=== PATIENT | female | born 1930 | race African-American/Black ===

== ENCOUNTER 2017-05-14 11:07 | Inpatient (IN) | payer MEDICARE ==
[2017-05-14] MEDS ORDERED: NS 0.9% 1000 ML* 1,000 ML IV ONE ×2 (11:34→16:02)
--- NOTE | 2017-05-14 12:10 | RAD ---
HISTORY: Weakness COMPARISONS: None VIEWS:1: Single frontal portable view of the chest at 11:48 AM FINDINGS: LINES AND TUBES: None. CARDIOMEDIASTINAL SILHOUETTE: The cardiomediastinal silhouette is normal for portable technique. PLEURA: The costophrenic angles are sharp. No pleural abnormalities are noted. LUNG PARENCHYMA: The lungs are clear. ABDOMEN: The upper abdomen is clear. There is no subphrenic gas. BONES AND SOFT TISSUES: No bone or soft tissue abnormalities are noted. IMPRESSION: NO ACTIVE CARDIOPULMONARY DISEASE.
--- NOTE | 2017-05-14 12:12 | RAD ---
INDICATION: Weakness COMPARISON: None TECHNIQUE: Noncontrast axial source images were acquired from the skull base to the vertex. FINDINGS: Ventricles/sulci: The ventricles and cisterns are normal in size and configuration for age. Brain parenchyma: There is no focal parenchymal finding, evidence of intracranial mass, or intracranial mass effect. Intracranial hemorrhage:None. Extra-axial spaces: There are no abnormal extra axial fluid collections or evidence of extra-axial mass. Calvarium: There is no calvarial fracture or other calvarial abnormality. Scalp: There is no evidence of scalp or extracalvarial soft tissue abnormality. Paranasal sinuses/mastoid: The paranasal sinuses and mastoid air cells are clear. Other: None. IMPRESSION: NEGATIVE EXAMINATION
[2017-05-14 12:43] LABS: Hematocrit 30 % (35-47); Hemoglobin 9.8 g/dl (12.0-16.0); Mean Corpuscular HGB Conc 32 g/dl (31-36); Mean Corpuscular Hemoglobin 30 pg (27-31); Mean Corpuscular Volume 92 fL (80-97); Mean Platelet Volume 12 um3 (7.4-10.4); Red Blood Count 3.27 10^6/ul (4.0-5.4); Red Cell Distribution Width 14 % (10.5-15); White Blood Count 12.2 10^3/ul (3.5-10.8)
[2017-05-14 12:45] LABS: Comments Flag Yes
[2017-05-14 12:46] LABS: Add Diff/Slide Review? Slide Review Added
[2017-05-14 12:55] LABS: Urine Bacteria 2+ (Absent); Urine Bilirubin Negative (Negative); Urine Glucose Negative (Negative); Urine Nitrite Positive (Negative)
[2017-05-14] MEDS ORDERED: Ciprofloxacin 400MG IVPREMIX(* 400 MG/200 ML BAG IVPB ONE (13:02)
[2017-05-14 13:19] LABS: Add Path Review? YES; Platelet Morphology Large
[2017-05-14 13:27] LABS: Troponin I 0.04 ng/mL (<0.04)
[2017-05-14 13:33] LABS: TSH (Thyroid Stimulating Horm) 0.04 mcIU/mL (0.34-5.60)
[2017-05-14 15:41] LABS: Albumin 2.8 g/dL (3.2-5.2); BUN/Creatinine Ratio 13.5 (8-20); C Reactive Protein 3.95 mg/L (< 5.00); EGFR African American 48.5 (>60); EGFR Non-African American 37.7 (>60); Globulin 5.5 g/dL (2-4); Magnesium 2.1 mg/dL (1.9-2.7); Potassium 2.9 mmol/L (3.5-5.0); Total Bilirubin 0.5 mg/dL (0.2-1.0); Total Protein 8.3 g/dL (6.4-8.9)
[2017-05-14 15:43] LABS: Calcium 13.9 mg/dL (8.6-10.3)
[2017-05-14] MEDS ORDERED: Potassium Chloride LIQUID* 20 MEQ PACKET PO ONE ×2 (16:01→17:22)
[2017-05-14] MEDS ORDERED: KCL 20 MEQ/100 ML IVPREMIX* 20 MEQ/100 ML BAG IV ONE ×2 (17:00→22:00)
[2017-05-14] MEDS ORDERED: KCL 10 MEQ/50 ML IVPREMIX* 10 MEQ/50 ML BAG IV SCH (17:00)
[2017-05-14] MEDS ORDERED: Potassium Chlor TAB* 20 MEQ TAB.ER PO ONE (17:00)
[2017-05-14] MEDS ORDERED: Calcitonin (Salmon) INJ* 200 UNITS/ML 2 ML VIAL IV SLOW PU SCH (17:00)
[2017-05-14] MEDS ORDERED: Calcitonin (Salmon) INJ* 200 UNITS/ML 2 ML VIAL IM SCH (18:05)
[2017-05-14 18:23] LABS: Free T3 3.9 pg/mL (2.5-3.9)
[2017-05-14 18:24] LABS: Free T4 2.15 ng/dL (0.61-1.12)
[2017-05-14] MEDS: NS 0.9% 1000 ML* 1,000 ML IV SCH (19:39)
[2017-05-14] MEDS: Calcitonin (Salmon) INJ* 200 UNITS/ML 2 ML VIAL IM SCH (19:50)
[2017-05-14] MEDS: Latanoprost 0.005%* 2.5 ml BTL BOTH EYES SCH (21:34)
[2017-05-14] MEDS: Heparin VIAL(*) 5000 UNITS/ML VIAL (FIVE THOUSAND) SUBCUT SCH (21:34)
[2017-05-14] MEDS: Acetaminophen TAB* 325 MG PO PRN (22:24)
--- NOTE | 2017-05-14 22:34 | HP ---
CC: Rosalio Stanley NP; Dr. Mustafa * ADMISSION HISTORY AND PHYSICAL: DATE OF ADMISSION: 05/14/17 PRIMARY CARE PROVIDER: Rosalio Stanley NP GREEN PRIZE PACKER: Dr. Mustafa. HEALTHCARE PROXY: Son, Guilherme, though no healthcare proxies on record. CODE STATUS: Full. Discussed with son. History obtained from interview with the patient's son, review of past medical records and EMS records. CHIEF COMPLAINT: Fatigue. HISTORY OF PRESENT ILLNESS: This is an 86-year-old female with little known medical history, relatively healthy until what the son describes as an adverse reaction to brimonidine starting in January. She started in response to the conjunctivitis that she developed from the eye drops. She was then started on Joie-D and developed hallucinations in February, which have been slow to resolve with some continued confusion since that time. However, the patient's son notes that she is at baseline A and O x3, ambulates with a cane and generally very active. However, over the last 2 days, she has been remaining in bed with a very little p.o. intake, but wants "a lot of water." He also notes that she has indicated some back pain that improved with massage. Two days prior, while talking on the phone with him, she did have a fall without loss of consciousness. Today when EMS arrived, she did indicate dysuria and the patient 's son has noted an increase in urinary frequency, unable to assess urgency as the patient is very sleepy, unable to relay meaningful information. The son has checked for and denies any recent fevers. No chills or rigors. No chest pain, shortness of breath, nausea, vomiting, or diarrhea although has had constipation. PAST MEDICAL HISTORY: Central retinal vein occlusion, glaucoma, cataracts bilaterally, hernia repair, history of known left bundle-branch block. HOME MEDICATIONS: Include: 1. Vitamin mixture with selenium 1 cap daily. 2. Pazeo 0.7% one drop both eyes in the morning. 3. Pain relieving cream topically daily as needed. 4. Magnesium 300 mg twice daily. 5. Loratadine 10 mg daily as needed. 6. Latanoprost 0.005% one drop both eyes in the evening. 7. Folic acid with vitamin B6 and folate 1 tab daily. 8. Cranberry 500 mg daily. 9. Refresh Teardrops 0.5% both eyes daily. 10. Calcium with vitamin D 500 mg daily. 11. Aspirin 81 mg daily. 12. Ascorbic acid 1000 mg daily. ALLERGIES: PENICILLIN, which causes a rash. SOCIAL HISTORY: Lives with son, spends time between [place] and [place]. Remote history of tobacco, quit in 1963. Drinks less than 3 drinks of alcohol per week. FAMILY HISTORY: Father had prostate cancer. Grandfather with an unknown cancer. Mother at the young age from tuberculosis. REVIEW OF SYSTEMS: As per HPI, per review of the patient's son, otherwise unobtainable from the patient. PHYSICAL EXAMINATION GENERAL: Elderly woman who appears stated age, lying flat in bed, eyes closed, no cardiopulmonary distress. VITALS: When seen by this author, 139/87, heart rate 90, respiratory rate is 16 , T- max in the emergency room is 98.6. She is 98% on 1 L. HEENT: Her oropharynx is clear with very dry mucous membranes. LUNGS: Clear to auscultation. HEART: Has a regular rate and rhythm with 2/6 systolic ejection murmur. ABDOMEN: Soft with mild suprapubic tenderness. EXTREMITIES: Warm, well perfused. 2+ pulses. Less than 2-second cap refill. Extremities are without clubbing, cyanosis, or edema; warm. NEURO: She is alert and oriented x0. She mumbles when I asked her name. She cannot say the year, where she is, but is able to identify her son by his voice standing at the bedside. She moves all extremities. She has cataracts in bilateral eyes. Right eye is 3 mm, left is 2. Sluggish reaction. Rest of cranial nerves not assessed secondary to the patient's inability to comply with physical exam. LABORATORY DATA/DIAGNOSTIC STUDIES: Pertinent laboratory data includes calcium 13.9 with albumin of 2.8, TSH of 0.4. Troponin I 0.04. Sodium 149, potassium 2.9. BUN 18, creatinine 1.33. White blood cell count of 12.2, hemoglobin 9.8 with MCV of 92, platelets 95, 68% neutrophils. Urine is positive for nitrites, leuk esterase, white blood cells, bacteria, squamous epithelial cells. Data reviewed. EKG: Left bundle-branch block. ASSESSMENT AND PLAN: This is an 86-year-old female, previously healthy, felt increasing fatigue, then lethargy in the setting of dysuria presenting to the hospital, found with hypercalcemia, hypokalemia, and acute kidney injury. It is possible this is all in the setting of urinary tract infection causing acute kidney injury with hypercalcemia compounded by the patient's calcium supplements. However, further investigation is needed while acute problems are treated. 1. Lethargy, suspect in the setting of underlying infection. The patient is receiving ciprofloxacin now dosed q.24 based on creatinine clearance of less than 30. Hypercalcemia may also be playing a role. Last checked was in August 2015, so the rate of change is unclear. Treated with IV crystalloids, calcitonin, and bisphosphonate. Recheck this evening and again in the morning. 2. Hypercalcemia. Again suspect in the setting of acute kidney injury and calcium supplementation; however, in the setting of acute kidney injury and noted back pain, we will also check SPEP and UPEP to evaluate for myeloma. 3. Elevated troponins suspect in the setting of demand in the setting of infection. We will trend troponins for 2 additional checks. 4. Acute kidney injury in the setting of potential infection as well as decreased p.o. intake. Treated with crystalloids. Recheck in the morning. 5. Hypokalemia. Replete now p.o. and IV. 6. Hypernatremia, suspect in the setting of dehydration with decreased p.o. intake and infection. 7. Low TSH, add on free T3 and free T4 now. 8. DVT prophylaxis, heparin subcu. 9. Code status is full. [id number]/[facility] #: [id number] MTDD
[2017-05-15 00:08] LABS: Albumin 2.7 g/dL (3.2-5.2); BUN/Creatinine Ratio 13.3 (8-20); EGFR African American 54.7 (>60); EGFR Non-African American 42.5 (>60); Globulin 5.6 g/dL (2-4); Total Bilirubin 0.5 mg/dL (0.2-1.0); Total Protein 8.3 g/dL (6.4-8.9)
[2017-05-15 00:16] LABS: Troponin I 0.05 ng/mL (<0.04)
[2017-05-15 04:39] LABS: Hematocrit 33 % (35-47); Hemoglobin 10.3 g/dl (12.0-16.0); Mean Corpuscular HGB Conc 32 g/dl (31-36); Mean Corpuscular Hemoglobin 29 pg (27-31); Mean Corpuscular Volume 92 fL (80-97); Mean Platelet Volume 12 um3 (7.4-10.4); Red Blood Count 3.51 10^6/ul (4.0-5.4); Red Cell Distribution Width 14 % (10.5-15); White Blood Count 12.2 10^3/ul (3.5-10.8)
[2017-05-15 04:40] LABS: Comments Flag Yes
[2017-05-15 04:41] LABS: Add Diff/Slide Review? Manual Diff Added
[2017-05-15 04:47] LABS: Albumin 2.7 g/dL (3.2-5.2); BUN/Creatinine Ratio 13.9 (8-20); Calcium 12.5 mg/dL (8.6-10.3); Direct Bilirubin 0.5 mg/dL (0.03-0.18); EGFR African American 53.6 (>60); EGFR Non-African American 41.7 (>60); Globulin 5.2 g/dL (2-4); Magnesium 1.7 mg/dL (1.9-2.7); Potassium 2.9 mmol/L (3.5-5.0); Total Bilirubin 0.5 mg/dL (0.2-1.0); Total Protein 7.9 g/dL (6.4-8.9)
[2017-05-15] MEDS: NS 0.9% 1000 ML* 1,000 ML IV SCH (05:34)
[2017-05-15] MEDS: Heparin VIAL(*) 5000 UNITS/ML VIAL (FIVE THOUSAND) SUBCUT SCH ×3 (05:38→22:20)
[2017-05-15 05:56] LABS: Ferritin 149.6 ng/mL (11-307)
[2017-05-15 06:30] LABS: Hypochromasia 1+; Immature Granulocytes 5 % (0-9); Macrocytosis 1+; Microcytosis 1+; Neutrophil % 71 % (38-83); Reactive Lymph % 1 % (0-6)
[2017-05-15] MEDS ORDERED: Potassium Chlor TAB* 20 MEQ TAB.ER PO SCH (08:00)
--- NOTE | 2017-05-15 08:16 | ED ---
Christel Viera Alfonso, scribed for Cliff Daigle MD on 05/14/17 at 1135 . Complex/Multi-Sys Presentation - HPI Summary HPI Summary: This patient is an 86 year old F presenting to [facility] accompanied by son with a chief complaint of generalized weakness since two days ago. The patient rates the pain 0/10 in severity. Symptoms aggravated and alleviated by nothing. Son reports loss of appetite (drinking a lot of juice but not eating much), inability to ambulate, hallucinations (after Joie D), constipation (last BM 4 -5 days ago), hip pain (secondary to fall two weeks ago), and weight loss. Son denies fever, chills, cough, CP, SOB, and dysuria. Son reports recent cataract surgery secondary to allergic conjunctivitis. - History Of Current Complaint Chief Complaint: EDWeakness Time Seen by Provider: 05/14/17 11:26 Hx Obtained From: Patient Onset/Duration: Sudden Onset, Lasting Days - 2, Still Present Timing: Constant Severity Currently: Moderate Severity Initially: Moderate Aggravating Factor(s): Nothing Alleviating Factor(s): Nothing. Associated Signs And Symptoms: Positive: Other - Son reports loss of appetite ( drinking a lot of juice but not eating much), inability to ambulate, hallucinations (after Joie D), constipation (last BM 4-5 days ago), hip pain (secondary to fall two weeks ago), and weight loss. Son denies fever, chills, cough, CP, SOB, and dysuria. - Allergies/Home Medications Allergies/Adverse Reactions: Allergies Allergy/AdvReac Type Severity Reaction Status Date / Time Penicillins [PCN] Allergy ITCHY AND Verified 10/18/15 10:04 RASH Home Medications: Home Medications Aspirin EC Low Dose* [Ecotrin EC Low Dose 81 MG*] 81 mg PO QAM 05/14/17 [ History Confirmed 05/14/17] Calcium/Vitamin D TAB 250/125* [Oscal D TAB 250/125*] 500 mg PO DAILY 05/14/17 [ History Confirmed 05/14/17] Carboxymethylcellulose Sodium [Refresh Tears] 0.5 % BOTH EYES DAILY 05/14/17 [ History Confirmed 05/14/17] Cranberry (Vaccinium Macrocarp [Cranberry Concentrate] 500 mg PO DAILY 05/14/17 [History Confirmed 05/14/17] Folic Acid-Vitamin B6-Vitamin [Folic Acid/B-6/B-12] 1 tab PO DAILY 05/14/17 [ History Confirmed 05/14/17] Magnesium [Magnesium Elemental] 300 mg PO BID 05/14/17 [History Confirmed ] Menthol-Methyl Salicylate (Lisa [Pain Relieving Cream] 1 cre TOPICAL DAILY PRN [History Confirmed 05/14/17] Pazeo 0.7% 1 drop BOTH EYES QAM 05/14/17 [History Confirmed 05/14/17] Vitamin Mixture [Vitamin E/Selenium 400-50 Unit-Mcg] 1 cap PO DAILY 05/14/17 [ History Confirmed 05/14/17] PMH/Surg Hx/FS Hx/Imm Hx Musculoskeletal History: Reports: Hx Arthritis - HANDS Sensory History: Reports: Hx Cataracts - BILATERAL, Hx Glaucoma - BILATERAL Denies: Hx Contacts or Glasses, Hx Hearing Aid Opthamlomology History: Reports: Hx Cataracts - BILATERAL, Hx Glaucoma - BILATERAL Denies: Hx Contacts or Glasses - Surgical History Surgery Procedure, Year, and Place: HERNIA REPAIR-1980. cataract surgery Hx Anesthesia Reactions: No Infectious Disease History: No Infectious Disease History: Denies: Traveled Outside the [place] in Last 30 Days - Family History Known Family History: Positive: Unknown - Per history and physical 10/14/15 - Social History Alcohol Use: Daily Alcohol Amount: 1 DRINK PER DAY Substance Use Type: Reports: None Smoking Status (MU): Former Smoker Amount Used/How Often: < 1 PPD X5 YEARS Have You Smoked in the Last Year: No Review of Systems Negative: Fever, Chills Negative: Chest Pain Negative: Shortness Of Breath, Cough Gastrointestinal: Other - Positive reports loss of appetite (drinking a lot of juice but not eating much), constipation (last BM 4-5 days ago), and weight loss Negative: dysuria Positive: Other - Positive inability to ambulate, hip pain (secondary to fall two weeks ago) Neurological: Other - Positive hallucinations (after Joie D) Positive: Weakness All Other Systems Reviewed And Are Negative: Yes Physical Exam - Summary Physical Exam Summary: VITAL SIGNS: Reviewed. GENERAL: Patient is a debilitated and ill appearing female who is lying comfortable in the stretcher. Patient is not in any acute respiratory distress. HEAD AND FACE: No signs of trauma. No ecchymosis, hematomas or skull depressions. No sinus tenderness. EYES: PERRLA, EOMI x 2, No injected conjunctiva, no nystagmus. EARS: Hearing grossly intact. Ear canals and tympanic membranes are within normal limits. MOUTH: Oropharynx within normal limits. NECK: Supple, trachea is midline, no adenopathy, no JVD, no carotid bruit, no c- spine tenderness, neck with full ROM. CHEST: Symmetric, no tenderness at palpation LUNGS: Clear to auscultation bilaterally. No wheezing or crackles. CVS: Regular rate and rhythm, S1 and S2 present, no murmurs or gallops appreciated. ABDOMEN: Soft, non-tender. No signs of distention. No rebound no guarding, and no masses palpated. Bowel sounds are normal. EXTREMITIES: FROM in all major joints, no edema, no cyanosis or clubbing. NEURO: Alert. No acute neurological deficits. Speech is soft and follows commands. SKIN: Dry and warm Triage Information Reviewed: Yes Vital Signs On Initial Exam: Initial Vitals Temp Pulse Resp BP Pulse Ox 98.6 F 97 15 133/94 95 05/14/17 11:14 05/14/17 11:14 05/14/17 11:14 05/14/17 11:14 05/14/17 11:14 Vital Signs Reviewed: Yes Diagnostics - Vital Signs Vital Signs Temp Pulse Resp BP Pulse Ox 05/14/17 11:14 98.6 F 97 15 133/94 95 - Laboratory Lab Results: Lab Results 05/14/17 05/14/17 05/14/17 Range/Units 12:25 12:25 12:25 WBC 12.2 H (3.5-10.8) 10^3/ul RBC 3.27 L (4.0-5.4) 10^6/ul Hgb 9.8 L (12.0-16.0) g/dl Hct 30 L (35-47) % MCV 92 (80-97) fL MCH 30 (27-31) pg MCHC 32 (31-36) g/dl RDW 14 (10.5-15) % Plt Count 95 L (150-450) 10^3/ul MPV 12 H (7.4-10.4) um3 Neut % (Auto) 68.2 (38-83) % Lymph % (Auto) 21.0 L (25-47) % [place]leigh % (Auto) 8.6 (1-9) % Eos % (Auto) 1.3 (0-6) % Baso % (Auto) 0.9 (0-2) % Absolute Neuts (auto) 8.3 H (1.5-7.7) 10^3/ul Absolute Lymphs (auto) 2.6 (1.0-4.8) 10^3/ul Absolute Monos (auto) 1.1 H (0-0.8) 10^3/ul Absolute Eos (auto) 0.2 (0-0.6) 10^3/ul Absolute Basos (auto) 0.1 (0-0.2) 10^3/ul Absolute Nucleated RBC 0.02 10^3/ul Nucleated RBC % 0.2 Platelet Morphology Large Normal RBC Morphology Not Reportable Hem Pathologist Commnt Sodium Cancelled Potassium Cancelled Chloride Cancelled Carbon Dioxide Cancelled Anion Gap Cancelled BUN Cancelled Creatinine Cancelled Est GFR ( Amer) Cancelled Est GFR (Non-Af Amer) Cancelled BUN/Creatinine Ratio Cancelled Glucose Cancelled Lactic Acid (0.5-2.0) mmol/L Calcium Cancelled Magnesium Cancelled Total Bilirubin Cancelled AST Cancelled ALT Cancelled Alkaline Phosphatase Cancelled Total Creatine Kinase Cancelled Troponin I 0.04 H* (<0.04) ng/mL C-Reactive Protein Cancelled B-Natriuretic Peptide 430 H ( - 100) pg/mL Total Protein Cancelled Albumin Cancelled Globulin Cancelled Albumin/Globulin Ratio Cancelled TSH 0.04 L (0.34-5.60) mcIU/mL Free T4 (0.61-1.12) ng/dL Free T3 (2.5-3.9) pg/mL Urine Color Urine Appearance Urine pH (5-9) Ur Specific Martin (1.010-1.030) Urine Protein (Negative) Urine Ketones (Negative) Urine Blood (Negative) Urine Nitrate (Negative) Urine Bilirubin (Negative) Urine Urobilinogen (Negative) Ur Leukocyte Esterase (Negative) Urine WBC (Auto) (Absent) Urine RBC (Auto) (Absent) Ur Squamous Epith Cells (Absent) Urine Bacteria (Absent) Hyaline Casts (Absent) Urine Glucose (Negative) Urine Ascorbic Acid (Negative) 05/14/17 05/14/17 05/14/17 Range/Units 12:36 13:50 14:45 WBC (3.5-10.8) 10^3/ul RBC (4.0-5.4) 10^6/ul Hgb (12.0-16.0) g/dl Hct (35-47) % MCV (80-97) fL MCH (27-31) pg MCHC (31-36) g/dl RDW (10.5-15) % Plt Count (150-450) 10^3/ul MPV (7.4-10.4) um3 Neut % (Auto) (38-83) % Lymph % (Auto) (25-47) % [place]leigh % (Auto) (1-9) % Eos % (Auto) (0-6) % Baso % (Auto) (0-2) % Absolute Neuts (auto) (1.5-7.7) 10^3/ul Absolute Lymphs (auto) (1.0-4.8) 10^3/ul Absolute Monos (auto) (0-0.8) 10^3/ul Absolute Eos (auto) (0-0.6) 10^3/ul Absolute Basos (auto) (0-0.2) 10^3/ul Absolute Nucleated RBC 10^3/ul Nucleated RBC % Platelet Morphology Normal RBC Morphology Hem Pathologist Commnt Sodium 149 H Potassium 2.9 L Chloride 110 Carbon Dioxide 31 Anion Gap 8 BUN 18 Creatinine 1.33 H Est GFR ( Amer) 48.5 Est GFR (Non-Af Amer) 37.7 BUN/Creatinine Ratio 13.5 Glucose 95 Lactic Acid 0.5 (0.5-2.0) mmol/L Calcium 13.9 H* Magnesium 2.1 Total Bilirubin 0.50 AST 16 ALT 9 Alkaline Phosphatase 54 Total Creatine Kinase 25 Troponin I (<0.04) ng/mL C-Reactive Protein 3.95 B-Natriuretic Peptide ( - 100) pg/mL Total Protein 8.3 Albumin 2.8 L Globulin 5.5 H Albumin/Globulin Ratio 0.5 L TSH (0.34-5.60) mcIU/mL Free T4 2.15 H (0.61-1.12) ng/dL Free T3 3.90 (2.5-3.9) pg/mL Urine Color Yellow Urine Appearance Cloudy Urine pH 6.0 (5-9) Ur Specific Martin 1.009 L (1.010-1.030) Urine Protein Negative (Negative) Urine Ketones Negative (Negative) Urine Blood Negative (Negative) Urine Nitrate Positive H (Negative) Urine Bilirubin Negative (Negative) Urine Urobilinogen Negative (Negative) Ur Leukocyte Esterase 3+ H (Negative) Urine WBC (Auto) 3+(>20/hpf) H (Absent) Urine RBC (Auto) Absent (Absent) Ur Squamous Epith Cells Present H (Absent) Urine Bacteria 2+ H (Absent) Hyaline Casts Present H (Absent) Urine Glucose Negative (Negative) Urine Ascorbic Acid * H (Negative) Result Diagrams: 05/15/17 04:25 05/15/17 04:25 Lab Statement: Any lab studies that have been ordered have been reviewed, and results considered in the medical decision making process. - Radiology CXR Radiology Interpretation Completed By: Radiologist - NO ACTIVE CARDIOPULMONARY DISEASE - CT Brain CT Interpretation Completed By: Radiologist - NEGATIVE EXAMINATION. - EKG 1221 Cardiac Rate: NL - BPM 98 EKG Rhythm: Sinus Rhythm EKG Interpretation: LBBB. ST elevations in V1 V2 and ST depression V4-V6 secondary to the LBBB Complex Multi-Symp Course/Dx Course Of Treatment: This patient is an 86 year old F presenting to [facility] accompanied by son with a chief complaint of generalized weakness since two days ago. The patient rates the pain 0/10 in severity. Symptoms aggravated and alleviated by nothing. Son reports loss of appetite (drinking a lot of juice but not eating much), inability to ambulate, hallucinations (after Joie D), constipation (last BM 4-5 days ago), hip pain (secondary to fall two weeks ago) , and weight loss. Son denies fever, chills, cough, CP, SOB, and dysuria. Son reports recent cataract surgery secondary to allergic conjunctivitis. Assessment/Plan: Test results show WBC of 12.2, slight anemia, sodium of 149, potassium of 2.9, Calcium of 13.9, which is consistent with dehydration. Troponin is 0.04 but the patient had no CP. BNP 430. Urinalysis positive for UTI. EKG reveals NSR, LBBB, and ST elevations in V1 and V2 and ST depression V4 -V6 secondary to the LBBB. CT brain reveals NEGATIVE EXAMINATION. CXR reveals NO ACTIVE CARDIOPULMONARY DISEASE. In the ED course the patient was hydrated with IV fluids, she was given potassium for the hypokalemia, Cipro for the UTI, and the patient is feeling slightly better. At this point, I discussed the case with Dr. Mendez (hospitalist) who agrees to admit the patient. Patient is hemodynamically stable and alert and oriented to person, place, and time. - Diagnoses Provider Diagnoses: UTI (urinary tract infection), Anemia, Hypokalemia, Hypercalcemia, Dehydration - Physician Notifications Discussed Care Of Patient With: Zuleima Perez Time Discussed With Above Provider: 12:58 Instructed by Provider To: Other - Consulted Dr. Perez (adjustment examiner) who will review the EKG. After reviewing the EKG, Dr. Perez states the EKG does not reveal STEMI and that the reading is due to the LBBB. Consulted Dr. Mendez ( hospitalist) at 1558 who agrees to admit the patient. Discharge - Discharge Plan Condition: Stable Disposition: ADMITTED TO [facility] The documentation as recorded by the Christel blanchard Alfonso accurately reflects the service I personally performed and the decisions made by me, Cliff Daigle MD.
[2017-05-15] MEDS: NS 0.45% KCl 20 Meq 1000 ML* 1,000 ML IV SCH ×2 (08:18→19:42)
[2017-05-15] MEDS: Artificial Tears* 15 ML BTL BOTH EYES SCH (08:24)
[2017-05-15] MEDS: Potassium Chloride LIQUID* 20 MEQ PACKET PO SCH ×2 (09:48→14:44)
[2017-05-15] MEDS: Calcitonin (Salmon) INJ* 200 UNITS/ML 2 ML VIAL IM SCH ×2 (09:49→20:23)
[2017-05-15] MEDS: Ascorbic Acid TAB* 500 MG PO SCH (09:52)
[2017-05-15] MEDS: Aspirin EC Low Dose* 81 MG TAB.EC PO SCH (09:52)
--- NOTE | 2017-05-15 12:04 | PN ---
Subjective Date of Service: 05/15/17 Interval History: Patient seen this morning. Remains confused although son at bedside feels she is doing better than yesterday. She reports some mild LE pains, denies chest pain, SOB, abdominal pain. Cannot tell me where she is or why she is here. Family History: Unchanged from Admission Social History: Unchanged from Admission Past Medical History: Unchanged from Admission Objective Active Medications: Acetaminophen (Tylenol Tab*) 650 mg PO Q4H PRN Ascorbic Acid (Vitamin C Tab*) 1,000 mg PO DAILY KALIE Aspirin (Aspirin Ec Low Dose*) 81 mg PO QAM KALIE Calcitonin [place] (Miacalcin Inj*) 240 units IM 0800,2000 KALIE Heparin Sodium (Porcine) (Heparin Vial(*)) 5,000 units SUBCUT Q8HR KALIE Ciprofloxacin/Dextrose (Cipro 400 Mg Ivpremix(*)) 400 mg in 200 mls @ 200 mls/ hr IVPB Q24H KALIE Potassium Chloride/Sodium Chloride (Ns 0.45% Kcl 20 Meq 1000 Ml*) 1,000 mls @ 100 mls/hr IV PER RATE KALIE Latanoprost (Xalatan 0.005%*) 1 drop BOTH EYES BEDTIME KALIE [place] 0.7% 1 drop BOTH EYES QAM KALIE Ondansetron HCl (Zofran Inj*) 4 mg IV Q4H PRN Polyvinyl Alcohol (Polyvinyl Alcohol 1.4% Opth*) 1 drop BOTH EYES DAILY KALIE Vital Signs 05/14/17 05/14/17 05/14/17 17:00 18:25 19:45 Temperature 98.2 F 98.9 F Pulse Rate 97 97 90 Respiratory 14 12 16 Rate Blood Pressure 136/61 147/58 (mmHg) O2 Sat by Pulse 99 98 95 Oximetry 05/14/17 05/15/17 05/15/17 23:52 04:04 07:26 Temperature 98.2 F 98.3 F 97.3 F Pulse Rate 86 90 92 Respiratory 20 16 24 Rate Blood Pressure 99/72 148/70 140/69 (mmHg) O2 Sat by Pulse 98 99 97 Oximetry Oxygen Devices in Use Now: None Appearance: Elderly, AAF, laying in chair in NAD Eyes: No Scleral Icterus Ears/Nose/Mouth/Throat: - - Dry MM Neck: NL Appearance and Movements; NL JVP Respiratory: Symmetrical Chest Expansion and Respiratory Effort, Clear to Auscultation Cardiovascular: NL Sounds; No Murmurs; No JVD, RRR Abdominal: NL Sounds; No Tenderness; No Distention Lymphatic: No Cervical Adenopathy Extremities: No Edema Skin: No Rash or Ulcers Neurological: - - Lerthargic, oriented to self only, no focal deficits Result Diagrams: 05/15/17 04:25 05/15/17 04:25 Additional Lab and Data: Lab Results 05/14/17 05/14/17 05/14/17 Range/Units 12:25 12:25 12:25 WBC 12.2 H (3.5-10.8) 10^3/ul RBC 3.27 L (4.0-5.4) 10^6/ul Hgb 9.8 L (12.0-16.0) g/dl Hct 30 L (35-47) % MCV 92 (80-97) fL MCH 30 (27-31) pg MCHC 32 (31-36) g/dl RDW 14 (10.5-15) % Plt Count 95 L (150-450) 10^3/ul MPV 12 H (7.4-10.4) um3 Neut % (Auto) 68.2 (38-83) % Lymph % (Auto) 21.0 L (25-47) % [place] % (Auto) 8.6 (1-9) % Eos % (Auto) 1.3 (0-6) % Baso % (Auto) 0.9 (0-2) % Absolute Neuts (auto) 8.3 H (1.5-7.7) 10^3/ul Absolute Lymphs (auto) 2.6 (1.0-4.8) 10^3/ul Absolute Monos (auto) 1.1 H (0-0.8) 10^3/ul Absolute Eos (auto) 0.2 (0-0.6) 10^3/ul Absolute Basos (auto) 0.1 (0-0.2) 10^3/ul Absolute Nucleated RBC 0.02 10^3/ul Nucleated RBC % 0.2 Platelet Morphology Large Normal RBC Morphology Not Reportable Hem Pathologist Commnt Sodium Cancelled Potassium Cancelled Chloride Cancelled Carbon Dioxide Cancelled Anion Gap Cancelled BUN Cancelled Creatinine Cancelled Est GFR ( Amer) Cancelled Est GFR (Non-Af Amer) Cancelled BUN/Creatinine Ratio Cancelled Glucose Cancelled Lactic Acid (0.5-2.0) mmol/L Calcium Cancelled Magnesium Cancelled Total Bilirubin Cancelled AST Cancelled ALT Cancelled Alkaline Phosphatase Cancelled Total Creatine Kinase Cancelled Troponin I 0.04 H* (<0.04) ng/mL C-Reactive Protein Cancelled B-Natriuretic Peptide 430 H ( - 100) pg/mL Total Protein Cancelled Albumin Cancelled Globulin Cancelled Albumin/Globulin Ratio Cancelled TSH 0.04 L (0.34-5.60) mcIU/mL Free T4 (0.61-1.12) ng/dL Free T3 (2.5-3.9) pg/mL Urine Color Urine Appearance Urine pH (5-9) Ur Specific [place] (1.010-1.030) Urine Protein (Negative) Urine Ketones (Negative) Urine Blood (Negative) Urine Nitrate (Negative) Urine Bilirubin (Negative) Urine Urobilinogen (Negative) Ur Leukocyte Esterase (Negative) Urine WBC (Auto) (Absent) Urine RBC (Auto) (Absent) Ur Squamous Epith Cells (Absent) Urine Bacteria (Absent) Hyaline Casts (Absent) Urine Glucose (Negative) Urine Ascorbic Acid (Negative) 05/14/17 05/14/17 05/14/17 Range/Units 12:36 13:50 14:45 WBC (3.5-10.8) 10^3/ul RBC (4.0-5.4) 10^6/ul Hgb (12.0-16.0) g/dl Hct (35-47) % MCV (80-97) fL MCH (27-31) pg MCHC (31-36) g/dl RDW (10.5-15) % Plt Count (150-450) 10^3/ul MPV (7.4-10.4) um3 Neut % (Auto) (38-83) % Lymph % (Auto) (25-47) % [place] % (Auto) (1-9) % Eos % (Auto) (0-6) % Baso % (Auto) (0-2) % Absolute Neuts (auto) (1.5-7.7) 10^3/ul Absolute Lymphs (auto) (1.0-4.8) 10^3/ul Absolute Monos (auto) (0-0.8) 10^3/ul Absolute Eos (auto) (0-0.6) 10^3/ul Absolute Basos (auto) (0-0.2) 10^3/ul Absolute Nucleated RBC 10^3/ul Nucleated RBC % Platelet Morphology Normal RBC Morphology Hem Pathologist Commnt Sodium 149 H Potassium 2.9 L Chloride 110 Carbon Dioxide 31 Anion Gap 8 BUN 18 Creatinine 1.33 H Est GFR ( Amer) 48.5 Est GFR (Non-Af Amer) 37.7 BUN/Creatinine Ratio 13.5 Glucose 95 Lactic Acid 0.5 (0.5-2.0) mmol/L Calcium 13.9 H* Magnesium 2.1 Total Bilirubin 0.50 AST 16 ALT 9 Alkaline Phosphatase 54 Total Creatine Kinase 25 Troponin I (<0.04) ng/mL C-Reactive Protein 3.95 B-Natriuretic Peptide ( - 100) pg/mL Total Protein 8.3 Albumin 2.8 L Globulin 5.5 H Albumin/Globulin Ratio 0.5 L TSH (0.34-5.60) mcIU/mL Free T4 2.15 H (0.61-1.12) ng/dL Free T3 3.90 (2.5-3.9) pg/mL Urine Color Yellow Urine Appearance Cloudy Urine pH 6.0 (5-9) Ur Specific [place] 1.009 L (1.010-1.030) Urine Protein Negative (Negative) Urine Ketones Negative (Negative) Urine Blood Negative (Negative) Urine Nitrate Positive H (Negative) Urine Bilirubin Negative (Negative) Urine Urobilinogen Negative (Negative) Ur Leukocyte Esterase 3+ H (Negative) Urine WBC (Auto) 3+(>20/hpf) H (Absent) Urine RBC (Auto) Absent (Absent) Ur Squamous Epith Cells Present H (Absent) Urine Bacteria 2+ H (Absent) Hyaline Casts Present H (Absent) Urine Glucose Negative (Negative) Urine Ascorbic Acid * H (Negative) Assess/Plan/Problems-Billing Assessment: Hypercalcemia, UTI, JEISON, hypernatremia and mild troponin elevation in an 86 yo F with hx of LBBB, glaucoma, cataracts, central retinal vein occlusion - Patient Problems (1) UTI (urinary tract infection) Current Visit: Yes Comment: Continue IV Cipro, awaiting culture results. Could be contributing to AMS/confusion. (2) Hypercalcemia Current Visit: Yes Comment: Improving. Received Zometa in ED. Continue calcitonin and IVF. Recheck in AM. Work-up underway for etiology, was on supplements at home which are being held. Have ordered PTH level today. SPEP/ UPEP pending. (3) Hypernatremia Current Visit: Yes Comment: Due to poor PO intake, changed to 1/2NS with K, encourage free water intake. (4) Troponin level elevated Current Visit: Yes Comment: Peaked at 0.06, no concerning events on tele, no chest pain. Likely demand-mediated. (5) Abnormal TSH Current Visit: Yes Comment: FT4 elevated and FT3 at upper limit of normal. If patient has hyperthyroidism this could contribute to elevated calcium levels. Will contact Dr. Wisdom for additional guidance and ?initiation of therapy. (6) Hypokalemia Current Visit: Yes Comment: Replete (7) DVT prophylaxis Current Visit: Yes Comment: HSQ
[2017-05-15] MEDS: OLOPATADINE 0.7% BOTH EYES SCH (12:13)
[2017-05-15 13:37] LABS: Calcium (PTH Intact) 11.7 mg/dL (8.6-10.3)
[2017-05-15] MEDS ORDERED: Potassium Chloride LIQUID* 20 MEQ PACKET ONE (14:37)
[2017-05-15] MEDS ORDERED: Ciprofloxacin 400MG IVPREMIX(* 400 MG/200 ML BAG IVPB SCH (15:00)
[2017-05-15] MEDS: Latanoprost 0.005%* 2.5 ml BTL BOTH EYES SCH (20:29)
[2017-05-16 04:41] LABS: BUN/Creatinine Ratio 11.3 (8-20); Calcium 10.4 mg/dL (8.6-10.3); EGFR African American 69.9 (>60); EGFR Non-African American 54.3 (>60); Potassium 3.1 mmol/L (3.5-5.0)
[2017-05-16] MEDS: Heparin VIAL(*) 5000 UNITS/ML VIAL (FIVE THOUSAND) SUBCUT SCH ×3 (05:12→21:46)
[2017-05-16] MEDS: NS 0.45% KCl 20 Meq 1000 ML* 1,000 ML IV SCH (06:35)
[2017-05-16] MEDS: Artificial Tears* 15 ML BTL BOTH EYES SCH (09:31)
[2017-05-16] MEDS: OLOPATADINE 0.7% BOTH EYES SCH (09:33)
[2017-05-16] MEDS: Acetaminophen TAB* 325 MG PO PRN (09:35)
[2017-05-16] MEDS: Ascorbic Acid TAB* 500 MG PO SCH (09:36)
[2017-05-16] MEDS: Aspirin EC Low Dose* 81 MG TAB.EC PO SCH (09:40)
[2017-05-16] MEDS ORDERED: D5W KCl 40 MEQ 1000 ML* 1,000 ML IV SCH (10:00)
--- NOTE | 2017-05-16 10:17 | PN ---
Subjective Date of Service: 05/16/17 Interval History: Patient seen this morning, remains quite lethargic during my exam although son states she was more alert last night and earlier this morning. States she ate some toast, yogurt and tea this morning. He feels she is improving. Family History: Unchanged from Admission Social History: Unchanged from Admission Past Medical History: Unchanged from Admission Objective Active Medications: Acetaminophen (Tylenol Tab*) 650 mg PO Q4H PRN Ascorbic Acid (Vitamin C Tab*) 1,000 mg PO DAILY KALIE Aspirin (Aspirin Low Dose Tab*) 81 mg PO DAILY KALIE Heparin Sodium (Porcine) (Heparin Vial(*)) 5,000 units SUBCUT Q8HR KALIE Ciprofloxacin/Dextrose (Cipro 400 Mg Ivpremix(*)) 400 mg in 200 mls @ 200 mls/ hr IVPB Q24H KALIE Potassium Chloride/Dextrose (D5w Kcl 40 Meq 1000 Ml*) 1,000 mls @ 100 mls/hr IV PER RATE KALIE Latanoprost (Xalatan 0.005%*) 1 drop BOTH EYES BEDTIME KALIE Pto [place] 0.7% (Ophthalamic Drips) 1 drop BOTH EYES QAM KALIE Ondansetron HCl (Zofran Inj*) 4 mg IV Q4H PRN Polyvinyl Alcohol (Polyvinyl Alcohol 1.4% Opth*) 1 drop BOTH EYES DAILY KALIE Vital Signs 05/15/17 05/15/17 05/15/17 11:53 15:29 20:00 Temperature 97.6 F 98.0 F Pulse Rate 87 81 Respiratory 16 16 16 Rate Blood Pressure 145/61 148/78 (mmHg) O2 Sat by Pulse 99 99 Oximetry 05/15/17 05/16/17 05/16/17 20:07 00:01 03:42 Temperature 97.7 F 98.8 F 99.0 F Pulse Rate 88 113 94 Respiratory 16 20 20 Rate Blood Pressure 139/66 118/50 142/62 (mmHg) O2 Sat by Pulse 95 100 Oximetry Oxygen Devices in Use Now: None Appearance: Elderly, AAF, laying in chair, lethargic Eyes: No Scleral Icterus Ears/Nose/Mouth/Throat: Mucous Membranes Moist Neck: NL Appearance and Movements; NL JVP Respiratory: Symmetrical Chest Expansion and Respiratory Effort, Clear to Auscultation Cardiovascular: NL Sounds; No Murmurs; No JVD, RRR Abdominal: NL Sounds; No Tenderness; No Distention Lymphatic: No Cervical Adenopathy Extremities: No Edema Skin: No Rash or Ulcers Neurological: - - Lethargic, slow to respond to questioning, no focal deficits Result Diagrams: 05/15/17 04:25 05/16/17 04:20 Assess/Plan/Problems-Billing Assessment: Hypercalcemia, UTI, JEISON, hypernatremia and mild troponin elevation in an 86 yo F with hx of LBBB, glaucoma, cataracts, central retinal vein occlusion - Patient Problems (1) UTI (urinary tract infection) Current Visit: Yes Comment: UCx growing schumacher-sensitive E coli. Change to Ancef , will keep an eye out for allergic reaction. (2) Hypercalcemia Current Visit: Yes Comment: Improving. PTH low normal, 25-Vitamin D low. SPEP/ UPEP, PTHrP, 1-25 Vit D pending. Received Zometa in ED. Stop calcitonin, continue IVF. Was on supplements at home which are being held. (3) Hypernatremia Current Visit: Yes Comment: Does not seem to be taking much PO. Will place on D5W+K, encourage free water intake. (4) Troponin level elevated Current Visit: Yes Comment: Peaked at 0.06, no concerning events on tele, no chest pain. Likely demand-mediated. (5) Abnormal TSH Current Visit: Yes Comment: FT4 elevated and FT3 at upper limit of normal. Dr. Wisdom recommended additional thyroid testing to evaluate for Graves, Hashimotos. Can get thyroid US as outpatient. No recommended treatment at this time, recheck TSH, FT4, FT3 in AM. (6) Hypokalemia Current Visit: Yes Comment: Replete (7) DVT prophylaxis Current Visit: Yes Comment: HSQ Status and Disposition: Inpatient for continued work-up and lethargy
[2017-05-16] MEDS: ceFAZolin 1 GM VIAL(*) 1 GM in NS 0.9% 50 ML* 50 ML IVPB SCH ×2 (11:50→19:31)
[2017-05-16] MEDS: Potassium Chloride IV* 40 MEQ in D5W 1000 ML BAG* 1,000 ML IVPB SCH ×2 (13:13→23:52)
[2017-05-16] MEDS: Acetaminophen ADULT LIQ* 650 MG/20.3 ML UDC PO PRN (13:20)
[2017-05-16] MEDS: Latanoprost 0.005%* 2.5 ml BTL BOTH EYES SCH (21:46)
[2017-05-17] MEDS: Acetaminophen ADULT LIQ* 650 MG/20.3 ML UDC PO PRN ×2 (01:40→09:57)
[2017-05-17] MEDS: ceFAZolin 1 GM VIAL(*) 1 GM in NS 0.9% 50 ML* 50 ML IVPB SCH ×3 (03:11→20:55)
[2017-05-17 04:56] LABS: BUN/Creatinine Ratio 9.5 (8-20); Calcium 9.6 mg/dL (8.6-10.3); EGFR African American 63.8 (>60); EGFR Non-African American 49.6 (>60); Potassium 3.5 mmol/L (3.5-5.0)
[2017-05-17] MEDS: Heparin VIAL(*) 5000 UNITS/ML VIAL (FIVE THOUSAND) SUBCUT SCH ×3 (05:09→20:59)
[2017-05-17 05:56] LABS: TSH (Thyroid Stimulating Horm) 0.56 mcIU/mL (0.34-5.60)
[2017-05-17 06:01] LABS: Free T3 2.8 pg/mL (2.5-3.9)
[2017-05-17 06:02] LABS: Free T4 1.73 ng/dL (0.61-1.12)
--- NOTE | 2017-05-17 08:21 | PN ---
Subjective Date of Service: 05/17/17 Interval History: Patient seen this morning. More alert this morning, conversant. Denies pain, states she is hungry for corn flakes. Still confused. Family History: Unchanged from Admission Social History: Unchanged from Admission Past Medical History: Unchanged from Admission Objective Active Medications: Acetaminophen (Tylenol Adult Liq*) 650 mg PO Q4H PRN Ascorbic Acid (Vitamin C Tab*) 1,000 mg PO DAILY KALIE Aspirin (Aspirin Low Dose Tab*) 81 mg PO DAILY KALIE Heparin Sodium (Porcine) (Heparin Vial(*)) 5,000 units SUBCUT Q8HR KALIE Cefazolin Sodium 1 gm/ Sodium (Chloride) 50 mls @ 200 mls/hr IVPB Q8H KALIE Potassium Chloride 40 meq/ (Dextrose) 1,020 mls @ 102 mls/hr IVPB Q10H KALIE Latanoprost (Xalatan 0.005%*) 1 drop BOTH EYES BEDTIME KALIE Pto [place] 0.7% (Ophthalamic Drips) 1 drop BOTH EYES QAM KALIE Ondansetron HCl (Zofran Inj*) 4 mg IV Q4H PRN Polyvinyl Alcohol (Polyvinyl Alcohol 1.4% Opth*) 1 drop BOTH EYES DAILY KALIE Vital Signs 05/16/17 05/16/17 05/16/17 11:24 15:30 19:50 Temperature 98.6 F 98.4 F Pulse Rate 80 78 75 Respiratory 20 18 17 Rate Blood Pressure 139/72 152/75 144/70 (mmHg) O2 Sat by Pulse 87 96 97 Oximetry 05/16/17 05/16/17 05/17/17 20:00 23:41 03:28 Temperature 98.8 F Pulse Rate 90 80 Respiratory 17 22 24 Rate Blood Pressure 154/77 129/54 (mmHg) O2 Sat by Pulse 96 94 Oximetry Oxygen Devices in Use Now: None Appearance: Elderly, AAF, laying in bed in NAD Eyes: No Scleral Icterus Ears/Nose/Mouth/Throat: - - Dry MM Neck: NL Appearance and Movements; NL JVP Respiratory: Symmetrical Chest Expansion and Respiratory Effort, Clear to Auscultation Cardiovascular: NL Sounds; No Murmurs; No JVD Abdominal: NL Sounds; No Tenderness; No Distention Lymphatic: No Cervical Adenopathy Extremities: No Edema Skin: No Rash or Ulcers Neurological: - - Alert, oriented to self only, thought 1970, could not tell me hospital, but more alert Result Diagrams: 05/15/17 04:25 05/17/17 04:36 Assess/Plan/Problems-Billing Assessment: Hypercalcemia, UTI, JEISON, hypernatremia and mild troponin elevation in an 86 yo F with hx of LBBB, glaucoma, cataracts, central retinal vein occlusion - Patient Problems (1) UTI (urinary tract infection) Current Visit: Yes Comment: UCx growing schumacher-sensitive E coli. Continue Ancef, Day 4 of ABx (2) Hypercalcemia Current Visit: Yes Comment: Improved. PTH low normal, 25-Vitamin D low. SPEP/ UPEP, PTHrP, 1-25 Vit D pending. Received Zometa in ED. Stopped calcitonin, will stop IVF. Was on Ca supplements at home which are being held. (3) Hypernatremia Current Visit: Yes Comment: Resolved, will stop IVF and monitor intake. (4) Troponin level elevated Current Visit: Yes Comment: Peaked at 0.06, no concerning events on tele, no chest pain. Likely demand-mediated. (5) Abnormal TSH Current Visit: Yes Comment: Repeat of TFTs 05/17 show low normal TSH, decreased FT4 and FT3. Dr. Wisdom recommended additional thyroid testing to evaluate for Graves, Hashimotos, unremarkable so far. Can get thyroid US as outpatient. (6) Hypokalemia Current Visit: Yes Comment: Resolved (7) DVT prophylaxis Current Visit: Yes Comment: HSQ Status and Disposition: Inpatient, will get PT eval
[2017-05-17] MEDS: Ascorbic Acid TAB* 500 MG PO SCH (09:39)
[2017-05-17] MEDS: Aspirin Low Dose CHEW TAB* 81 MG PO SCH (09:40)
[2017-05-17] MEDS: OLOPATADINE 0.7% BOTH EYES SCH (09:54)
[2017-05-17] MEDS: Artificial Tears* 15 ML BTL BOTH EYES SCH (09:54)
[2017-05-17] MEDS: Ondansetron INJ* 2 MG/ML VIAL IV PRN ×2 (09:54→14:20)
[2017-05-17 11:01] LABS: Thyroglobulin Antibody <1.8 IU/mL (<4.0)
[2017-05-17] MEDS: Potassium Chloride IV* 40 MEQ in D5W 1000 ML BAG* 1,000 ML IVPB SCH ×2 (11:17→20:55)
[2017-05-17 11:32] LABS: Albumin 3.1 g/dL (3.4-4.7); Gamma Globulin 3.8 g/dL (0.6-1.6); Total Protein(PEP) 8.9 g/dL (6.3 - 7.9)
[2017-05-17 13:27] LABS: Magnesium 1.3 mg/dL (1.9-2.7)
[2017-05-17] MEDS ORDERED: Magnesium Sulfate 2 GM IV* 2 GM/50 ML BAG IVPB ONE (16:18)
[2017-05-17 20:22] LABS: Thyrotropin Receptor Antibody <1.00 IU/L
[2017-05-17] MEDS: Latanoprost 0.005%* 2.5 ml BTL BOTH EYES SCH (20:58)
[2017-05-18] MEDS: ceFAZolin 1 GM VIAL(*) 1 GM in NS 0.9% 50 ML* 50 ML IVPB SCH ×3 (02:11→18:14)
[2017-05-18] MEDS: Heparin VIAL(*) 5000 UNITS/ML VIAL (FIVE THOUSAND) SUBCUT SCH ×3 (04:39→21:16)
[2017-05-18] MEDS ORDERED: Magnesium Sulfate 2 GM IV* 2 GM/50 ML BAG IVPB ONE (07:37)
[2017-05-18] MEDS: Ascorbic Acid TAB* 500 MG PO SCH (08:42)
[2017-05-18] MEDS: Magnesium Oxide TAB* 400 MG PO SCH (08:42)
[2017-05-18] MEDS: Artificial Tears* 15 ML BTL BOTH EYES SCH (08:42)
[2017-05-18] MEDS: OLOPATADINE 0.7% BOTH EYES SCH (08:42)
[2017-05-18] MEDS: Aspirin Low Dose CHEW TAB* 81 MG PO SCH (08:42)
[2017-05-18] MEDS: Potassium Chloride IV* 40 MEQ in D5W 1000 ML BAG* 1,000 ML IVPB SCH ×2 (11:02→22:48)
--- NOTE | 2017-05-18 14:06 | PN ---
Subjective Date of Service: 05/18/17 Interval History: Patient seen this morning. A bit more lethargic than yesterday, denies complaints. Son present, also feels she was a bit better yesterday. Family History: Unchanged from Admission Social History: Unchanged from Admission Past Medical History: Unchanged from Admission Objective Active Medications: Acetaminophen (Tylenol Adult Liq*) 650 mg PO Q4H PRN Ascorbic Acid (Vitamin C Tab*) 1,000 mg PO DAILY KALIE Aspirin (Aspirin Low Dose Tab*) 81 mg PO DAILY KALIE Heparin Sodium (Porcine) (Heparin Vial(*)) 5,000 units SUBCUT Q8HR KALIE Cefazolin Sodium 1 gm/ Sodium (Chloride) 50 mls @ 200 mls/hr IVPB Q8H KALIE Potassium Chloride 40 meq/ (Dextrose) 1,020 mls @ 102 mls/hr IVPB Q10H KALIE Latanoprost (Xalatan 0.005%*) 1 drop BOTH EYES BEDTIME KALIE Magnesium Oxide (Magox 400 Tab*) 400 mg PO DAILY KALIE Pto [place] 0.7% (Ophthalamic Drips) 1 drop BOTH EYES QAM KALIE Ondansetron HCl (Zofran Inj*) 4 mg IV Q4H PRN Polyvinyl Alcohol (Polyvinyl Alcohol 1.4% Opth*) 1 drop BOTH EYES DAILY KALIE Vital Signs 05/17/17 05/17/17 05/17/17 15:39 20:00 23:23 Temperature 97.9 F 99.6 F Pulse Rate 79 111 Respiratory 16 16 20 Rate Blood Pressure 134/70 140/64 (mmHg) O2 Sat by Pulse 95 96 Oximetry 05/18/17 05/18/17 05/18/17 03:23 06:29 08:10 Temperature 98.8 F 98.1 F Pulse Rate 116 89 Respiratory 20 20 20 Rate Blood Pressure 157/73 131/54 (mmHg) O2 Sat by Pulse 91 94 Oximetry Oxygen Devices in Use Now: None Appearance: Elderly, AAF, laying in chair in NAD Eyes: No Scleral Icterus Ears/Nose/Mouth/Throat: - - Dry MM Neck: NL Appearance and Movements; NL JVP Respiratory: Symmetrical Chest Expansion and Respiratory Effort, Clear to Auscultation Cardiovascular: NL Sounds; No Murmurs; No JVD, RRR Abdominal: NL Sounds; No Tenderness; No Distention Lymphatic: No Cervical Adenopathy Extremities: No Edema Skin: No Rash or Ulcers Neurological: - - Lethargic but responsive, no focal deficits Result Diagrams: 05/15/17 04:25 05/17/17 04:36 Additional Lab and Data: Lab Results 05/14/17 05/14/17 05/14/17 Range/Units 12:25 12:25 12:25 WBC 12.2 H (3.5-10.8) 10^3/ul RBC 3.27 L (4.0-5.4) 10^6/ul Hgb 9.8 L (12.0-16.0) g/dl Hct 30 L (35-47) % MCV 92 (80-97) fL MCH 30 (27-31) pg MCHC 32 (31-36) g/dl RDW 14 (10.5-15) % Plt Count 95 L (150-450) 10^3/ul MPV 12 H (7.4-10.4) um3 Neut % (Auto) 68.2 (38-83) % Lymph % (Auto) 21.0 L (25-47) % [place] % (Auto) 8.6 (1-9) % Eos % (Auto) 1.3 (0-6) % Baso % (Auto) 0.9 (0-2) % Absolute Neuts (auto) 8.3 H (1.5-7.7) 10^3/ul Absolute Lymphs (auto) 2.6 (1.0-4.8) 10^3/ul Absolute Monos (auto) 1.1 H (0-0.8) 10^3/ul Absolute Eos (auto) 0.2 (0-0.6) 10^3/ul Absolute Basos (auto) 0.1 (0-0.2) 10^3/ul Absolute Nucleated RBC 0.02 10^3/ul Nucleated RBC % 0.2 Platelet Morphology Large Normal RBC Morphology Not Reportable Hem Pathologist Commnt Sodium Cancelled Potassium Cancelled Chloride Cancelled Carbon Dioxide Cancelled Anion Gap Cancelled BUN Cancelled Creatinine Cancelled Est GFR ( Amer) Cancelled Est GFR (Non-Af Amer) Cancelled BUN/Creatinine Ratio Cancelled Glucose Cancelled Lactic Acid (0.5-2.0) mmol/L Calcium Cancelled Magnesium Cancelled Total Bilirubin Cancelled AST Cancelled ALT Cancelled Alkaline Phosphatase Cancelled Total Creatine Kinase Cancelled Troponin I 0.04 H* (<0.04) ng/mL C-Reactive Protein Cancelled B-Natriuretic Peptide 430 H ( - 100) pg/mL Total Protein Cancelled Albumin Cancelled Globulin Cancelled Albumin/Globulin Ratio Cancelled TSH 0.04 L (0.34-5.60) mcIU/mL Free T4 (0.61-1.12) ng/dL Free T3 (2.5-3.9) pg/mL Urine Color Urine Appearance Urine pH (5-9) Ur Specific [place] (1.010-1.030) Urine Protein (Negative) Urine Ketones (Negative) Urine Blood (Negative) Urine Nitrate (Negative) Urine Bilirubin (Negative) Urine Urobilinogen (Negative) Ur Leukocyte Esterase (Negative) Urine WBC (Auto) (Absent) Urine RBC (Auto) (Absent) Ur Squamous Epith Cells (Absent) Urine Bacteria (Absent) Hyaline Casts (Absent) Urine Glucose (Negative) Urine Ascorbic Acid (Negative) 05/14/17 05/14/17 05/14/17 Range/Units 12:36 13:50 14:45 WBC (3.5-10.8) 10^3/ul RBC (4.0-5.4) 10^6/ul Hgb (12.0-16.0) g/dl Hct (35-47) % MCV (80-97) fL MCH (27-31) pg MCHC (31-36) g/dl RDW (10.5-15) % Plt Count (150-450) 10^3/ul MPV (7.4-10.4) um3 Neut % (Auto) (38-83) % Lymph % (Auto) (25-47) % [place] % (Auto) (1-9) % Eos % (Auto) (0-6) % Baso % (Auto) (0-2) % Absolute Neuts (auto) (1.5-7.7) 10^3/ul Absolute Lymphs (auto) (1.0-4.8) 10^3/ul Absolute Monos (auto) (0-0.8) 10^3/ul Absolute Eos (auto) (0-0.6) 10^3/ul Absolute Basos (auto) (0-0.2) 10^3/ul Absolute Nucleated RBC 10^3/ul Nucleated RBC % Platelet Morphology Normal RBC Morphology Hem Pathologist Commnt Sodium 149 H Potassium 2.9 L Chloride 110 Carbon Dioxide 31 Anion Gap 8 BUN 18 Creatinine 1.33 H Est GFR ( Amer) 48.5 Est GFR (Non-Af Amer) 37.7 BUN/Creatinine Ratio 13.5 Glucose 95 Lactic Acid 0.5 (0.5-2.0) mmol/L Calcium 13.9 H* Magnesium 2.1 Total Bilirubin 0.50 AST 16 ALT 9 Alkaline Phosphatase 54 Total Creatine Kinase 25 Troponin I (<0.04) ng/mL C-Reactive Protein 3.95 B-Natriuretic Peptide ( - 100) pg/mL Total Protein 8.3 Albumin 2.8 L Globulin 5.5 H Albumin/Globulin Ratio 0.5 L TSH (0.34-5.60) mcIU/mL Free T4 2.15 H (0.61-1.12) ng/dL Free T3 3.90 (2.5-3.9) pg/mL Urine Color Yellow Urine Appearance Cloudy Urine pH 6.0 (5-9) Ur Specific [place] 1.009 L (1.010-1.030) Urine Protein Negative (Negative) Urine Ketones Negative (Negative) Urine Blood Negative (Negative) Urine Nitrate Positive H (Negative) Urine Bilirubin Negative (Negative) Urine Urobilinogen Negative (Negative) Ur Leukocyte Esterase 3+ H (Negative) Urine WBC (Auto) 3+(>20/hpf) H (Absent) Urine RBC (Auto) Absent (Absent) Ur Squamous Epith Cells Present H (Absent) Urine Bacteria 2+ H (Absent) Hyaline Casts Present H (Absent) Urine Glucose Negative (Negative) Urine Ascorbic Acid * H (Negative) Assess/Plan/Problems-Billing Assessment: Hypercalcemia, UTI, JEISON, hypernatremia and mild troponin elevation in an 86 yo F with hx of LBBB, glaucoma, cataracts, central retinal vein occlusion - Patient Problems (1) UTI (urinary tract infection) Current Visit: Yes Comment: UCx growing schumacher-sensitive E coli. Continue Ancef, Day 5 of ABx (2) Hypercalcemia Current Visit: Yes Comment: Improved. SPEP with M-spike, concerning for multiple myeloma. Will order serum light chains and skeletal survery. Spoke to Dr. Lucia who will evaluate the patient, plan for bone marrow bx (3) Hypernatremia Current Visit: Yes Comment: Resolved (4) Troponin level elevated Current Visit: Yes Comment: Peaked at 0.06, no concerning events on tele, no chest pain. Likely demand-mediated. (5) Abnormal TSH Current Visit: Yes Comment: Repeat of TFTs 05/17 show low normal TSH, decreased FT4 and FT3. Dr. Wisdom recommended additional thyroid testing to evaluate for Graves, Hashimotos, unremarkable so far. Can get thyroid US as outpatient. (6) Hypokalemia Current Visit: Yes Comment: Resolved (7) DVT prophylaxis Current Visit: Yes Comment: HSQ Status and Disposition: Inpatient, pending further MM work-up
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
[2017-05-18] MEDS: Latanoprost 0.005%* 2.5 ml BTL BOTH EYES SCH (21:16)
[2017-05-19] MEDS: ceFAZolin 1 GM VIAL(*) 1 GM in NS 0.9% 50 ML* 50 ML IVPB SCH (03:23)
[2017-05-19] MEDS: Heparin VIAL(*) 5000 UNITS/ML VIAL (FIVE THOUSAND) SUBCUT SCH ×3 (05:36→21:28)
[2017-05-19] MEDS: Potassium Chloride IV* 40 MEQ in D5W 1000 ML BAG* 1,000 ML IVPB SCH (07:57)
[2017-05-19 08:26] LABS: Hematocrit 26 % (35-47); Hemoglobin 8.3 g/dl (12.0-16.0); Mean Corpuscular HGB Conc 32 g/dl (31-36); Mean Corpuscular Hemoglobin 29 pg (27-31); Mean Corpuscular Volume 91 fL (80-97); Mean Platelet Volume 14 um3 (7.4-10.4); Red Blood Count 2.82 10^6/ul (4.0-5.4); Red Cell Distribution Width 15 % (10.5-15); White Blood Count 14.8 10^3/ul (3.5-10.8)
[2017-05-19 08:30] LABS: BUN/Creatinine Ratio 10.1 (8-20); EGFR African American 77.2 (>60); Potassium 4.4 mmol/L (3.5-5.0)
[2017-05-19 08:48] LABS: Add Diff/Slide Review? Slide Review Added; Comments Flag Yes
[2017-05-19] MEDS: Magnesium Oxide TAB* 400 MG PO SCH (09:23)
[2017-05-19] MEDS: Artificial Tears* 15 ML BTL BOTH EYES SCH (09:23)
[2017-05-19] MEDS: OLOPATADINE 0.7% BOTH EYES SCH (09:23)
[2017-05-19] MEDS: Aspirin Low Dose CHEW TAB* 81 MG PO SCH (09:23)
[2017-05-19] MEDS: Ascorbic Acid TAB* 500 MG PO SCH (09:23)
[2017-05-19 10:04] LABS: Magnesium 1.8 mg/dL (1.9-2.7)
--- NOTE | 2017-05-19 11:02 | PN ---
Subjective Date of Service: 05/19/17 Interval History: Patient seen this morning. Son reports she had a restless night. As per nursing , so far this morning she has been much more alert and conversant which son agrees with, currently she is sleeping and lethargic. Denies any pain. Family History: Unchanged from Admission Social History: Unchanged from Admission Past Medical History: Unchanged from Admission Objective Active Medications: Acetaminophen (Tylenol Adult Liq*) 650 mg PO Q4H PRN Ascorbic Acid (Vitamin C Tab*) 1,000 mg PO DAILY [facility] Aspirin (Aspirin Low Dose Tab*) 81 mg PO DAILY [facility] Heparin Sodium (Porcine) (Heparin Vial(*)) 5,000 units SUBCUT Q8HR [facility] Latanoprost (Xalatan 0.005%*) 1 drop BOTH EYES BEDTIME [facility] Magnesium Oxide (Magox 400 Tab*) 400 mg PO DAILY [facility] Pto Pazeo 0.7% (Ophthalamic Drips) 1 drop BOTH EYES QAM [facility] Ondansetron HCl (Zofran Inj*) 4 mg IV Q4H PRN Polyvinyl Alcohol (Polyvinyl Alcohol 1.4% Opth*) 1 drop BOTH EYES DAILY [facility] Vital Signs 05/18/17 05/19/17 05/19/17 19:23 00:17 03:42 Temperature 98.9 F 99.1 F 99.1 F Pulse Rate 82 90 89 Respiratory 16 16 32 Rate Blood Pressure 126/54 126/61 118/59 (mmHg) O2 Sat by Pulse 97 97 96 Oximetry 05/19/17 05/19/17 06:17 07:39 Temperature 98.2 F Pulse Rate 89 Respiratory 16 22 Rate Blood Pressure 117/58 (mmHg) O2 Sat by Pulse 97 Oximetry Oxygen Devices in Use Now: None Appearance: Elderly, F, laying in bed in NAD, asleep Eyes: No Scleral Icterus Ears/Nose/Mouth/Throat: - - Dry MM Neck: NL Appearance and Movements; NL JVP Respiratory: Symmetrical Chest Expansion and Respiratory Effort, Clear to Auscultation - in anterior and lateral wood Cardiovascular: NL Sounds; No Murmurs; No JVD, RRR Abdominal: NL Sounds; No Tenderness; No Distention Lymphatic: No Cervical Adenopathy Extremities: No Edema Skin: No Rash or Ulcers Neurological: - - Lethargic, opens eyes to voice, shakes head in response to questions, moving LEs slightly but not completely following commands Result Diagrams: 05/19/17 04:51 05/19/17 04:51 Assess/Plan/Problems-Billing Assessment: Hypercalcemia, UTI, JEISON, hypernatremia and mild troponin elevation in an 86 yo F with hx of LBBB, glaucoma, cataracts, central retinal vein occlusion - Patient Problems (1) UTI (urinary tract infection) Current Visit: Yes Comment: UCx growing schumacher-sensitive E coli. Completed ABx therapy. (2) Hypercalcemia Current Visit: Yes Comment: Improved. SPEP with M-spike, concerning for multiple myeloma. Appreciate Dr. Lucia's assistance. Additional tests ordered, skeletal survey done today. Ammonia added on as well. Plan for BMBx on 05/20. (3) Hypernatremia Current Visit: Yes Comment: Resolved (4) Troponin level elevated Current Visit: Yes Comment: Peaked at 0.06, no concerning events on tele, no chest pain. Likely demand-mediated. (5) Abnormal TSH Current Visit: Yes Comment: Repeat of TFTs 05/17 show low normal TSH, decreased FT4 and FT3. Dr. Wisdom recommended additional thyroid testing to evaluate for Graves, Hashimotos, unremarkable so far. Can get thyroid US as outpatient. (6) Hypokalemia Current Visit: Yes Comment: Resolved (7) DVT prophylaxis Current Visit: Yes Comment: HSQ Status and Disposition: Inpatient, pending further MM work-up
--- NOTE | 2017-05-19 11:26 | RAD ---
Indication: Multiple myeloma. Single view of the chest demonstrates mild interstitial edema. I cannot exclude consolidation of the right lung base. 2 views of the cervical spine demonstrates degenerative disc disease at C5-C6 and C6-C7. Spinal canal appears to be intact. No obvious lytic lesions are noted. 2 views of the skull demonstrates small punctate areas of lytic lesions. Underlying myeloma is not excluded. CT demonstrates multiple lucent lesions in the diploic space. 2 views of the ribs demonstrates osteopenia of the wrist. No obvious lytic lesions are noted although sensitivity limited due to osteopenia. Single view of the right humerus demonstrates no obvious lytic lesions. Single view of the left humerus demonstrates no obvious lytic lesions. 2 views of the thoracic spine are extremely limited due to diffuse osteopenia and pleural effusion. AP view of the lumbar spine demonstrates no evidence of lytic lesions. There is mild compression of L3 age of which is undetermined. Single view of the right femur demonstrates suggestion of small lytic lesions throughout the shaft of the right femur. A single view of the left femur demonstrates suggestion of small lytic lesions throughout the left femur. Single view of the right tibia and fibula demonstrates osteopenia without fracture. A single view of the left tibia and fibula also demonstrates no lytic lesions. A single view of the right forearm demonstrates no obvious lytic lesions. A single view of the left forearm demonstrates no obvious lytic lesions. IMPRESSION: There are multiple tiny lytic lesions present most prominent in the calvaria and the femoral shafts bilaterally. The spine and ribs are difficult to evaluate due to osteopenia although there is compression of the L3 vertebra. Lung wood demonstrate probable right pleural effusion.
[2017-05-19] MEDS: Acetaminophen ADULT LIQ* 650 MG/20.3 ML UDC PO PRN (12:54)
[2017-05-19] MEDS: Latanoprost 0.005%* 2.5 ml BTL BOTH EYES SCH (20:43)
[2017-05-20] MEDS: Heparin VIAL(*) 5000 UNITS/ML VIAL (FIVE THOUSAND) SUBCUT SCH ×3 (05:31→21:34)
[2017-05-20 09:43] LABS: Vitamin D 1,25-Dihydroxy <8.0 pg/mL (18-78)
--- NOTE | 2017-05-20 09:52 | PN ---
Subjective Date of Service: 05/20/17 Interval History: Patient seen this morning. Much more alert, responsive. Said she had some shoulder pain this morning that has resolved. Explained plans for BMBx today. Family History: Unchanged from Admission Social History: Unchanged from Admission Past Medical History: Unchanged from Admission Objective Active Medications: Acetaminophen (Tylenol Adult Liq*) 650 mg PO Q4H PRN PRN Reason: FEVER/PAIN Last Admin: 05/19/17 12:54 Dose: 650 mg Ascorbic Acid (Vitamin C Tab*) 1,000 mg PO DAILY [facility] Last Admin: 05/19/17 09:23 Dose: 1,000 mg Aspirin (Aspirin Low Dose Tab*) 81 mg PO DAILY [facility] Last Admin: 05/19/17 09:23 Dose: 81 mg Heparin Sodium (Porcine) (Heparin Vial(*)) 5,000 units SUBCUT Q8HR [facility] Last Admin: 05/20/17 05:31 Dose: 5,000 units Latanoprost (Xalatan 0.005%*) 1 drop BOTH EYES BEDTIME [facility] Last Admin: 05/19/17 20:43 Dose: 1 drop Magnesium Oxide (Magox 400 Tab*) 400 mg PO DAILY [facility] Last Admin: 05/19/17 09:23 Dose: 400 mg Pto Pazeo 0.7% (Ophthalamic Drips) 1 drop BOTH EYES QAM [facility] Last Admin: 05/19/17 09:23 Dose: 1 drop Ondansetron HCl (Zofran Inj*) 4 mg IV Q4H PRN PRN Reason: NAUSEA/VOMITING Last Admin: 05/17/17 14:20 Dose: 4 mg Polyvinyl Alcohol (Polyvinyl Alcohol 1.4% Opth*) 1 drop BOTH EYES DAILY [facility] Last Admin: 05/19/17 09:23 Dose: 1 drop Vital Signs 05/19/17 05/19/17 05/19/17 11:55 16:18 19:33 Temperature 97.5 F 98.4 F 98.2 F Pulse Rate 85 93 97 Respiratory 24 20 17 Rate Blood Pressure 115/49 120/48 130/56 (mmHg) O2 Sat by Pulse 99 98 100 Oximetry 05/19/17 05/19/17 05/19/17 20:00 20:16 23:36 Temperature 97.2 F 98.2 F Pulse Rate 97 99 Respiratory 17 24 20 Rate Blood Pressure 121/61 139/61 (mmHg) O2 Sat by Pulse 97 100 Oximetry 05/20/17 05/20/17 03:41 07:18 Temperature 98.1 F 98.8 F Pulse Rate 111 112 Respiratory 16 18 Rate Blood Pressure 145/65 146/64 (mmHg) O2 Sat by Pulse 99 97 Oximetry Oxygen Devices in Use Now: None Appearance: Elderly, AAF, sitting in chair in NAD Eyes: No Scleral Icterus Ears/Nose/Mouth/Throat: Mucous Membranes Moist Neck: NL Appearance and Movements; NL JVP Respiratory: Symmetrical Chest Expansion and Respiratory Effort, Clear to Auscultation Cardiovascular: NL Sounds; No Murmurs; No JVD, RRR Abdominal: NL Sounds; No Tenderness; No Distention Lymphatic: No Cervical Adenopathy Extremities: No Edema Skin: No Rash or Ulcers Neurological: - - Alert, oriented, no focal deficits Result Diagrams: 05/19/17 04:51 05/19/17 04:51 Assess/Plan/Problems-Billing Assessment: Hypercalcemia, UTI, JEISON, hypernatremia and mild troponin elevation in an 86 yo F with hx of LBBB, glaucoma, cataracts, central retinal vein occlusion - Patient Problems (1) UTI (urinary tract infection) Current Visit: Yes Comment: UCx growing schumacher-sensitive E coli. Completed ABx therapy. (2) Hypercalcemia Current Visit: Yes Comment: Improved. SPEP with M-spike, concerning for multiple myeloma. Appreciate Dr. Lucia's assistance. Additional tests ordered and pending, skeletal survey shows multiple lytic lesions most prominent in calvaria and femoral shafts. Ammonia minimally elevated, doubt contributing to intermittent lethargy. Plan for BMBx today. (3) Hypernatremia Current Visit: Yes Comment: Resolved (4) Troponin level elevated Current Visit: Yes Comment: Peaked at 0.06, no concerning events on tele, no chest pain. Likely demand-mediated. (5) Abnormal TSH Current Visit: Yes Comment: Repeat of TFTs 05/17 show low normal TSH, decreased FT4 and FT3. Dr. Wisdom recommended additional thyroid testing to evaluate for Graves, Hashimotos, unremarkable so far. Can get thyroid US as outpatient. (6) Hypokalemia Current Visit: Yes Comment: Resolved (7) DVT prophylaxis Current Visit: Yes Comment: HSQ Status and Disposition: Inpatient, pending further MM work-up
[2017-05-20] MEDS ORDERED: Lidocaine 2% PF * 5 ML VIAL INJ ONE (11:00)
[2017-05-20] MEDS: Magnesium Oxide TAB* 400 MG PO SCH (11:22)
[2017-05-20] MEDS: Ascorbic Acid TAB* 500 MG PO SCH (11:22)
[2017-05-20] MEDS: Aspirin Low Dose CHEW TAB* 81 MG PO SCH (11:22)
[2017-05-20] MEDS: Artificial Tears* 15 ML BTL BOTH EYES SCH (11:23)
[2017-05-20] MEDS: OLOPATADINE 0.7% BOTH EYES SCH (11:23)
[2017-05-20] MEDS: Latanoprost 0.005%* 2.5 ml BTL BOTH EYES SCH (20:49)
[2017-05-21] MEDS: Heparin VIAL(*) 5000 UNITS/ML VIAL (FIVE THOUSAND) SUBCUT SCH ×3 (05:31→21:38)
[2017-05-21 07:08] LABS: Add Diff/Slide Review? Manual Diff Added; Comments Flag Yes; Hematocrit 26 % (35-47); Hemoglobin 8.8 g/dl (12.0-16.0); Mean Corpuscular HGB Conc 33 g/dl (31-36); Mean Corpuscular Hemoglobin 30 pg (27-31); Mean Corpuscular Volume 90 fL (80-97); Mean Platelet Volume 12 um3 (7.4-10.4); Red Blood Count 2.95 10^6/ul (4.0-5.4); Red Cell Distribution Width 15 % (10.5-15); White Blood Count 14.5 10^3/ul (3.5-10.8)
[2017-05-21 07:31] LABS: Eosinophils % 2 % (0-6); Immature Granulocytes 5 % (0-9); Metamyelocytes % 2 % (0-2); Myelocytes % 1 % (0-1); Neutrophil % 56 % (38-83); Reactive Lymph % 10 % (0-6)
[2017-05-21 07:34] LABS: Add Path Review? YES; Hypochromasia 1+
[2017-05-21 07:55] LABS: BUN/Creatinine Ratio 12.2 (8-20); Calcium 7.6 mg/dL (8.6-10.3); EGFR African American 95.5 (>60); EGFR Non-African American 74.2 (>60); Magnesium 1.8 mg/dL (1.9-2.7); Potassium 3.8 mmol/L (3.5-5.0)
[2017-05-21] MEDS: Artificial Tears* 15 ML BTL BOTH EYES SCH (08:40)
[2017-05-21] MEDS: OLOPATADINE 0.7% BOTH EYES SCH (08:40)
[2017-05-21] MEDS: Aspirin Low Dose CHEW TAB* 81 MG PO SCH (08:41)
[2017-05-21] MEDS: Magnesium Oxide TAB* 400 MG PO SCH (08:41)
[2017-05-21] MEDS: Ascorbic Acid TAB* 500 MG PO SCH (08:41)
[2017-05-21] MEDS ORDERED: Magnesium Sulfate 2 GM IV* 2 GM/50 ML BAG IVPB ONE (09:17)
[2017-05-21 12:04] LABS: Kappa Free Light Chain 0.797 mg/dL; Kappa/Lambda Free Light Chain 0.1791
[2017-05-21 12:28] LABS: Beta 2 Microglobulin 8.66 mcg/mL
[2017-05-21 12:59] LABS: Immunoglobulin A 2730 mg/dL (61 - 356); Immunoglobulin G 517 mg/dL (767 - 1590); Immunoglobulin M <5 mg/dL (37 - 286)
--- NOTE | 2017-05-21 14:01 | PN ---
Subjective Date of Service: 05/21/17 Interval History: HOSPITALIST PROGRESS NOTE Patient seen and examined at bedside. As per son, she's more awake today. She opened her eyes and answered some yes/ no questions. Denies pain, feels tired, has poor appetite, but willing to try breakfast. Family History: Unchanged from Admission Social History: Unchanged from Admission Past Medical History: Unchanged from Admission Objective Active Medications: Acetaminophen (Tylenol Adult Liq*) 650 mg PO Q4H PRN PRN Reason: FEVER/PAIN Last Admin: 05/19/17 12:54 Dose: 650 mg Ascorbic Acid (Vitamin C Tab*) 1,000 mg PO DAILY [facility] Last Admin: 05/21/17 08:41 Dose: 1,000 mg Aspirin (Aspirin Low Dose Tab*) 81 mg PO DAILY [facility] Last Admin: 05/21/17 08:41 Dose: 81 mg Heparin Sodium (Porcine) (Heparin Vial(*)) 5,000 units SUBCUT Q8HR [facility] Last Admin: 05/21/17 05:31 Dose: 5,000 units Latanoprost (Xalatan 0.005%*) 1 drop BOTH EYES BEDTIME [facility] Last Admin: 05/20/17 20:49 Dose: 1 drop Magnesium Oxide (Magox 400 Tab*) 400 mg PO DAILY [facility] Last Admin: 05/21/17 08:41 Dose: 400 mg Pto Pazeo 0.7% (Ophthalamic Drips) 1 drop BOTH EYES QAM [facility] Last Admin: 05/21/17 08:40 Dose: 1 drop Ondansetron HCl (Zofran Inj*) 4 mg IV Q4H PRN PRN Reason: NAUSEA/VOMITING Last Admin: 05/17/17 14:20 Dose: 4 mg Polyvinyl Alcohol (Polyvinyl Alcohol 1.4% Opth*) 1 drop BOTH EYES DAILY [facility] Last Admin: 05/21/17 08:40 Dose: 1 drop Vital Signs 05/20/17 05/21/17 05/21/17 23:59 04:02 07:38 Temperature 98.1 F 98.7 F 98.2 F Pulse Rate 107 103 96 Respiratory 16 16 22 Rate Blood Pressure 146/62 142/85 133/66 (mmHg) O2 Sat by Pulse 99 100 97 Oximetry 05/21/17 05/21/17 11:14 11:20 Temperature 98.7 F Pulse Rate 89 85 Respiratory 20 Rate Blood Pressure 87/44 102/55 (mmHg) O2 Sat by Pulse 100 Oximetry Oxygen Devices in Use Now: None Appearance: Elderly lady lying in bed in NAD. Eyes: No Scleral Icterus Ears/Nose/Mouth/Throat: Mucous Membranes Moist Neck: Trachea Midline Respiratory: Symmetrical Chest Expansion and Respiratory Effort, Clear to Auscultation Cardiovascular: RRR - Normal S1 and S2 Abdominal: NL Sounds; No Tenderness; No Distention Neurological: - - lethargic, but arousable to voice, moves all 4 ext., Ox3 Lines/Tubes/Other Access: Clean, Dry and Intact Peripheral IV Result Diagrams: 05/21/17 05:46 05/21/17 05:46 Assess/Plan/Problems-Billing Assessment: Hypercalcemia, UTI, JEISON, hypernatremia and mild troponin elevation in an 86 yo F with hx of LBBB, glaucoma, cataracts, central retinal vein occlusion - Patient Problems (1) UTI (urinary tract infection) Comment: - Urine culture grew schumacher-sensitive E coli - completed antibiotic therapy. (2) Hypercalcemia Comment: - Resolved, likely secondary to multiple myeloma. - SPEP with M-spike, skeletal survey shows multiple lytic lesions most prominent in calvarium and femoral shafts, concerning for multiple myeloma. - Awaiting BM result - d/w Dr. Lucia - if MM confirmed, plan for high dose steroids. (3) Abnormal TSH Comment: - Repeat of TFTs 05/17 show low normal TSH, decreased FT4 and FT3. Dr. Wisdom recommended additional thyroid testing to evaluate for Graves, Hashimotos, unremarkable so far. Can get thyroid US as outpatient. (4) Hypernatremia Comment: - Resolved. (5) Hypokalemia Comment: - Resolved. (6) Troponin level elevated Comment: - Peaked at 0.06, LBBB on EKG, no concerning events on tele, no chest pain. Likely demand ischemia. - Check echocardiogram. (7) DVT prophylaxis Comment: - SQ heparin. (8) Full code status Comment: - Son wants to talk to Dr. Lucia first before talking about DNR. Status and Disposition: Inpatient, pending further MM work-up results.
[2017-05-21 14:24] LABS: PTH Related Peptide 0.5 pmol/L (<2.0)
[2017-05-21] MEDS ORDERED: Perflutren Lipid Microsphere* 3 ML VIAL ONE (15:23)
--- NOTE | 2017-05-21 16:43 | ECHO ---
Patient: RACHEL PICKARD [facility] Rec#: [id number] : 1930 Date: 05/21/2017 Age: 86y Height: 165.1 cm / 65.0 in Weight: 57.15 kg / 126.0 lbs Sex: F BSA: 1.63 Room#: 417 Admit Date#: 05/14/2017 Type: Inpatient Referring: Juliann Alexander MD Reading: Piyush Franco MD [employer] Supervisor: Pinky Molina,RDCS,RDMS CC: NOEMI MEJIA INLAYER Transthoracic Echocardiogram Indication: Murmur, elevated TROP BP: 102/55 HR: 97 Rhythm: NSR Findings History: UTI. LBBB, former smoker Technical Comments: The study quality is fair. Left Ventricle: The left ventricular chamber size is normal. Mild concentric left ventricular hypertrophy is observed. Basal septal hypertrophy and systolic anterior motion of the mitral valve are observed creating an outflow tract gradient. The systolic anterior motion appears to be choardal in nature. The left ventricle appears hyperdynamic. The estimated ejection fraction is greater than 65%. There is a left ventricular septal wall motion abnormality observed, possibly due to the presence of a left bundle branch block. Abnormal left ventricular diastolic filling is observed, consistent with impaired relaxation. Left Atrium: The left atrium is moderately dilated. Right Ventricle: The right ventricular cavity size is normal. The right ventricular global systolic function is hyperdynamic. Right Atrium: The right atrial cavity size is normal. Aortic Valve: The aortic valve is trileaflet. There is no evidence of aortic valve thickening. Systolic excursion of the aortic valve is normal. There is aortic annular calcification. There is no evidence of aortic regurgitation. There is no evidence of aortic stenosis. Mitral Valve: The mitral valve leaflets appear normal. There is mitral annular calcification. There is mild to moderate mitral regurgitation. There is no evidence of mitral stenosis. Tricuspid Valve: The tricuspid valve leaflets are normal. There is trace tricuspid regurgitation. There is evidence of borderline pulmonary hypertension. Pulmonic Valve: The pulmonic valve appears normal. There is a trace pulmonic regurgitation. Pericardium: A trivial pericardial effusion is visualized. Aorta: The aortic root appears normal. There is no dilatation of the aortic arch. Pulmonary Artery: The main pulmonary artery appears normal. Venous: The inferior vena cava appears normal in size. There is an approximate 50% respiratory change in the inferior vena cava dimension. Contrast: Definity was used to optimize study. A total of 4 ml was used Conclusions Mild concentric left ventricular hypertrophy is observed. Basal septal hypertrophy and systolic anterior motion of the mitral valve chordal apparatus are observed creating an outflow tract gradient. There is a left ventricular septal wall motion abnormality observed, possibly due to the presence of a left bundle branch block. Abnormal left ventricular diastolic filling is observed, consistent with impaired relaxation. The left ventricle appears hyperdynamic. The estimated ejection fraction is greater than 65%. There is mild to moderate mitral regurgitation. There is mitral annular calcification. There is trace tricuspid regurgitation. There is evidence of borderline pulmonary hypertension. There is a trace pulmonic regurgitation. No reports of prior studies are offered for comparison. Measurements Name Value Normal Range RVIDd (AP) 2D 1.7 cm (0.9 - 2.6) RVDdMajor (2D) 2.4 cm (2.2 - 4.4) RAd ISD 4CH 4.1 cm (3.4 - 4.9) RA (A4C)W 3.9 cm (2.9 - 4.6) IVSd (2D) 1.1 cm (0.6 - 1) LVPWd (2D) 1.1 cm (0.6 - 1) LVIDd (2D) 4.3 cm (3.6 - 5.4) LVIDs (2D) 2.8 cm - LV FS (2D) 34 % (25 - 45) Aortic Annulus 2 cm (1.4 - 2.6) Ao root diameter (2D) 2.8 cm (2.1 - 3.5) Ascending Ao 3 cm (2.1 - 3.4) Aortic arch 2.6 cm (1.8 - 3.4) LA dimension (AP) 2D 5 cm (2.3 - 3.8) LAd ISD 4CH 5.6 cm (2.9 - 5.3) LA ISD 4CH W 4.7 cm (2.5 - 4.5) Name Value Normal Range LA ESV SP 4CH (A/L) 71.9 ml - LA ESV SP 2CH (A/L) 71.55 ml - LA ESV BP (A/L) 74.1 ml - LA ESV BP (A/L) index 45.5 ml/m2 - LA ESV SP 4CH (MOD) 66.73 ml - LA ESV SP 2CH (MOD) 66.07 ml - Name Value Normal Range MV E-wave Vmax 1.2 m/sec - MV deceleration time 94 msec - MV A-wave Vmax 1.9 m/sec - MV E:A ratio 0.6 ratio - LV lateral e' Vmax 0.05 m/sec - LV E:e' lateral ratio 24 ratio - Name Value Normal Range AV Vmax 1.9 m/sec - AV VTI 33.1 cm - AV peak gradient 14 mmHg - AV mean gradient 7.5 mmHg - LVOT diameter 1.97 cm - MELANIE Vmax 0.9 m/sec - Name Value Normal Range MV Vmax 2.1 m/sec - MV VTI 37.9 cm - MV peak gradient 17.1 mmHg - MV mean gradient 8.2 mmHg - MV PHT 43 msec - MVA (PHT) 5.1 cm2 - Name Value Normal Range TR Vmax 2.8 m/sec - TR peak gradient 31 mmHg - RAP 3 mmHg - RVSP 34 mmHg - IVC diameter 1.9 cm - Name Value Normal Range PV Vmax 1.2 m/sec - PV peak gradient 6 mmHg -
[2017-05-21 17:13] LABS: Albumin 34 %; Gamma Globulin 45 %
[2017-05-21] MEDS ORDERED: Dexamethasone IV* 8 MG in NS 0.9% 50 ML* 50 ML IVPB SCH (19:00)
[2017-05-21] MEDS: Latanoprost 0.005%* 2.5 ml BTL BOTH EYES SCH (20:52)
[2017-05-22] MEDS: Heparin VIAL(*) 5000 UNITS/ML VIAL (FIVE THOUSAND) SUBCUT SCH ×3 (05:35→20:51)
[2017-05-22 06:50] LABS: BUN/Creatinine Ratio 14.5 (8-20); Calcium 7.9 mg/dL (8.6-10.3); EGFR African American 92.6 (>60); Potassium 3.5 mmol/L (3.5-5.0)
[2017-05-22] MEDS ORDERED: Dexamethasone IV* 4 MG/ML 1 ML (4 MG) IV SLOW PU SCH (09:00)
[2017-05-22] MEDS ORDERED: Dexamethasone IV* 4 MG/ML 5 ML VIAL (20 MG) ONE (09:38)
[2017-05-22] MEDS: Dexamethasone IV* 40 MG in NS 0.9% 50 ML* 50 ML IVPB SCH (09:57)
[2017-05-22] MEDS: OLOPATADINE 0.7% BOTH EYES SCH (10:08)
[2017-05-22] MEDS: Artificial Tears* 15 ML BTL BOTH EYES SCH (10:08)
[2017-05-22] MEDS: Aspirin Low Dose CHEW TAB* 81 MG PO SCH (10:08)
[2017-05-22] MEDS: Ascorbic Acid TAB* 500 MG PO SCH (10:08)
[2017-05-22] MEDS: Magnesium Oxide TAB* 400 MG PO SCH (10:08)
--- NOTE | 2017-05-22 13:08 | PN ---
Subjective Date of Service: 05/22/17 Interval History: HOSPITALIST PROGRESS NOTE Patient seen and examined at bedside. She is more alert and awake today. As per son she was able to ambulate with PT, had breakfast sitting up in her chair, and appetite is a little improved. Family History: Unchanged from Admission Social History: Unchanged from Admission Past Medical History: Unchanged from Admission Objective Active Medications: Acetaminophen (Tylenol Adult Liq*) 650 mg PO Q4H PRN PRN Reason: FEVER/PAIN Last Admin: 05/19/17 12:54 Dose: 650 mg Ascorbic Acid (Vitamin C Tab*) 1,000 mg PO DAILY [facility]ALIE Last Admin: 05/22/17 10:08 Dose: 1,000 mg Aspirin (Aspirin Low Dose Tab*) 81 mg PO DAILY [facility] Last Admin: 05/22/17 10:08 Dose: 81 mg Heparin Sodium (Porcine) (Heparin Vial(*)) 5,000 units SUBCUT Q8HR KALIE Last Admin: 05/22/17 05:35 Dose: 5,000 units Dexamethasone Sodium Phosphate (40 mg/ Sodium Chloride) 60 mls @ 240 mls/hr IVPB DAILY [facility]ALIE Stop: 05/25/17 09:14 Last Admin: 05/22/17 09:57 Dose: 240 mls/hr Latanoprost (Xalatan 0.005%*) 1 drop BOTH EYES BEDTIME [facility] Last Admin: 05/21/17 20:52 Dose: 1 drop Magnesium Oxide (Magox 400 Tab*) 400 mg PO DAILY [facility] Last Admin: 05/22/17 10:08 Dose: 400 mg Pto Pazeo 0.7% (Ophthalamic Drips) 1 drop BOTH EYES QAM [facility] Last Admin: 05/22/17 10:08 Dose: 1 drop Ondansetron HCl (Zofran Inj*) 4 mg IV Q4H PRN PRN Reason: NAUSEA/VOMITING Last Admin: 05/17/17 14:20 Dose: 4 mg Polyethylene Glycol/Electrolytes (Miralax*) 17 gm PO 0800,2100 [facility] Polyvinyl Alcohol (Polyvinyl Alcohol 1.4% Opth*) 1 drop BOTH EYES DAILY [facility] Last Admin: 05/22/17 10:08 Dose: 1 drop Vital Signs 05/21/17 05/21/17 05/21/17 15:35 19:57 20:00 Temperature 98.1 F 98.3 F Pulse Rate 92 93 Respiratory 21 22 16 Rate Blood Pressure 105/45 124/60 (mmHg) O2 Sat by Pulse 98 100 Oximetry 05/21/17 05/22/17 23:26 04:13 Temperature 98.6 F Pulse Rate 88 105 Respiratory 16 16 Rate Blood Pressure 134/59 142/58 (mmHg) O2 Sat by Pulse 100 97 Oximetry Oxygen Devices in Use Now: None Appearance: Pleasant elderly lady sitting up in a recliner in NAD. Eyes: No Scleral Icterus Ears/Nose/Mouth/Throat: Mucous Membranes Moist Neck: Trachea Midline Respiratory: Symmetrical Chest Expansion and Respiratory Effort, Clear to Auscultation Cardiovascular: RRR - Normal S1 and S2 Abdominal: NL Sounds; No Tenderness; No Distention Neurological: - - AAOx2 (self and place), RAZO Lines/Tubes/Other Access: Clean, Dry and Intact Peripheral IV Nutrition: Taking PO's Result Diagrams: 05/21/17 05:46 05/22/17 06:18 Assess/Plan/Problems-Billing Assessment: Hypercalcemia, UTI, JEISON, hypernatremia and mild troponin elevation in an 86 yo F with hx of LBBB, glaucoma, cataracts, central retinal vein occlusion - Patient Problems (1) Multiple myeloma Comment: - Presented with hypercalcemia, now resolved. - SPEP with M-spike, skeletal survey shows multiple lytic lesions most prominent in calvarium and femoral shafts, and BM biopsy confirms multiple myeloma. - Plan for high dose steroids for now. (2) UTI (urinary tract infection) Comment: - Urine culture grew schumacher-sensitive E coli - completed antibiotic therapy. (3) Abnormal TSH Comment: - Repeat of TFTs 05/17 show low normal TSH, decreased FT4 and FT3. Dr. Wisdom recommended additional thyroid testing to evaluate for Graves, Hashimotos, unremarkable so far. Can get thyroid US as outpatient. (4) Hypernatremia Comment: - Resolved. (5) Hypokalemia Comment: - Resolved. (6) Troponin level elevated Comment: - Peaked at 0.06, LBBB on EKG, no concerning events on tele, no chest pain. Likely demand ischemia. - Echocardiogram showed mild concentric LVH with outflow tract gradient secondary to basal septal hyperthrophy and MV chordae apparatus. LV septal wall motion abnormality secondary to LBBB, EF 65%, mild to moderate MR. (7) DVT prophylaxis Comment: - SQ heparin. (8) Full code status Status and Disposition: Inpatient for MM treatment. Anticipate d/c to [facility] in the next 1-2 days.
[2017-05-22] MEDS: Polyethylene Glycol 3350* 17 GM PACKET PO SCH (20:51)
[2017-05-22] MEDS: Latanoprost 0.005%* 2.5 ml BTL BOTH EYES SCH (20:52)
[2017-05-23] MEDS: Heparin VIAL(*) 5000 UNITS/ML VIAL (FIVE THOUSAND) SUBCUT SCH ×2 (05:25→14:54)
[2017-05-23 06:07] LABS: Calcium 8.3 mg/dL (8.6-10.3); Magnesium 2.3 mg/dL (1.9-2.7); Potassium 4.2 mmol/L (3.5-5.0)
[2017-05-23 06:13] LABS: BUN/Creatinine Ratio 18.7 (8-20); EGFR Non-African American 73.1 (>60)
[2017-05-23] MEDS: Polyethylene Glycol 3350* 17 GM PACKET PO SCH (08:32)
[2017-05-23] MEDS: Magnesium Oxide TAB* 400 MG PO SCH (08:34)
[2017-05-23] MEDS: Aspirin Low Dose CHEW TAB* 81 MG PO SCH (08:34)
[2017-05-23] MEDS: Ascorbic Acid TAB* 500 MG PO SCH (08:34)
[2017-05-23] MEDS: OLOPATADINE 0.7% BOTH EYES SCH (08:39)
[2017-05-23] MEDS: Artificial Tears* 15 ML BTL BOTH EYES SCH (08:40)
[2017-05-23] MEDS: Acetaminophen ADULT LIQ* 650 MG/20.3 ML UDC PO PRN (08:47)
[2017-05-23] MEDS: Dexamethasone IV* 40 MG in NS 0.9% 50 ML* 50 ML IVPB SCH ×2 (08:47→11:16)
[2017-05-23 13:13] VITALS: BP 133/63
--- NOTE | 2017-05-23 15:34 | DS ---
CC: Rosalio Stanley NP; Dr. Mustafa; Dr. Lucia; [facility] * DATE OF ADMISSION: 05/14/2017. DATE OF DISCHARGE: 05/23/2017. DISCHARGE DIAGNOSES: 1. Multiple myeloma. 2. E. coli urinary tract infection present on admission. 3. Low TSH. 4. Hypercalcemia. 5. Hypernatremia. 6. Hypokalemia. 7. Mild troponin elevation, likely secondary to demand ischemia. 8. Anemia and thrombocytopenia associated with multiple myeloma. SECONDARY DIAGNOSES: 1. Central retinol vein occlusion. 2. Glaucoma. 3. Status post bilateral cataract surgery. 4. Status post hernia repair. 5. Known left bundle branch block. MEDICATIONS: 1. Magnesium 300 mg p.o. b.i.d. 2. Refresh Tears 0.5% to both eye daily. 3. Folic acid/vitamin B6 one tablet p.o. daily. 4. Menthol Methyl Salicylate pain cream topical to affected areas daily as needed for pain. 5. Vitamin E/Selenium 400/50 one capsule p.o. daily. 6. Calcium plus vitamin D 250/125 500 mg p.o. daily. 7. Loratadine 10 mg p.o. daily as needed for allergies. 8. Cranberry 500 mg p.o. daily. 9. Aspirin 81 mg p.o. daily. 10. Vitamin C 1000 mg p.o. daily. 11. Pazeo 0.7% one drop to both eyes in the morning. 12. Xalatan 0.005% one drop to both eyes at bedtime. New medication: 1. MiraLax 17 gm p.o. b.i.d., hold for loose stools. 2. Dexamethasone 40 mg p.o. on May 24 and May 25. 3. Acetaminophen 650 mg p.o. q.4 hours prn pain or fever. HOSPITAL COURSE: Ms. Barrera is an 86-year-old lady with a past medical history as stated above who was brought into the emergency room with her son due to fatigue. The patient was described at baseline as alert and oriented times three , elderly lady who ambulates with a cane and is generally very active, but since January she has been noted to have progressive decline that initially was felt to be secondary to side effects of different medications. Two days prior to admission, the patient had a fall without loss of consciousness, but there was also report of progressive fatigue and weakness. For more details about her presentation, I refer you to her history and physical. In the emergency room, she had a urinalysis that was abnormal and was found to have elevated calcium of 13.9. The patient was admitted for further evaluation and treatment. The patient received IV hydration, was started on Ciprofloxacin with some minimal improvement. CT of the brain without contrast was a negative examination. Chest x-ray showed no active cardiopulmonary disease. Due to her hypercalcemia, SPEP was performed and it showed M-spike concerning for multiple myeloma. She had a bone osseous survey that showed multiple tiny lytic lesions present, most prominent in the calvaria and the femoral shafts bilaterally. The spine and ribs are difficult to evaluate due to osteopenia, although there is compression of the L3 vertebra. Lung wood demonstrate probable right pleural effusion. Due to the suspicious for multiple myeloma, the patient was seen in consultation by Dr. Lucia and his impression was that this patient was an 86- year-old female with hypercalcemia, anemia, thrombocytopenia, elevated total protein and M-spike. Creatinine had been mildly elevated and is now back to her baseline. It is likely that she has multiple myeloma. The work-up was continued including bone marrow biopsy that showed bone marrow involved by plasma cell myeloma. The patient was seen in follow-up by Dr. Lucia and he reviewed the bone marrow with pathology showing that it is extensively infiltrated by plasma cells, thus confirming multiple myeloma in conjunction with lytic bone lesions, anemia and hypercalcemia. He discussed the situation with the patient and son. He felt that she currently seems to be too weak and frail for standard myeloma therapy with either Revlimid/Dexamethasone or Melphalan/Prednisone. He discussed side effects of high dose Decadron and his recommendation was for Decadron 40 mg daily for four days. The patient received her first two doses while in the hospital with no significant side effects and she will receive two more doses p.o. The hope is that with steroids the patient has a burst of energy, becomes more active, is able to work more with physical therapy, and if her condition improves and she gets closer to her baseline in January, she would then be a candidate for further chemotherapy. The patient was found to have minimal elevation of troponins on admission, peaking at 0.06. She had no complaints of chest pain and no ischemic changes on her EKG, only her known left bundle branch block. Transthoracic echocardiogram was performed and it showed mild concentric LVH with basal septal hypertrophy and systolic anterior motion of the mitral valve chordal apparatus creating an outflow tract gradient. There is left ventricular septal wall motion abnormality due to presence of the left bundle branch block. Ejection fraction is greater than 65 percent. Considering the patient's age and condition at this point, I believe no further ischemic work- up is indicated. On admission, the patient was also found to have an abnormal urinalysis and her urine culture grew pansensitive E. coli that was treated with Ciprofloxacin. The patient was also found to have a low TSH at 0.04 with low free T4 at 2.[address] Alva discussed this finding with Dr. Wisdom who recommended additional thyroid testing to evaluate for Grave's disease, Samreen's disease and those tests are pending and should be followed as an outpatient. There was also a recommendation for a thyroid ultrasound as an outpatient. The patient is more alert, but still very weak and deconditioned. Due to her PT needs, the patient was offered a bed at [facility] to continue her rehabilitation process. PHYSICAL EXAMINATION: General: The patient is a pleasant, elderly lady, lying in a recliner in no acute distress. Vital Signs: Temperature 97.8, heart rate 86, respiratory rate 16, oxygen saturation 100 percent on room air, blood pressure 129/59. CVS: Normal S1, S2. Regular rate and rhythm. Chest: Breath sounds bilaterally with no added sounds. Abdomen: Soft, bowel sounds are present. Extremities: No edema. Neuro: She is alert, awake, oriented to self and place, able to move all four extremities. DIET: Regular diet. ACTIVITIES: As tolerated. DISPOSITION: To [facility]. STATUS WHILE IN THE HOSPITAL: Inpatient. Please keep in mind this is a summarized version of this patient's hospital stay. If you need more information, please feel free to call me at or please obtain the full medical records. Approximately 45 minutes were spent to complete this discharge. [id number]/CPS #: [id number] MTDD
[2017-05-28 16:11] LABS: BM Referral Reason hypercalcemia; BM Result Summary Abnormal; Plasma Cell Dis Res Summary Abnormal; Plasma Cell Referral Reason hypercalcemia
== END 2017-05-23 16:00 | DRG 841 ==
LOC: ED 11:07 → MEDTELE 16:52 → MED 05-19 20:36
PROVIDERS: ADMIT Internal Medicine; ATTEND Internal Medicine
PROC: 07DR3ZX Extraction of Iliac Bone Marrow, Percutaneous Approach, Diagnostic (ICD-10-PCS; principal; 2017-05-20)
DX: C90.00 Multiple myeloma not having achieved remission (principal); N39.0 Urinary tract infection, site not specified; N17.9 Acute kidney failure, unspecified; E87.0 Hyperosmolality and hypernatremia; I24.8 Other forms of acute ischemic heart disease; D69.59 Other secondary thrombocytopenia; E83.52 Hypercalcemia; H34.8192 Central retinal vein occlusion, unspecified eye, stable; B96.20 Unspecified Escherichia coli [E. coli] as the cause of diseases classified elsewhere; E87.6 Hypokalemia; R74.8 Abnormal levels of other serum enzymes; D64.89 Other specified anemias; H40.9 Unspecified glaucoma; I44.7 Left bundle-branch block, unspecified; M85.88 Other specified disorders of bone density and structure, other site; R94.6 Abnormal results of thyroid function studies; Z79.82 Long term (current) use of aspirin; Z79.899 Other long term (current) drug therapy; Z88.0 Allergy status to penicillin; Z87.891 Personal history of nicotine dependence; Z80.42 Family history of malignant neoplasm of prostate; Z84.89 Family history of other specified conditions; C90.10 Plasma cell leukemia not having achieved remission
CPT/HCPCS: 36415; 38220; 38221; 70450; 71010; 77075; 80048; 80053; 80076; 81003; 81015; 81479; 82140; 82232; 82306; 82330; 82397; 82550; 82652; 82728; 82784; 83520; 83540; 83550; 83605; 83735; 83880; 83883; 83970; 84155; 84156; 84165; 84166; 84439; 84443; 84445; 84481; 84484; 84550; 85025; 85060; 85097; 85810; 86140; 86334; 86376; 86800; 87040; 87077; 87086; 87186; 88184; 88188; 88237; 88271; 88305; 88311; 88313; 93005; 93306; 99231; 99232; A9270-GY; C8929; J0630; J0690; J0744; J1100; J1644; J2405; J3475; J3480; J3489; J7060

== ENCOUNTER → 2017-05-27 08:42 | Emergency (ER) | payer MEDICARE ==
[~2017-05-27 08:42] MED LIST: Iohexol 300* (CONTRAST) 10 ML SDV IV ONE; Morphine INJ* 4 MG/ML 1 ML SYRINGE IV ONE; NS 0.9% 1000 ML* 1,000 ML IV ONE
[2017-05-27 10:29] LABS: Urine Bacteria Absent (Absent); Urine Bilirubin Negative (Negative); Urine Glucose Negative (Negative); Urine Nitrite Negative (Negative)
[2017-05-27 10:37] LABS: Hematocrit 28 % (35-47); Hemoglobin 9.4 g/dl (12.0-16.0); Mean Corpuscular HGB Conc 34 g/dl (31-36); Mean Corpuscular Hemoglobin 30 pg (27-31); Mean Corpuscular Volume 89 fL (80-97); Mean Platelet Volume 11 um3 (7.4-10.4); Red Cell Distribution Width 15 % (10.5-15); White Blood Count 17.9 10^3/ul (3.5-10.8)
[2017-05-27 10:40] LABS: Add Diff/Slide Review? Slide Review Added; Comments Flag Yes
[2017-05-27 10:49] VITALS: BP 124/64
[2017-05-27 10:56] LABS: Troponin I 0.01 ng/mL (<0.04)
[2017-05-27 10:59] LABS: Albumin 2.6 g/dL (3.2-5.2); BUN/Creatinine Ratio 16.4 (8-20); Calcium 8.3 mg/dL (8.6-10.3); EGFR African American 107.1 (>60); EGFR Non-African American 83.3 (>60); Globulin 5.2 g/dL (2-4); Potassium 3.4 mmol/L (3.5-5.0); Total Bilirubin 0.8 mg/dL (0.2-1.0); Total Protein 7.8 g/dL (6.4-8.9)
[2017-05-27 11:26] LABS: Immature Granulocytes 3 % (0-9); Metamyelocytes % 2 % (0-2); Neutrophil % 54 % (38-83)
[2017-05-27 11:27] LABS: Reactive Lymph % 31 % (0-6)
[2017-05-27 11:28] LABS: Add Path Review? YES; Rouleaux 2+
--- NOTE | 2017-05-27 11:59 | RAD ---
INDICATION: Trauma COMPARISON: Brain CT dated May 14, 2017 TECHNIQUE: Contiguous axial sections of the brain were obtained from the skull base to the vertex without contrast. FINDINGS: The ventricles, cisterns and sulci exhibit mild and symmetric involutional changes. There is very mild periventricular and subcortical white matter hypoattenuation most consistent with chronic microvascular disease that is unchanged from the previous CT of the brain. The gutierrez-white matter differentiation is adequately maintained and there is no sulcal effacement. No significant focal abnormality or mass effect is present. There is no evidence for intracranial hemorrhage. No significant focal osseous abnormality is present. The visualized portion of the paranasal sinuses and mastoid air cells appear clear. IMPRESSION: Mild age-appropriate chronic findings without CT evidence of acute intracranial traumatic injury.
--- NOTE | 2017-05-27 12:02 | RAD ---
HISTORY: Trauma COMPARISONS: None TECHNIQUE: Multiple contiguous axial CT scans were obtained of the cervical spine without intravenous contrast, with coronal and sagittal multiplanar reformations. FINDINGS: BRAIN: The visualized brain is unremarkable CENTRAL CANAL: Evaluation of the central canal is limited on CT technique; however, there is no obvious canalicular mass or epidural hemorrhage. ALIGNMENT: The alignment is normal, without subluxation or dislocation. VERTEBRAL BODIES: There is diffuse osteopenia. There is no displaced fracture. There is multilevel anterolateral marginal osteophyte formation. There is circumscribed lytic lesions of the spinal column including of the right lateral mass of C5, and the anterior vertebral bodies of C5 and C6. JOINTS: There is osteoporosis of the uncovertebral and facet joints. MUSCULATURE: Unremarkable INTERVERTEBRAL DISCS: There is diffuse loss of intervertebral disc height. AXIAL IMAGES: C2-C3: There is a small central disc protrusion measuring 0.3 cm in depth. There is no osseous neural foraminal area or central canal stenosis. C3-C4: There is no osseous neural foraminal narrowing or central canal stenosis. C4-C5: There is bilateral uncovertebral and facet hypertrophy. There is no osseous neural foraminal narrowing of central canal stenosis. C5-C6: There is bilateral uncovertebral and facet hypertrophy. There is moderate right neural foraminal narrowing. There is no osseous central canal stenosis. C6-C7: There is bilateral uncovertebral and facet hypertrophy. There is moderate bilateral neural foraminal narrowing. There is no osseous central canal stenosis. C7-T1: There is no osseous neural foraminal narrowing or central canal stenosis. SOFT TISSUES: There are multiple thyroid nodules. The prevertebral fat stripe is preserved. OTHER: None. IMPRESSION: 1. OSTEOPENIA. 2. DEGENERATIVE DISC DISEASE AND OSTEOARTHRITIS. 3. NO ACUTE OSSEOUS INJURY TO THE CERVICAL SPINE. 4. THERE MULTIPLE CIRCUMSCRIBED LYTIC LESION, CONSISTENT WITH THE HISTORY OF MULTIPLE MYELOMA. 5. MULTIPLE THYROID NODULES. RECOMMEND CONSIDERATION OF CORRELATION WITH DEDICATED IMAGING OF THE THYROID IN THE NONACUTE SETTING.
--- NOTE | 2017-05-27 12:18 | RAD ---
INDICATION: Right hip pain following traumatic fall. COMPARISON: None. TECHNIQUE: Multidetector CT images of the chest, abdomen and pelvis were obtained from the lung apices to the ischial tuberosities following the injection of 76 mL Omnipaque 300. The patient received oral contrast as well.. CHEST: There are very small bibasilar pleural effusions. There are hypoventilatory changes at the bilateral lung bases. The lungs are grossly clear. There is mild asymmetric engorgement of the right lung base pulmonary veins. There is no definite arteriovenous malformation. There is no mediastinal or hilar lymphadenopathy. There is coarse atherosclerotic calcification at the mitral valve and less significant calcification at the aortic valve and arch of the aorta. The heart is normal size. There is no large pericardial effusion. ABDOMEN \T\ PELVIS: Multiple low-density foci are seen in the liver. The larger foci have a Hounsfield unit compatible with a simple cyst. The liver is otherwise homogenous in attenuation and the surface is smooth. The spleen, pancreas and adrenal glands are grossly normal in appearance. The gallbladder is normal. At the right upper pole there is a 1.2 cm cortical lesion (axial image 21 and coronal image 44) with a Hounsfield unit greater than that of a simple cyst. Additional low density hypodense foci in the bilateral kidneys are too small to characterize further. There is a nonobstructing renal calculus in the upper pole of the right collecting system. The kidneys are otherwise normal in appearance. Evaluation of the gastrointestinal tract is limited in the absence of oral contrast.. The small and large bowel are not distended. The appendix measures up to 6 mm in diameter with hyperdense material in the distal portion (coronal image 30 and 32). Rectosigmoid diverticula are noted but none exhibit acute inflammatory change.. There is no gross retroperitoneal or mesenteric lymphadenopathy. Coarse calcification in the uterus is most consistent with chronic fibroids. The abdominal aorta and iliac arteries are normal in course and diameter. Multilevel degenerative changes of the thoracic and lumbar spine includes loss of intervertebral disc height. There are age indeterminate compression deformities involving the T9 and T5 vertebral bodies with medullary lucencies and preservation of the cortex. There is a compression deformity at the superior endplate of the L3 vertebral body without retropulsion of fragments or significant soft tissue reaction. Overall there are innumerable subcentimeter lucencies seen in the vertebral bodies, ribs and pelvis. IMPRESSION: 1. There are age indeterminate compression deformities of the T5, T9 and L3 vertebral bodies. If the patient's focality of pain corresponds to these levels further characterization can be made with MRI of the spine. 2. There are widespread subcentimeter lucencies in the visualized bones in keeping with the patient's reported history of multiple myeloma. 3. At the superior pole of the right kidney there is a low-density partially soft tissue lesion. Further characterization can be made with nonemergent ultrasound of the kidney unless prior imaging can be made available to determine chronicity. 4. Additional chronic and degenerative findings as described above.
--- NOTE | 2017-05-27 18:49 | ED ---
Roz Viera Edward, scribed for Cliff Oneil MD on 05/27/17 at 0906 . Adult Trauma - HPI Summary HPI Summary: 86 y/o female presents to the ED c/o sudden onset R lower back pain s/p fall this morning. The pain is rated at 7/10 in severity. Associated sx: ABD pain at the RUQ, pain @ side of her ribs on the R side. Pt remembers falling, stating that she fell because the floor was slippery in the bathroom. She did not hit her head during the fall. Pt lives at [facility]. Pt was recently dx with a UTI. - History of Current Complaint Chief Complaint: EDHipPelvisInjury Stated Complaint: HIP PAIN Time Seen by Provider: 05/27/17 09:03 Hx Obtained From: Patient Mechanism of Injury: Fall Onset/Duration: Started Hours Ago Onset of Pain: Immediate, Post Accident Current Severity: Moderate Pain Intensity: 7 Pain Scale Used: 0-10 Numeric Location: Back - R side lower back Associated Signs & Symptoms: Positive: Abdominal Pain - RUQ, Other: - R side rib pain - Additional Pertinent History Primary Care Physician: GERALDO - Allergy/Home Medications Allergies/Adverse Reactions: Allergies Allergy/AdvReac Type Severity Reaction Status Date / Time Penicillins [PCN] Allergy ITCHY AND Verified 10/18/15 10:04 RASH PMH/Surg Hx/FS Hx/Imm Hx Previously Healthy: No Endocrine/Hematology History: Denies: Hx Diabetes Cardiovascular History: Denies: Hx Hypertension Respiratory History: Denies: Hx Chronic Obstructive Pulmonary Disease (COPD) History: Denies: Hx Dialysis Musculoskeletal History: Reports: Hx Arthritis - HANDS Denies: Hx Back Problems Sensory History: Reports: Hx Cataracts - BILATERAL, Hx Glaucoma - BILATERAL Denies: Hx Contacts or Glasses, Hx Hearing Aid Opthamlomology History: Reports: Hx Cataracts - BILATERAL, Hx Glaucoma - BILATERAL Denies: Hx Contacts or Glasses Neurological History: Denies: Hx Dementia, Hx Seizures - Surgical History Surgery Procedure, Year, and Place: HERNIA REPAIR-1980. cataract surgery Hx Anesthesia Reactions: No Infectious Disease History: No Infectious Disease History: Denies: Traveled Outside the [place] in Last 30 Days - Family History Known Family History: Positive: Other - Prostate CA, tuberculosis - Social History Alcohol Use: Daily Alcohol Amount: 1 DRINK PER DAY Hx Substance Use: No Substance Use Type: Reports: None Hx Tobacco Use: Yes Smoking Status (MU): Former Smoker Amount Used/How Often: < 1 PPD X5 YEARS Have You Smoked in the Last Year: No Review of Systems Constitutional: Negative Eyes: Negative ENT: Negative Cardiovascular: Negative Respiratory: Negative Positive: Abdominal Pain - RUQ pain Genitourinary: Negative Positive: Arthralgia - R side lower back pain and pain @ ribs Skin: Negative Neurological: Negative Psychological: Normal All Other Systems Reviewed And Are Negative: Yes Physical Exam Triage Information Reviewed: Yes Vital Signs On Initial Exam: Initial Vitals Temp Pulse Resp BP Pulse Ox 98.8 F 99 16 142/69 96 05/27/17 09:00 05/27/17 09:00 05/27/17 09:00 05/27/17 09:00 05/27/17 09:00 Vital Signs Reviewed: Yes Appearance: Positive: Well-Appearing, No Pain Distress Skin: Positive: Warm Head/Face: Positive: Normal Head/Face Inspection Eyes: Positive: EOMI ENT: Positive: Normal ENT inspection, Pharynx normal Neck: Positive: Supple, Nontender Respiratory/Lung Sounds: Positive: Clear to Auscultation, Breath Sounds Present , Other - tender over the right upper abdomen and right lower chest wall. Cardiovascular: Positive: RRR. Negative: Murmur Abdomen Description: Positive: Other: - tender in the right upper quadrant Pelvic Exam: Positive: other - no tenderness over the right or left hips. She lifts right and left leg up withtout pain. Musculoskeletal: Positive: Strength/ROM Intact, Other - HER CTLS SPINE is palpated, and she has no point tenderness over the back. Neurological: Positive: Sensory/Motor Intact, Alert, Oriented to Person Place, Time, CN Intact II-III Psychiatric: Positive: Normal Diagnostics - Vital Signs Vital Signs Temp Pulse Resp BP Pulse Ox 05/27/17 09:00 98.8 F 99 16 142/69 96 - Laboratory Result Diagrams: 05/27/17 10:10 05/27/17 10:10 Lab Statement: Any lab studies that have been ordered have been reviewed, and results considered in the medical decision making process. - CT BRAIN CT CT Interpretation: No Acute Changes - Mild age-appropriate chronic findings without CT evidence of acute intracranial traumatic injury. CT Interpretation Completed By: Radiologist C SPINE CT CT Interpretation: Positive (See Comments) - 1. OSTEOPENIA. 2. DEGENERATIVE DISC DISEASE AND OSTEOARTHRITIS. 3. NO ACUTE OSSEOUS INJURY TO THE CERVICAL SPINE. 4. THERE MULTIPLE CIRCUMSCRIBED LYTIC LESION, CONSISTENT WITH THE HISTORY OF MULTIPLE MYELOMA. 5. MULTIPLE THYROID NODULES. RECOMMEND CONSIDERATION OF CORRELATION WITH DEDICATED IMAGING OF THE THYROID IN THE NONACUTE SETTING. CT Interpretation Completed By: Radiologist CHEST/ABD/PEL CT CT Interpretation: Positive (See Comments) - 1. There are age indeterminate compression deformities of the T5, T9 and L3 vertebral bodies. If the patient's focality of pain corresponds to these levels further characterization can be made with MRI of the spine. 2. There are widespread subcentimeter lucencies in the visualized bones in keeping with the patient's reported history of multiple myeloma. 3. At the superior pole of the right kidney there is a low-density partially soft tissue lesion. Further characterization can be made with nonemergent ultrasound of the kidney unless prior imaging can be made available to determine chronicity. 4. Additional chronic and degenerative findings as described above. CT Interpretation Completed By: Radiologist - EKG 1 EKG Interpretation: 09:47 - NO STEMI, SINUS RHYTHM @ 87 BPM. LBBB Re-Evaluation - Re-Evaluation 1 Re-Evaluation Time: 12:35 Change: Improved - the patient was able to get up and walk with a walker. Per her son's she appears to be doing fine, and they feel comfortable with her going to back to the facility where she ahs aids, nurses, and help. Adult Trauma Course/Dx - Course Course Of Treatment: 86 yr old female with chest wall and upper abdominal injury after falling. - Diagnoses Provider Diagnoses: Chest wall contusion Discharge - Discharge Plan Condition: Good Disposition: JAIL FACILITY Patient Education Materials: Chest Wall Pain (ED) Referrals: Rosalio Stanley NP [Primary Care Provider] - The documentation as recorded by the Roz blanchard Edward accurately reflects the service I personally performed and the decisions made by , Cliff Oneil MD.
== END ==
LOC: ED 08:42
DX: S20.219A Contusion of unspecified front wall of thorax, initial encounter (principal); M54.5 Low back pain; R10.11 Right upper quadrant pain; Z87.891 Personal history of nicotine dependence; W19.XXXA Unspecified fall, initial encounter; Y93.9 Activity, unspecified; Y92.9 Unspecified place or not applicable
CPT/HCPCS: 36415; 70450; 71260; 72125; 74177; 80053; 81003; 81015; 83605; 84484; 85025; 85060; 85610; 87086; 93005; 99283; J2270; Q9967

== ENCOUNTER 2019-07-22 18:20 | Inpatient (IN) | payer MEDICARE ==
--- NOTE | 2019-07-22 18:51 | ED ---
Adult Trauma - HPI Summary HPI Summary: 88-year-old female presents with right hip pain. States that she was going to bathroom and ended up falling and hitting her right hip. She states that she did not have chest pain or shortness breath prior. She states it was a mechanical fall. She states that she had to call to the phone with her arms and that she had chest wall pain since. in up chest to shoulder. no head injury. no LOC. no other injury. has history of multiple myeloma. She lives at home with son. - History of Current Complaint Chief Complaint: EDHipPelvisInjury Stated Complaint: FALL PER EMS Time Seen by Provider: 07/22/19 18:31 Pain Intensity: 6 - Additional Pertinent History Primary Care Physician: GERALDO - Allergy/Home Medications Allergies/Adverse Reactions: Allergies Allergy/AdvReac Type Severity Reaction Status Date / Time Penicillins Allergy Itching Verified 04/29/18 14:57 Home Medications: Home Medications Ascorbic Acid TAB* [Vitamin C TAB*] 1,000 mg PO DAILY 07/22/19 [History Confirmed 07/22/19] Mike/Vit B12/Folic Acid/Vit B6 [Folic Acid-Vit B6-Vit B12 Tab] 1 tab PO DAILY [History Confirmed 07/22/19] Carboxymethylcellulose Sodium [Refresh Tears] 1 drop BOTH EYES DAILY 07/22/19 [ History Confirmed 07/22/19] Dexamethasone TAB* [Decadron TAB*] 12 mg PO WEEKLY 07/22/19 [History Confirmed 07/22/19] PMH/Surg Hx/FS Hx/Imm Hx Endocrine/Hematology History: Denies: Hx Anticoagulant Therapy, Hx Diabetes Cardiovascular History: Denies: Hx Hypertension, Hx Pacemaker/ICD Respiratory History: Denies: Hx Chronic Obstructive Pulmonary Disease (COPD) History: Denies: Hx Dialysis, Hx Renal Disease Musculoskeletal History: Reports: Hx Arthritis - HANDS Denies: Hx Back Problems Sensory History: Reports: Hx Cataracts - BILATERAL, Hx Glaucoma - BILATERAL Denies: Hx Contacts or Glasses, Hx Hearing Aid Opthamlomology History: Reports: Hx Cataracts - BILATERAL, Hx Glaucoma - BILATERAL Denies: Hx Contacts or Glasses Neurological History: Denies: Hx Dementia, Hx Seizures Psychiatric History: Denies: Hx Panic Disorder - Cancer History Cancer Type, Location and Year: MULTIPLE MYELOMA Hx Chemotherapy: No Hx Radiation Therapy: No - Surgical History Surgery Procedure, Year, and Place: HERNIA REPAIR-1980. cataract surgery Hx Anesthesia Reactions: No Infectious Disease History: No Infectious Disease History: Denies: Traveled Outside the [place] in Last 30 Days - Family History Known Family History: Positive: Unknown - Per history and physical 10/14/15, Other - Prostate CA, tuberculosis - Social History Alcohol Use: None Alcohol Amount: 3 x/week Hx Substance Use: No Substance Use Type: Reports: None Hx Tobacco Use: Yes Smoking Status (MU): Former Smoker Amount Used/How Often: < 1 PPD X5 YEARS Have You Smoked in the Last Year: No Review of Systems Negative: Fever Positive: Chest Pain - wall pain Negative: Shortness Of Breath Positive: Myalgia - right hip pain All Other Systems Reviewed And Are Negative: Yes Physical Exam Triage Information Reviewed: Yes Vital Signs On Initial Exam: Initial Vitals Temp Pulse Resp BP Pulse Ox 98.6 F 57 16 145/86 99 07/22/19 18:27 07/22/19 18:27 07/22/19 18:27 07/22/19 18:27 07/22/19 18:27 Vital Signs Reviewed: Yes Appearance: Positive: Well-Appearing Skin: Positive: Warm, Dry Head/Face: Positive: Normal Head/Face Inspection Eyes: Positive: Normal, EOMI, JOANN, Conjunctiva Clear ENT: Positive: Pharynx normal Respiratory/Lung Sounds: Positive: Clear to Auscultation, Breath Sounds Present , Other - nontender chest wall Cardiovascular: Positive: Normal, RRR Abdomen Description: Positive: Nontender, Soft Bowel Sounds: Positive: Present Musculoskeletal: Positive: Limited @ - right leg, Other - tenderness right hip, good pulses, nontender right knee Neurological: Positive: Normal Psychiatric: Positive: Normal Procedures - Sedation Patient Received Moderate/Deep Sedation with Procedure: No Diagnostics - Vital Signs Vital Signs Temp Pulse Resp BP Pulse Ox 07/22/19 18:27 98.6 F 57 16 145/86 99 - Laboratory Result Diagrams: 07/27/19 09:38 07/27/19 09:38 Lab Statement: Any lab studies that have been ordered have been reviewed, and results considered in the medical decision making process. - Radiology hip Radiology Interpretation Completed By: ED Physician Summary of Radiographic Findings: no fracture femur Radiology Interpretation Completed By: ED Physician Summary of Radiographic Findings: no fracture chest Radiology Interpretation Completed By: ED Physician Summary of Radiographic Findings: no active disease - CT pelvis CT Interpretation Completed By: Radiologist Summary of CT Findings: IMPRESSION: 1. Question of nondisplaced or incomplete cortical fracture along the posterior aspect of the right proximal femur. 2. Small fat filled left inguinal hernia. 3. Colonic diverticulosis. 4. Multiple scattered areas of focal lucency, some with adjacent cortical absence or erosion which is slightly increased since 05/27/2017 and suggests multiple myeloma. - EKG No standard instances Cardiac Rate: NL EKG Rhythm: Sinus Rhythm EKG Comparison: No Significant Change Summary of EKG Findings: sinus rhythm, LBBB Re-Evaluation - Re-Evaluation First Eval Re-Evaluation Time: 20:05 Comment: discussed no fx seen on xray so will get CT Second Eval Re-Evaluation Time: 22:30 Comment: discussed only pain when moves so will give tyenlol Adult Trauma Course/Dx - Course Course Of Treatment: 88-year-old female presents with right hip pain. States that she was going to bathroom and ended up falling and hitting her right hip. She states that she did not have chest pain or shortness breath prior. She states it was a mechanical fall. She states that she had to call to the phone with her arms and that she had chest wall pain since. in up chest to shoulder. no head injury. no LOC. no other injury. has history of multiple myeloma. on exam tenderness right hip. unable to lift right hip. neurovascular intact. xray preliminary no fracture. CT shows nondisplaced or incomplete cortical fracture along posterior aspect of right proximal femur. discussed with dr houston that will not need surgery. discussed with dr chapin who agrees to admit as patient lives at home. - Diagnoses Differential Diagnosis/HQI/PQRI: Positive: Abrasion(s), Contusion(s), Fracture Provider Diagnoses: Right femoral fracture, Fall Discharge ED - Sign-Out/Discharge Documenting (check all that apply): Patient Departure - Discharge Plan Condition: Stable Disposition: ADMITTED TO [facility] - Billing Disposition and Condition Condition: STABLE Disposition: Admitted to [facility] - Attestation Statements Provider Attestation: I agree with the plan and documentation below, briefly elderly female p/w hip pain after fall. XR neg, CT w possible fr. Admit to medicine, non op per orthopedics. Caelyn [place], MD
[2019-07-22 19:15] LABS: ABS Basophils 0.1 10^3/ul (0-0.2); ABS Lymphocytes 1.6 10^3/ul (1.0-4.8); ABS Monocytes 0.8 10^3/ul (0-0.8); ABS Neutrophils 3.5 10^3/ul (1.5-7.7); Eosinophil % 0.4 %; Hematocrit 35 % (35-47); Hemoglobin 11.7 g/dL (12.0-16.0); Lymphocyte % 26.1 %; Mean Corpuscular HGB Conc 33 g/dL (31-36); Mean Corpuscular Hemoglobin 31 pg (27-31); Mean Corpuscular Volume 93 fL (80-97); Mean Platelet Volume 9.8 fL (7.4-10.4); Nucleated Red Blood Cells % 0.1; Platelet Count 123 10^3/uL (150-450); Red Blood Count 3.77 10^6 /uL (3.70-4.87); Red Cell Distribution Width 17 % (10-15); White Blood Count 5.9 10^3/uL (3.5-10.8)
[2019-07-22 19:24] LABS: Activated Partial Thrombo Time 35.6 seconds (26.0-38.0); INR 1.04 (0.82-1.09)
[2019-07-22 19:30] LABS: Albumin 3.2 g/dL (3.2-5.2); Albumin/Globulin Ratio 1.5 (1-3); Calcium 8.8 mg/dL (8.6-10.3); EGFR African American 59.1 (>60); EGFR Non-African American 48.8 (>60); Globulin 2.1 g/dL (2-4); Potassium 3.8 mmol/L (3.5-5.0); Total Bilirubin 0.5 mg/dL (0.2-1.0); Total Protein 5.3 g/dL (6.4-8.9)
[2019-07-22 19:31] LABS: Troponin I 0.03 ng/mL (<0.04)
[2019-07-22 19:52] LABS: Urine Appearance Cloudy; Urine Bilirubin Negative (Negative); Urine Blood Negative (Negative); Urine Color Yellow; Urine Glucose Negative (Negative); Urine Ketones Negative (Negative); Urine Nitrite Negative (Negative); Urine Protein Negative (Negative); Urine Specific Gravity 1.019 (1.010-1.030); Urine Urobilinogen Negative (Negative)
[2019-07-22] MEDS ORDERED: Acetaminophen TAB* 325 MG PO ONE (22:23)
[2019-07-22] MEDS ORDERED: Ondansetron INJ* 2 MG/ML VIAL IV PRN (23:12)
[2019-07-22] MEDS ORDERED: METHYL SALICYLATE TOPICAL PRN (23:18)
[2019-07-22] MEDS ORDERED: MENTHOL TOPICAL PRN (23:18)
[2019-07-22] MEDS ORDERED: traMADol TAB* 50 MG PO PRN (23:25)
[2019-07-23] MEDS: Enoxaparin(*) 40 MG/0.4 ML SYR SUBCUT SCH ×2 (00:34→20:41)
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
[2019-07-23 06:56] LABS: ABS Basophils 0.1 10^3/ul (0-0.2); ABS Eosinophils 0.1 10^3/ul (0-0.6); ABS Lymphocytes 1.5 10^3/ul (1.0-4.8); ABS Monocytes 0.9 10^3/ul (0-0.8); ABS Neutrophils 1.9 10^3/ul (1.5-7.7); Eosinophil % 1.5 %; Hematocrit 30 % (35-47); Hemoglobin 10.4 g/dL (12.0-16.0); Lymphocyte % 33.6 %; Mean Corpuscular HGB Conc 35 g/dL (31-36); Mean Corpuscular Hemoglobin 32 pg (27-31); Mean Corpuscular Volume 93 fL (80-97); Mean Platelet Volume 10.4 fL (7.4-10.4); Platelet Count 107 10^3/uL (150-450); Red Blood Count 3.23 10^6 /uL (3.70-4.87); Red Cell Distribution Width 16 % (10-15); White Blood Count 4.4 10^3/uL (3.5-10.8)
[2019-07-23 07:13] LABS: BUN/Creatinine Ratio 16.1 (8-20); Calcium 8.4 mg/dL (8.6-10.3); EGFR African American 74.2 (>60); EGFR Non-African American 61.3 (>60); Potassium 3.6 mmol/L (3.5-5.0)
--- NOTE | 2019-07-23 08:58 | PN ---
Progress Note - Progress Note Date of Service: 07/23/19 SOAP: Subjective: patient well known to our service. 88 yo F w plasma cell leukemia dx 2 years ago with excellent control of disease with revlimid/dexamethasone presenting with a mechanical fall and likely right femur fracture. Jenny reports she was sitting in a chair reaching for something and next found herself on the floor. she has had right hip pain since. imaging with CT in the ER last night shows a questionable right hip fracture. She is now pending MRI this am. biggest complaint is right hip pain if she moves. Objective: Vital Signs Temp Pulse Resp BP Pulse Ox 98.7 F 78 16 128/56 99 07/23/19 07:00 07/23/19 07:00 07/23/19 07:00 07/23/19 07:00 07/23/19 07:00 sitting up in nad perr eomi op moist ii/vi connie CTA anteriorly soft nt +Bs no le edema pain on movement of right hip, warm A+O x 3, nonfocal neurological exam Laboratory Results - last 24 hr 07/22/19 07/22/19 07/22/19 19:00 19:05 19:05 WBC 5.9 RBC 3.77 Hgb 11.7 L Hct 35 MCV 93 MCH 31 MCHC 33 RDW 17 H Plt Count 123 L MPV 9.8 Neut % (Auto) 58.4 Lymph % (Auto) 26.1 [place] % (Auto) 14.3 Eos % (Auto) 0.4 Baso % (Auto) 0.8 Absolute Neuts (auto) 3.5 Absolute Lymphs (auto) 1.6 Absolute Monos (auto) 0.8 Absolute Eos (auto) 0.0 Absolute Basos (auto) 0.1 Absolute Nucleated RBC 0.0 Nucleated RBC % 0.1 INR (Anticoag Therapy) 1.04 APTT 35.6 Sodium Potassium Chloride Carbon Dioxide Anion Gap BUN Creatinine Est GFR ( Amer) Est GFR (Non-Af Amer) BUN/Creatinine Ratio Glucose Lactic Acid Calcium Total Bilirubin AST ALT Alkaline Phosphatase Troponin I Total Protein Albumin Globulin Albumin/Globulin Ratio Urine Color Yellow Urine Appearance Cloudy Urine pH 6.0 Ur Specific [place] 1.019 Urine Protein Negative Urine Ketones Negative Urine Blood Negative Urine Nitrate Negative Urine Bilirubin Negative Urine Urobilinogen Negative Ur Leukocyte Esterase Negative Urine Glucose Negative Blood Type Antibody Screen 07/22/19 07/22/19 07/22/19 19:05 19:05 19:05 WBC RBC Hgb Hct MCV MCH MCHC RDW Plt Count MPV Neut % (Auto) Lymph % (Auto) [place] % (Auto) Eos % (Auto) Baso % (Auto) Absolute Neuts (auto) Absolute Lymphs (auto) Absolute Monos (auto) Absolute Eos (auto) Absolute Basos (auto) Absolute Nucleated RBC Nucleated RBC % INR (Anticoag Therapy) APTT Sodium 141 Potassium 3.8 Chloride 110 Carbon Dioxide 25 Anion Gap 6 BUN 18 Creatinine 1.06 H Est GFR ( Amer) 59.1 Est GFR (Non-Af Amer) 48.8 BUN/Creatinine Ratio 17.0 Glucose 107 H Lactic Acid 1.1 Calcium 8.8 Total Bilirubin 0.50 AST 11 L ALT 11 Alkaline Phosphatase 59 Troponin I 0.03 Total Protein 5.3 L Albumin 3.2 Globulin 2.1 Albumin/Globulin Ratio 1.5 Urine Color Urine Appearance Urine pH Ur Specific [place] Urine Protein Urine Ketones Urine Blood Urine Nitrate Urine Bilirubin Urine Urobilinogen Ur Leukocyte Esterase Urine Glucose Blood Type B Positive Antibody Screen Negative 07/23/19 07/23/19 05:59 05:59 WBC 4.4 RBC 3.23 L Hgb 10.4 L Hct 30 L MCV 93 MCH 32 H MCHC 35 RDW 16 H Plt Count 107 L MPV 10.4 Neut % (Auto) 43.6 Lymph % (Auto) 33.6 [place] % (Auto) 19.9 Eos % (Auto) 1.5 Baso % (Auto) 1.4 Absolute Neuts (auto) 1.9 Absolute Lymphs (auto) 1.5 Absolute Monos (auto) 0.9 H Absolute Eos (auto) 0.1 Absolute Basos (auto) 0.1 Absolute Nucleated RBC 0.0 Nucleated RBC % 0.0 INR (Anticoag Therapy) APTT Sodium 140 Potassium 3.6 Chloride 111 Carbon Dioxide 24 Anion Gap 5 BUN 14 Creatinine 0.87 Est GFR ( Amer) 74.2 Est GFR (Non-Af Amer) 61.3 BUN/Creatinine Ratio 16.1 Glucose 90 Lactic Acid Calcium 8.4 L Total Bilirubin AST ALT Alkaline Phosphatase Troponin I Total Protein Albumin Globulin Albumin/Globulin Ratio Urine Color Urine Appearance Urine pH Ur Specific [place] Urine Protein Urine Ketones Urine Blood Urine Nitrate Urine Bilirubin Urine Urobilinogen Ur Leukocyte Esterase Urine Glucose Blood Type Antibody Screen Acetaminophen (Tylenol Tab*) 650 mg PO Q4H PRN PRN Reason: MILD PAIN or TEMP > 100.4 Ascorbic Acid (Vitamin C Tab*) 1,000 mg PO DAILY [facility] Calcium/Vitamin D (Oscal D Tab 250/125*) 1 tab PO DAILY [facility] Carboxymethylcellulose/Glycerin (Refresh Optive Gel Eye Gel) 1 applic BOTH EYES BEDTIME [facility] Dexamethasone (Decadron Tab*) 12 mg PO Sa [facility] Docusate Sodium (Colace Cap*) 100 mg PO BID [facility] Enoxaparin Sodium (Lovenox(*)) 40 mg SUBCUT BEDTIME [facility] Last Admin: 07/23/19 00:34 Dose: 40 mg Latanoprost (Xalatan 0.005%*) 1 drop BOTH EYES QPM [facility] Nft* (Methyl Salicylate/Menthol [ Pain Relieving 1%-15 % Cream] 1 Cre) 1 cre TOPICAL DAILY PRN PRN Reason: PAIN Pto: (Pazeo 0.7% Ophthalmic Solution) Nf Med 1 drop BOTH EYES QAM [facility] Ondansetron HCl (Zofran Inj*) 4 mg IV Q4H PRN PRN Reason: NAUSEA/VOMITING Tramadol HCl (Ultram*) 50 mg PO Q8H PRN PRN Reason: PAIN - MODERATE Assessment: 88 yo F w well controlled MM/plasma cell leukemia with a likely right femur fracture after mechanical fall. I have discussed this with Dr. Farias. Her MM is under excellent control and so this in itself is NOT a contraindication to surgery. She herself is nervous about the idea of an operation but would not want to be permanently bed bound. Plan: -MRI right hip w and wo contrast KATHARINE -ortho consult -nonweight bearing for now hold revlimid (today is day 2) for now -hold ASA lovenox dvt prophylaxis full code
[2019-07-23] MEDS ORDERED: Influenza VAC *QUAD* 2019-20* 0.5 ML SYRINGE IM ONE (09:00)
[2019-07-23] MEDS ORDERED: LENALIDOMIDE 15 MG PO SCH (09:00)
[2019-07-23] MEDS ORDERED: Pneumococcal *Vac Polyvalent 0.5 ML VIAL IM ONE (09:00)
[2019-07-23] MEDS ORDERED: Aspirin EC TAB* 81 MG TAB.EC PO SCH (09:00)
[2019-07-23] MEDS: Calcium/Vitamin D TAB 250/125* TAB PO SCH (09:19)
[2019-07-23] MEDS: Ascorbic Acid TAB* 500 MG PO SCH (09:20)
[2019-07-23] MEDS: Docusate CAP* 100 MG PO SCH ×2 (09:20→20:39)
[2019-07-23] MEDS: Acetaminophen TAB* 325 MG PO PRN (10:31)
[2019-07-23] MEDS: OLOPATADINE 0.7% BOTH EYES SCH (11:23)
[2019-07-23] MEDS ORDERED: Gadoteridol* (CONTRAST) 279.3 MG/ML 10 ML IV ONE (11:31)
--- NOTE | 2019-07-23 14:10 | PN ---
Progress Note - Progress Note Date of Service: 07/23/19 SOAP: Subjective: CC: Right hip pain HPI: 88 yo female, h/o multiple myeloma, fell at home yesterday. Brought to the ED, x-rays negative for hip fx, CT scan questionable. Admitted for pain control last night and MRI done this AM. Evidence of a nondisplaced IT fracture. Objective: Elderly female, NAD, dozing off. Leg length equal. Assessment: Right nondisplaced hip fx Plan: D/w son surgery and non-operative treatment. Risks of surgery such as infection, scar, DVT, higher risk of DVT due to her MM and infection were some of the risks discussed. He had multiple questions about surgery and all were answered, and he was pleased with the information. She is added on the OR schedule for tomorrow afternoon at 1 PM.
[2019-07-23] MEDS ORDERED: Buffered Lidocaine 1% SYRIN* 1 ML/SYRINGE INTRADERM ONE (15:39)
--- NOTE | 2019-07-23 15:51 | PN ---
Subjective Date of Service: 07/23/19 Interval History: HOSPITALIST PROGRESS NOTE Patient seen and examined at bedside. She states she feels tired, but has no other complaints. Denies chest pain, palpitations, dyspnea. States she can do light chores at home, but her son takes care of the "heavier stuff". Family History: Unchanged from Admission Social History: Unchanged from Admission Past Medical History: Unchanged from Admission Objective Active Medications: Acetaminophen (Tylenol Tab*) 650 mg PO Q4H PRN PRN Reason: MILD PAIN or TEMP > 100.4 Last Admin: 07/23/19 10:31 Dose: 650 mg Ascorbic Acid (Vitamin C Tab*) 1,000 mg PO DAILY [facility] Last Admin: 07/23/19 09:20 Dose: 1,000 mg Calcium/Vitamin D (Oscal D Tab 250/125*) 1 tab PO DAILY [facility] Last Admin: 07/23/19 09:19 Dose: 1 tab Carboxymethylcellulose/Glycerin (Refresh Optive Gel Eye Gel) 1 applic BOTH EYES BEDTIME [facility] Dexamethasone (Decadron Tab*) 12 mg PO Sa [facility] Docusate Sodium (Colace Cap*) 100 mg PO BID [facility] Last Admin: 07/23/19 09:20 Dose: 100 mg Enoxaparin Sodium (Lovenox(*)) 40 mg SUBCUT BEDTIME [facility] Stop: 07/23/19 23:59 Last Admin: 07/23/19 00:34 Dose: 40 mg Famotidine (Pepcid Iv*) 20 mg IV ONCE ONE Stop: 07/24/19 10:01 Lactated Ringer's (Lactated Ringers 1000 Ml Bag*) 1,000 mls @ 125 mls/hr IV PER RATE [facility] Latanoprost (Xalatan 0.005%*) 1 drop BOTH EYES QPM [facility] Lidocaine/Sodium Bicarbonate (Buffered Lidocaine 1% Syrin*) 0.2 ml INTRADERM ONCE ONE Stop: 07/23/19 15:40 Multi-Ingredient Liniment/Rub (Harrison Hickey*) 1 applic TOPICAL DAILY PRN PRN Reason: PAIN Pto: (Pazeo 0.7% Ophthalmic Solution) Nf Med 1 drop BOTH EYES QAM [facility] Last Admin: 07/23/19 11:23 Dose: Not Given Ondansetron HCl (Zofran Inj*) 4 mg IV Q4H PRN PRN Reason: NAUSEA/VOMITING Tramadol HCl (Ultram*) 50 mg PO Q8H PRN PRN Reason: PAIN - MODERATE Vital Signs - 8 hr 07/23/19 08:00 Respiratory 16 Rate Oxygen Devices in Use Now: None Appearance: Elderly lady lying in bed in NAD. Eyes: No Scleral Icterus Ears/Nose/Mouth/Throat: Mucous Membranes Moist Neck: Trachea Midline Respiratory: Symmetrical Chest Expansion and Respiratory Effort, Clear to Auscultation Cardiovascular: RRR - Normal S1 and S2, +SM Abdominal: NL Sounds; No Tenderness; No Distention Neurological: Alert and Oriented x 3, NL Muscle Strength and Tone Result Diagrams: 07/23/19 05:59 07/23/19 05:59 Assess/Plan/Problems-Billing Assessment: Mrs Barrera is an 88yo F with PMH of multiple myeloma, glaucoma, who presented to ED after a fall, found to have a right non displaced hip fracture. - Patient Problems (1) Hip fracture Comment: - Patient has no c/o chest pain, EKG showed NSR at 90bpm with LBBB ( unchanged from prior in 2017). - RCRI is 0 predicting 0.4-0.5% risk of MACE. - NSQIP calculator shows a higher risk then average for complications, including risk of discharge to SNF. - Echo done 10/16/18 showed EF 50-55% with severe dynamic outflow tract obstruction, new when compared to prior from 2017 - Cardiology consult requested. - Optimization for surgery pending Cardiology input.
[2019-07-23] MEDS ORDERED: Potassium Chloride* LIQUID 20 MEQ/15 ML UDC PO ONE (17:04)
[2019-07-23] MEDS: Latanoprost 0.005%* 2.5 ml BTL BOTH EYES SCH (17:59)
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
[2019-07-23] MEDS: Carboxymethylcellulose/Glyceri 10 ML OPHTH.GEL lubricant eye gel BOTH EYES SCH (20:41)
[2019-07-24] MEDS ORDERED: Lactated Ringers 1000 ML Bag* 1,000 ML IV SCH (06:00)
[2019-07-24] MEDS: Ascorbic Acid TAB* 500 MG PO SCH (07:50)
[2019-07-24] MEDS: Docusate CAP* 100 MG PO SCH ×2 (07:50→22:25)
[2019-07-24] MEDS: Calcium/Vitamin D TAB 250/125* TAB PO SCH (07:50)
[2019-07-24] MEDS: OLOPATADINE 0.7% BOTH EYES SCH (08:08)
[2019-07-24] MEDS ORDERED: Famotidine IV* 10 MG/ML 2 ML (20 mg) IV ONE (10:00)
--- NOTE | 2019-07-24 12:55 | PN ---
Progress Note - Progress Note Date of Service: 07/24/19 SOAP: Subjective: [Tired this morning. Reports no pain in the R hip. She is anticipating surgery later today.] Objective: [ Vital Signs: Temp Pulse Resp BP Pulse Ox 98.2 F 72 20 132/44 98 07/24/19 11:00 07/24/19 11:00 07/24/19 11:00 07/24/19 11:00 07/24/19 11:00 Acetaminophen (Tylenol Tab*) 650 mg PO Q4H PRN PRN Reason: MILD PAIN or TEMP > 100.4 Last Admin: 07/23/19 10:31 Dose: 650 mg Ascorbic Acid (Vitamin C Tab*) 1,000 mg PO DAILY [facility] Last Admin: 07/24/19 07:50 Dose: Not Given Calcium/Vitamin D (Oscal D Tab 250/125*) 1 tab PO DAILY [facility] Last Admin: 07/24/19 07:50 Dose: Not Given Carboxymethylcellulose/Glycerin (Refresh Optive Gel Eye Gel) 1 applic BOTH EYES BEDTIME [facility] Last Admin: 07/23/19 20:41 Dose: 1 drop Dexamethasone (Decadron Tab*) 12 mg PO Sa [facility] Docusate Sodium (Colace Cap*) 100 mg PO BID [facility] Last Admin: 07/24/19 07:50 Dose: Not Given Lactated Ringer's (Lactated Ringers 1000 Ml Bag*) 1,000 mls @ 125 mls/hr IV PER RATE [facility] Last Admin: 07/24/19 05:42 Dose: 125 mls/hr Latanoprost (Xalatan 0.005%*) 1 drop BOTH EYES QPM [facility] Last Admin: 07/23/19 17:59 Dose: 1 drop Multi-Ingredient Liniment/Rub (Harrison Hickey*) 1 applic TOPICAL DAILY PRN PRN Reason: PAIN Pto: (Pazeo 0.7% Ophthalmic Solution) Nf Med 1 drop BOTH EYES QAM [facility] Last Admin: 07/24/19 08:08 Dose: 1 drop Ondansetron HCl (Zofran Inj*) 4 mg IV Q4H PRN PRN Reason: NAUSEA/VOMITING Tramadol HCl (Ultram*) 50 mg PO Q8H PRN PRN Reason: PAIN - MODERATE Last Admin: 07/24/19 03:19 Dose: 50 mg Exam: Gen: 88 yo female who appears tired, but carries a conversation and is in NAD. HEENT: MMM CV: RRR, 2-3/6 DEISI Resp: CTA Abd: soft, nonTTP Ext: no edema] Assessment: [This is an 88 yo female with MM and excellent disease control on maintenance revlimid who unfortunately experienced a fall resulting in a R hip fracture. ] Plan: [1. R hip fx - plan for ORIF with Dr Farias later today 2. LV outflow obstruction/diastolic dysfunction - carefully monitor fluid status post operatively - cardiology consultation appreciated 3. MM - holding Revlimid, will resume postoperatively when skin incision appears well healed - reviewed case with Dr Philip regarding the potential need for postoperative RT - given her excellent systemic control and lack of a large lytic lesion in the region there is not an absolute need for adjuvant RT but could be offered - he would suggest 5 fractions - will discuss with patient/family postoperatively 4. DVT prophylaxis - Lovenox SQ daily to start POD 1 5. FULL CODE Dispo: pending R ORIF, discharge planning per performance status postoperatively - will request PT consult]
[2019-07-24] MEDS ORDERED: KETAMINE HCL* 50 MG/ML 10 ML VIAL ONE (13:11)
[2019-07-24] MEDS ORDERED: Midazolam* 1 MG/ML 5 ML VIAL (5 MG) ONE (13:11)
[2019-07-24] MEDS ORDERED: fentaNYL* 50 MCG/ML 2 ML VIAL (100 MCG VIAL) ONE ×3 (13:11→17:44)
[2019-07-24] MEDS ORDERED: Buffered Lidocaine 1% SYRIN* 1 ML/SYRINGE INTRADERM ONE (13:54)
[2019-07-24] MEDS ORDERED: Etomidate* 2 MG/ML 10 ML VIAL ONE (14:38)
[2019-07-24] MEDS ORDERED: Lidocaine 2% PF * 5 ML VIAL ONE (14:38)
[2019-07-24] MEDS ORDERED: Phenylephrine 10 MG/ML VIAL* 1 ML VIAL ONE (14:39)
[2019-07-24] MEDS ORDERED: Bupivacaine 0.25% W/EPI* 10 ML SDV ONE ×2 (14:41→16:12)
[2019-07-24] MEDS ORDERED: ceFAZolin 2 GM PREMIX in ORs 2 GM/50 ML BAG ONE (14:48)
[2019-07-24] MEDS ORDERED: Naloxone* 0.4 MG/ML 1 ML VIAL IV PRN (16:17)
[2019-07-24] MEDS ORDERED: oxyCODONE/Acetamin 5/325 MG* TAB PO PRN (16:17)
[2019-07-24] MEDS ORDERED: DiMENhydriNATE IV* 50 MG/ML VIAL IV PUSH PRN (16:17)
[2019-07-24] MEDS ORDERED: HYDROcodone/ACETAMIN 5-325 MG* 1 TAB PO PRN ×2 (16:17→20:39)
[2019-07-24] MEDS ORDERED: Ondansetron INJ* 2 MG/ML VIAL ONE (16:55)
[2019-07-24] MEDS ORDERED: DiMENhydriNATE IV* 50 MG/ML VIAL ONE (17:44)
[2019-07-24] MEDS: fentaNYL* 50 MCG/ML 2 ML VIAL (100 MCG VIAL) IV PRN ×4 (18:00→19:15)
[2019-07-24] MEDS ORDERED: Morphine INJ* 2 MG/ML 1 ML SYRINGE (TWO MG - NEW SYRINGE VERSION) IV PRN (20:39)
[2019-07-24] MEDS ORDERED: Ondansetron INJ* 2 MG/ML VIAL IV PRN (20:40)
[2019-07-24] MEDS: Latanoprost 0.005%* 2.5 ml BTL BOTH EYES SCH (22:14)
[2019-07-24] MEDS: Carboxymethylcellulose/Glyceri 10 ML OPHTH.GEL lubricant eye gel BOTH EYES SCH (22:25)
[2019-07-25] MEDS: ceFAZolin 1 GM* X 3 DOSES POST-OP Q8H (AddVan) IVPB SCH ×6 (00:07→16:18)
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
[2019-07-25 05:44] LABS: Hematocrit 27 % (35-47); Hemoglobin 9.2 g/dL (12.0-16.0); Mean Corpuscular HGB Conc 34 g/dL (31-36); Mean Corpuscular Hemoglobin 32 pg (27-31); Mean Corpuscular Volume 94 fL (80-97); Mean Platelet Volume 10.1 fL (7.4-10.4); Platelet Count 85 10^3/uL (150-450); Red Blood Count 2.91 10^6 /uL (3.70-4.87); Red Cell Distribution Width 17 % (10-15); White Blood Count 4.5 10^3/uL (3.5-10.8)
[2019-07-25 06:02] LABS: Albumin 2.6 g/dL (3.2-5.2); Albumin/Globulin Ratio 1.4 (1-3); BUN/Creatinine Ratio 10.5 (8-20); Calcium 7.9 mg/dL (8.6-10.3); EGFR African American 59.7 (>60); EGFR Non-African American 49.3 (>60); Globulin 1.8 g/dL (2-4); Total Protein 4.4 g/dL (6.4-8.9)
[2019-07-25] MEDS: Docusate CAP* 100 MG PO SCH ×2 (08:44→20:22)
[2019-07-25] MEDS: Calcium/Vitamin D TAB 250/125* TAB PO SCH (08:45)
[2019-07-25] MEDS: Ascorbic Acid TAB* 500 MG PO SCH (08:45)
[2019-07-25] MEDS ORDERED: Dexamethasone TAB* 4 MG PO SCH (09:00)
[2019-07-25] MEDS: OLOPATADINE 0.7% BOTH EYES SCH (09:07)
[2019-07-25] MEDS: Enoxaparin(*) 40 MG/0.4 ML SYR SUBCUT SCH (09:07)
--- NOTE | 2019-07-25 10:55 | PN ---
Progress Note - Progress Note Date of Service: 07/25/19 SOAP: Subjective: [Doing well after surgery. Little pain. No CP/SOB. Appetite ok. No nausea.] Objective: [ Vital Signs: Temp Pulse Resp BP Pulse Ox 98.3 F 84 20 107/41 96 07/25/19 08:15 07/25/19 08:15 07/25/19 10:15 07/25/19 08:15 07/25/19 08:15 Acetaminophen (Tylenol Tab*) 650 mg PO Q4H PRN PRN Reason: MILD PAIN or TEMP > 100.4 Last Admin: 07/23/19 10:31 Dose: 650 mg Hydrocodone Bitart/Acetaminophen ([place] 5-325 Tab*) 2 tab PO Q4H PRN PRN Reason: PAIN - MODERATE Last Admin: 07/25/19 04:31 Dose: 2 tab Ascorbic Acid (Vitamin C Tab*) 1,000 mg PO DAILY [facility] Last Admin: 07/25/19 08:45 Dose: 1,000 mg Calcium/Vitamin D (Oscal D Tab 250/125*) 1 tab PO DAILY [facility] Last Admin: 07/25/19 08:45 Dose: 1 tab Carboxymethylcellulose/Glycerin (Refresh Optive Gel Eye Gel) 1 applic BOTH EYES BEDTIME [facility] Last Admin: 07/24/19 22:25 Dose: Not Given Docusate Sodium (Colace Cap*) 100 mg PO BID [facility] Last Admin: 07/25/19 08:44 Dose: 100 mg Enoxaparin Sodium (Lovenox(*)) 40 mg SUBCUT Q24H [facility] Last Admin: 07/25/19 09:07 Dose: 40 mg Cefazolin Sodium 1 gm/ Sodium (Chloride) 50 mls @ 200 mls/hr IVPB Q8H [facility] Stop: 07/25/19 15:44 Last Admin: 07/25/19 09:52 Dose: 200 mls/hr Latanoprost (Xalatan 0.005%*) 1 drop BOTH EYES QPM [facility] Last Admin: 07/24/19 22:14 Dose: Not Given Morphine Sulfate (Morphine Inj (Syringe))*) 2 mg IV Q1H PRN PRN Reason: PAIN - SEVERE Multi-Ingredient Liniment/Rub (Harrison Hickey*) 1 applic TOPICAL DAILY PRN PRN Reason: PAIN Pto: ([place] 0.7% Ophthalmic Solution) Nf Med 1 drop BOTH EYES QAM [facility] Last Admin: 07/25/19 09:07 Dose: Not Given Ondansetron HCl (Zofran Inj*) 4 mg IV Q4H PRN PRN Reason: NAUSEA/VOMITING Ondansetron HCl (Zofran Inj*) 4 mg IV Q6H PRN PRN Reason: NAUSEA/VOMITING Polyethylene Glycol/Electrolytes (Miralax*) 17 gm PO DAILY [facility] Senna (Senokot 8.6 Mg Tab*) 1 tab PO BID [facility] Laboratory Results - last 24 hr 07/25/19 07/25/19 04:49 04:49 WBC 4.5 RBC 2.91 L Hgb 9.2 L Hct 27 L MCV 94 MCH 32 H MCHC 34 RDW 17 H Plt Count 85 L MPV 10.1 Sodium 136 Potassium 4.0 Chloride 107 Carbon Dioxide 22 Anion Gap 7 BUN 11 Creatinine 1.05 H Est GFR ( Amer) 59.7 Est GFR (Non-Af Amer) 49.3 BUN/Creatinine Ratio 10.5 Glucose 133 H Calcium 7.9 L Total Bilirubin 1.00 AST 13 ALT 9 Alkaline Phosphatase 43 Total Protein 4.4 L Albumin 2.6 L Globulin 1.8 L Albumin/Globulin Ratio 1.4 Exam: Gen: 88 yo female who appears tired, but carries a conversation and is in NAD. Accompanied by her son HEENT: MMM CV: RRR, 3/6 DEISI Resp: CTA Abd: soft, nonTTP Ext: no edema, clean dressing over R hip/leg] Assessment: [This is an 88 yo female with MM and excellent disease control on maintenance revlimid who unfortunately experienced a fall resulting in a R hip fracture. She is now s/p ORIF and appears to be doing well.] Plan: [1. R hip fx - s/p ORIF, POD#1 2. LV outflow obstruction/diastolic dysfunction - appears euvolemic, cont to carefully monitor fluid status post operatively - cardiology consultation appreciated 3. MM - holding Revlimid, will resume postoperatively when skin incision appears well healed - reviewed case with Dr Philip regarding the potential need for postoperative RT - given her excellent systemic control and lack of a large lytic lesion in the region there is not an absolute need for adjuvant RT but could be offered - he would suggest 5 fractions - will discuss with patient/family postoperatively 4. DVT prophylaxis - Lovenox SQ daily 5. FULL CODE Dispo: cont inpatient care. PMRU consult.
--- NOTE | 2019-07-25 11:13 | PN ---
Progress Note - Progress Note Date of Service: 07/25/19 SOAP: Subjective: Pt is doing well. pain is controlled. Denies F/C, CP/SOB or calf pain. Objective: PE- 88 y/o WDWN F NAD, A&Ox3 RLE- dressing c/d/i, calf soft NT, +DF/PF ankle, +2 Dp pulse, SILT distally Vital Signs Temp Pulse Resp BP Pulse Ox 98.3 F 84 20 107/41 96 07/25/19 08:15 07/25/19 08:15 07/25/19 10:15 07/25/19 08:15 07/25/19 08:15 Laboratory Results - last 24 hr 07/25/19 07/25/19 04:49 04:49 WBC 4.5 RBC 2.91 L Hgb 9.2 L Hct 27 L MCV 94 MCH 32 H MCHC 34 RDW 17 H Plt Count 85 L MPV 10.1 Sodium 136 Potassium 4.0 Chloride 107 Carbon Dioxide 22 Anion Gap 7 BUN 11 Creatinine 1.05 H Est GFR ( Amer) 59.7 Est GFR (Non-Af Amer) 49.3 BUN/Creatinine Ratio 10.5 Glucose 133 H Calcium 7.9 L Total Bilirubin 1.00 AST 13 ALT 9 Alkaline Phosphatase 43 Total Protein 4.4 L Albumin 2.6 L Globulin 1.8 L Albumin/Globulin Ratio 1.4 Assessment: POD 1 S/P Right hip cannulated screws for tx of nondisplaced intertrochanteric fx Plan: Cont PT/OT- WBAT Cont pain management Complete post op abx Lovenox for DVT prophylaxis Possible DC to PMRU Saturday or Saturday
[2019-07-25] MEDS: Polyethylene Glycol 3350* 17 GM PACKET PO SCH (11:37)
[2019-07-25] MEDS ORDERED: NS 0.9% 500 ML* 500 ML IV ONE (16:00)
[2019-07-25] MEDS: NS 0.9% 1000 ML** 1,000 ML IV SCH (16:17)
[2019-07-25] MEDS: Senna TAB 8.6 mg* TAB PO SCH (20:22)
[2019-07-25] MEDS: Latanoprost 0.005%* 2.5 ml BTL BOTH EYES SCH (20:25)
[2019-07-25] MEDS: Carboxymethylcellulose/Glyceri 10 ML OPHTH.GEL lubricant eye gel BOTH EYES SCH (20:52)
[2019-07-26] MEDS: Acetaminophen TAB* 325 MG PO PRN ×3 (02:50→22:09)
[2019-07-26] MEDS: NS 0.9% 1000 ML** 1,000 ML IV SCH ×2 (05:55→23:36)
[2019-07-26 06:02] LABS: ABS Eosinophils 0.1 10^3/ul (0-0.6); ABS Monocytes 0.6 10^3/ul (0-0.8); Eosinophil % 3.5 %; Hematocrit 25 % (35-47); Hemoglobin 8.4 g/dL (12.0-16.0); Lymphocyte % 26.7 %; Mean Corpuscular HGB Conc 33 g/dL (31-36); Mean Corpuscular Hemoglobin 31 pg (27-31); Mean Corpuscular Volume 94 fL (80-97); Mean Platelet Volume 9.8 fL (7.4-10.4); Nucleated Red Blood Cells % 0.1; Platelet Count 74 10^3/uL (150-450); Red Blood Count 2.67 10^6 /uL (3.70-4.87); Red Cell Distribution Width 17 % (10-15); White Blood Count 3.7 10^3/uL (3.5-10.8)
[2019-07-26 06:21] LABS: Albumin 2.3 g/dL (3.2-5.2); Albumin/Globulin Ratio 1.2 (1-3); BUN/Creatinine Ratio 12.6 (8-20); Calcium 7.6 mg/dL (8.6-10.3); EGFR Non-African American 50.5 (>60); Globulin 1.9 g/dL (2-4); Potassium 3.7 mmol/L (3.5-5.0); Total Bilirubin 0.8 mg/dL (0.2-1.0); Total Protein 4.2 g/dL (6.4-8.9)
--- NOTE | 2019-07-26 09:05 | PN ---
Progress Note - Progress Note Date of Service: 07/26/19 SOAP: Subjective: Pt is doing well. Pain is controlled. Denies Cp/SOB, calf pain, F/C. Objective: PE- 88 y/o WDWN F NAD RLE- dressing changed, inc c/d/i, no warmth erythema or sign of infection, +DF/ PF ankle, calf soft NT, +DF/PF ankle, +2 Dp pulse, SILT distally Vital Signs Temp Pulse Resp BP Pulse Ox 98.1 F 82 17 107/39 97 07/26/19 07:33 07/26/19 07:33 07/26/19 07:33 07/26/19 07:33 07/26/19 07:33 Active Medications Generic Name Dose Route Start Last Admin Trade Name Freq PRN Reason Stop Dose Admin Acetaminophen 650 mg 07/22/19 23:12 07/26/19 02:50 Tylenol Tab* PO 325 mg Q4H PRN Administration MILD PAIN or TEMP > 100.4 Hydrocodone Bitart/Acetaminophen 2 tab 07/24/19 20:39 07/25/19 04:31 [place] 5-325 Tab* PO 2 tab Q4H PRN Administration PAIN - MODERATE Ascorbic Acid 1,000 mg 07/23/19 09:00 07/25/19 08:45 Vitamin C Tab* PO 1,000 mg DAILY [facility] Administration Calcium/Vitamin D 1 tab 07/23/19 09:00 07/25/19 08:45 Oscal D Tab 250/125* PO 1 tab DAILY [facility] Administration Carboxymethylcellulose/Glycerin 1 applic 07/23/19 21:00 07/25/19 20:52 Refresh Optive Gel Eye Gel BOTH EYES 1 drop BEDTIME [facility] Administration Docusate Sodium 100 mg 07/23/19 09:00 07/25/19 20:22 Colace Cap* PO 100 mg BID [facility] Administration Enoxaparin Sodium 40 mg 07/25/19 09:00 07/25/19 09:07 Lovenox(*) SUBCUT 40 mg Q24H [facility] Administration Sodium Chloride 1,000 mls @ 75 mls/hr 07/25/19 15:30 07/26/19 05:55 Ns 0.9% 1000 Ml IV 75 mls/hr .PER RATE [facility] Administration Latanoprost 1 drop 07/25/19 21:00 07/25/19 20:25 Xalatan 0.005%* BOTH EYES 1 drop BEDTIME [facility] Administration Morphine Sulfate 2 mg 07/24/19 20:39 Morphine Inj (Syringe))* IV Q1H PRN PAIN - SEVERE Multi-Ingredient Liniment/Rub 1 applic 07/23/19 11:00 Harrison Hickey* TOPICAL DAILY PRN PAIN Pto: (Pazeo 0.7% 1 drop 07/23/19 09:00 07/25/19 09:07 Ophthalmic Solution) BOTH EYES Not Given Nf Med QAM [facility] Ondansetron HCl 4 mg 07/22/19 23:12 Zofran Inj* IV Q4H PRN NAUSEA/VOMITING Ondansetron HCl 4 mg 07/24/19 20:40 Zofran Inj* IV Q6H PRN NAUSEA/VOMITING Polyethylene Glycol/Electrolytes 17 gm 07/25/19 11:00 07/25/19 11:37 Miralax* PO 17 gm DAILY [facility] Administration Senna 1 tab 07/25/19 21:00 07/25/19 20:22 Senokot 8.6 Mg Tab* PO 1 tab BID [facility] Administration Assessment: POD 2 S/P Right hip cannulated screws for tx of nondisplaced intertrochanteric fx Plan: Cont PT/OT- WBAT Cont pain management Complete post op abx Lovenox for DVT prophylaxis Possible DC to PMRU when medically stable
[2019-07-26] MEDS: Enoxaparin(*) 40 MG/0.4 ML SYR SUBCUT SCH (09:11)
[2019-07-26] MEDS: Calcium/Vitamin D TAB 250/125* TAB PO SCH (09:12)
[2019-07-26] MEDS: Docusate CAP* 100 MG PO SCH ×2 (09:13→22:09)
[2019-07-26] MEDS: Polyethylene Glycol 3350* 17 GM PACKET PO SCH (09:13)
[2019-07-26] MEDS: Ascorbic Acid TAB* 500 MG PO SCH (09:13)
[2019-07-26] MEDS: Senna TAB 8.6 mg* TAB PO SCH ×2 (09:13→22:10)
[2019-07-26] MEDS: OLOPATADINE 0.7% BOTH EYES SCH (09:15)
--- NOTE | 2019-07-26 10:52 | PN ---
Progress Note - Progress Note Date of Service: 07/26/19 SOAP: Subjective: [Feeling ok this morning. Just finished working with PT. Pain is reasonably well controlled. Urine output was noted to be low yesterday. Remained normotensive. Urine output has improved with a fluid bolus and resumption of maintenance fluids. Denies CP or SOB.] Objective: [ Vital Signs: Temp Pulse Resp BP Pulse Ox 98.1 F 82 16 107/39 97 07/26/19 07:33 07/26/19 07:33 07/26/19 09:55 07/26/19 07:33 07/26/19 07:33 Acetaminophen (Tylenol Tab*) 650 mg PO Q4H PRN PRN Reason: MILD PAIN or TEMP > 100.4 Last Admin: 07/26/19 09:12 Dose: 325 mg Hydrocodone Bitart/Acetaminophen ([place] 5-325 Tab*) 2 tab PO Q4H PRN PRN Reason: PAIN - MODERATE Last Admin: 07/25/19 04:31 Dose: 2 tab Ascorbic Acid (Vitamin C Tab*) 1,000 mg PO DAILY [facility] Last Admin: 07/26/19 09:13 Dose: 1,000 mg Calcium/Vitamin D (Oscal D Tab 250/125*) 1 tab PO DAILY [facility] Last Admin: 07/26/19 09:12 Dose: 1 tab Carboxymethylcellulose/Glycerin (Refresh Optive Gel Eye Gel) 1 applic BOTH EYES BID [facility] Docusate Sodium (Colace Cap*) 100 mg PO BID [facility] Last Admin: 07/26/19 09:13 Dose: 100 mg Enoxaparin Sodium (Lovenox(*)) 40 mg SUBCUT Q24H [facility] Last Admin: 07/26/19 09:11 Dose: 40 mg Sodium Chloride (Ns 0.9% 1000 Ml) 1,000 mls @ 75 mls/hr IV .PER RATE [facility] Last Admin: 07/26/19 05:55 Dose: 75 mls/hr Latanoprost (Xalatan 0.005%*) 1 drop BOTH EYES BEDTIME [facility] Last Admin: 07/25/19 20:25 Dose: 1 drop Morphine Sulfate (Morphine Inj (Syringe))*) 2 mg IV Q1H PRN PRN Reason: PAIN - SEVERE Multi-Ingredient Liniment/Rub (Harrison Hickey*) 1 applic TOPICAL DAILY PRN PRN Reason: PAIN Pto: (Pazeo 0.7% Ophthalmic Solution) Nf Med 1 drop BOTH EYES QAM [facility] Last Admin: 07/26/19 09:15 Dose: 1 drop Ondansetron HCl (Zofran Inj*) 4 mg IV Q4H PRN PRN Reason: NAUSEA/VOMITING Ondansetron HCl (Zofran Inj*) 4 mg IV Q6H PRN PRN Reason: NAUSEA/VOMITING Polyethylene Glycol/Electrolytes (Miralax*) 17 gm PO DAILY [facility] Last Admin: 07/26/19 09:13 Dose: 17 gm Senna (Senokot 8.6 Mg Tab*) 1 tab PO BID [facility] Last Admin: 07/26/19 09:13 Dose: 1 tab Laboratory Results - last 24 hr 07/26/19 07/26/19 05:51 05:51 WBC 3.7 RBC 2.67 L Hgb 8.4 L Hct 25 L MCV 94 MCH 31 MCHC 33 RDW 17 H Plt Count 74 L MPV 9.8 Neut % (Auto) 53.8 Lymph % (Auto) 26.7 [place] % (Auto) 15.2 Eos % (Auto) 3.5 Baso % (Auto) 0.8 Absolute Neuts (auto) 2.0 Absolute Lymphs (auto) 1.0 Absolute Monos (auto) 0.6 Absolute Eos (auto) 0.1 Absolute Basos (auto) 0.0 Absolute Nucleated RBC 0.0 Nucleated RBC % 0.1 Sodium 139 Potassium 3.7 Chloride 112 H Carbon Dioxide 23 Anion Gap 4 BUN 13 Creatinine 1.03 H Est GFR ( Amer) 61.0 Est GFR (Non-Af Amer) 50.5 BUN/Creatinine Ratio 12.6 Glucose 102 H Calcium 7.6 L Total Bilirubin 0.80 AST 12 L ALT 7 Alkaline Phosphatase 37 Total Protein 4.2 L Albumin 2.3 L Globulin 1.9 L Albumin/Globulin Ratio 1.2 Exam: Gen: 88 yo female who appears sitting up in a recliner and is in NAD. Accompanied by her son HEENT: MMM CV: RRR, 3/6 DEISI Resp: CTA Abd: soft, nonTTP Ext: no edema, clean dressing over R hip/leg] Assessment: [This is an 88 yo female with MM and excellent disease control on maintenance revlimid who unfortunately experienced a fall resulting in a R hip fracture. She is now s/p ORIF and appears to be doing well.] Plan: [1. R hip fx - s/p ORIF, POD#2 2. LV outflow obstruction/diastolic dysfunction - appears euvolemic clinically but urine output remains low but improving over last 24h, cont to carefully monitor fluid status - cont Olivia catheter today to monitor output with anticipation of dc'ing it tomorrow - preoperative cardiology consultation appreciated 3. Acute blood loss anemia - Hgb down to 8.4 today, which is at least partially dilutional - between her LV outflow obstruction and low urine output, recommended 1U PRBCs to maintain appropriate preload and support perfusion - pt was agreeable to transfusion today 3. MM - holding Revlimid, will resume postoperatively when skin incision appears well healed - reviewed case with Dr Philip regarding the potential need for postoperative RT - given her excellent systemic control and lack of a large lytic lesion in the region there is not an absolute need for adjuvant RT but could be offered - he would suggest 5 fractions - will discuss with patient/family at discharge 4. DVT prophylaxis - Lovenox SQ daily 5. FULL CODE Dispo: cont inpatient care. PMRU consult, anticipate readiness for dc to rehab tomorrow. Reviewed case with orthopedic group, she is appropriate for dc from their perspective.]
[2019-07-26] MEDS: Carboxymethylcellulose/Glyceri 10 ML OPHTH.GEL lubricant eye gel BOTH EYES SCH (22:14)
[2019-07-26] MEDS: Latanoprost 0.005%* 2.5 ml BTL BOTH EYES SCH (22:23)
[2019-07-27 09:55] LABS: ABS Eosinophils 0.1 10^3/ul (0-0.6); ABS Monocytes 0.5 10^3/ul (0-0.8); ABS Neutrophils 2.9 10^3/ul (1.5-7.7); Eosinophil % 2.5 %; Hematocrit 26 % (35-47); Hemoglobin 8.8 g/dL (12.0-16.0); Lymphocyte % 22.3 %; Mean Corpuscular HGB Conc 34 g/dL (31-36); Mean Corpuscular Hemoglobin 32 pg (27-31); Mean Corpuscular Volume 92 fL (80-97); Mean Platelet Volume 10.4 fL (7.4-10.4); Nucleated Red Blood Cells % 0.1; Platelet Count 77 10^3/uL (150-450); Red Blood Count 2.79 10^6 /uL (3.70-4.87); Red Cell Distribution Width 17 % (10-15); White Blood Count 4.6 10^3/uL (3.5-10.8)
--- NOTE | 2019-07-27 10:07 | PN ---
Progress Note - Progress Note Date of Service: 07/27/19 SOAP: Subjective: []Feeling well, minimal pain. Unfortunately did not sleep well and is very tired and weaker today. [facility] therefore is not offering a bed. Son at bedside is very hopeful she will continue to improve and wants to cont. aggressive PT. Medications: Acetaminophen (Tylenol Tab*) 650 mg PO Q4H PRN PRN Reason: MILD PAIN or TEMP > 100.4 Last Admin: 07/26/19 22:09 Dose: 325 mg Hydrocodone Bitart/Acetaminophen ([place] 5-325 Tab*) 2 tab PO Q4H PRN PRN Reason: PAIN - MODERATE Last Admin: 07/25/19 04:31 Dose: 2 tab Ascorbic Acid (Vitamin C Tab*) 1,000 mg PO DAILY [facility] Last Admin: 07/26/19 09:13 Dose: 1,000 mg Calcium/Vitamin D (Oscal D Tab 250/125*) 1 tab PO DAILY [facility] Last Admin: 07/26/19 09:12 Dose: 1 tab Carboxymethylcellulose/Glycerin (Refresh Optive Gel Eye Gel) 1 applic BOTH EYES BID [facility] Last Admin: 07/26/19 22:14 Dose: 1 drop Docusate Sodium (Colace Cap*) 100 mg PO BID [facility] Last Admin: 07/26/19 22:09 Dose: 100 mg Enoxaparin Sodium (Lovenox(*)) 40 mg SUBCUT Q24H [facility] Last Admin: 07/26/19 09:11 Dose: 40 mg Sodium Chloride (Ns 0.9% 1000 Ml) 1,000 mls @ 75 mls/hr IV .PER RATE [facility] Last Admin: 07/26/19 23:36 Dose: 75 mls/hr Latanoprost (Xalatan 0.005%*) 1 drop BOTH EYES BEDTIME [facility] Last Admin: 07/26/19 22:23 Dose: 1 drop Morphine Sulfate (Morphine Inj (Syringe))*) 2 mg IV Q1H PRN PRN Reason: PAIN - SEVERE Multi-Ingredient Liniment/Rub (Harrison Hickey*) 1 applic TOPICAL DAILY PRN PRN Reason: PAIN Pto: ([place]azeo 0.7% Ophthalmic Solution) Nf Med 1 drop BOTH EYES QAM [facility] Last Admin: 07/26/19 09:15 Dose: 1 drop Ondansetron HCl (Zofran Inj*) 4 mg IV Q4H PRN PRN Reason: NAUSEA/VOMITING Ondansetron HCl (Zofran Inj*) 4 mg IV Q6H PRN PRN Reason: NAUSEA/VOMITING Polyethylene Glycol/Electrolytes (Miralax*) 17 gm PO DAILY [facility] Last Admin: 07/26/19 09:13 Dose: 17 gm Senna (Senokot 8.6 Mg Tab*) 1 tab PO BID [facility] Last Admin: 07/26/19 22:10 Dose: 1 tab Objective: [] Vital Signs Temp Pulse Resp BP Pulse Ox 98.1 F 75 18 127/52 96 07/27/19 08:20 07/27/19 08:20 07/27/19 08:20 07/27/19 08:20 07/27/19 08:20 A&Ox3, EOM, nuero grossly non-focal Sleepy, but easily arousable HRR, S1S2 LS clear +BS, soft and non-tender +PP=bilat, no edema R hip dressing CDI Internal rotation of left foot Laboratory Results - last 24 hr 07/26/19 07/27/19 07/27/19 05:48 09:38 09:38 WBC 4.6 RBC 2.79 L Hgb 8.8 L Hct 26 L MCV 92 MCH 32 H MCHC 34 RDW 17 H Plt Count 77 L MPV 10.4 Neut % (Auto) 62.9 Lymph % (Auto) 22.3 [place] % (Auto) 11.5 Eos % (Auto) 2.5 Baso % (Auto) 0.8 Absolute Neuts (auto) 2.9 Absolute Lymphs (auto) 1.0 Absolute Monos (auto) 0.5 Absolute Eos (auto) 0.1 Absolute Basos (auto) 0.0 Absolute Nucleated RBC 0.0 Nucleated RBC % 0.1 Sodium 141 Potassium 3.4 L Chloride 115 H Carbon Dioxide 21 L Anion Gap 5 BUN 12 Creatinine 0.80 Est GFR ( Amer) 81.7 Est GFR (Non-Af Amer) 67.5 BUN/Creatinine Ratio 15.0 Glucose 98 Calcium 7.6 L Total Bilirubin 0.80 AST 11 L ALT 6 L Alkaline Phosphatase 44 Total Protein 4.5 L Albumin 2.4 L Globulin 2.1 Albumin/Globulin Ratio 1.1 Blood Type B Positive Antibody Screen Negative Crossmatch See Detail Assessment: []88 yo female with MM and excellent disease control on maintenance revlimid admitted with traumatic R hip fracture s/p ORIF. Plan: []1. R hip fx - s/p ORIF, POD#3 - cont. PT 2. LV outflow obstruction/diastolic dysfunction - d/c fluids and vazquez today - cont. strict I&Os - preoperative cardiology consultation appreciated 3. Acute blood loss anemia - Hgb stable @ 8.8, recheck in AM 3. MM - holding Revlimid, will resume postoperatively when skin incision appears well healed - possible adjuvant RT though no evidence for large lytic lesion @ fracture, consider consult @ d/c 4. DVT prophylaxis - Lovenox SQ daily 5. FULL CODE Dispo: Rehab pending, currently not able to tolerate PMRU schedule, we will cont. to work to motivate though I suspect ultimately she will need subacute rehab
[2019-07-27 10:08] LABS: Albumin 2.4 g/dL (3.2-5.2); Albumin/Globulin Ratio 1.1 (1-3); Calcium 7.6 mg/dL (8.6-10.3); EGFR African American 81.7 (>60); EGFR Non-African American 67.5 (>60); Globulin 2.1 g/dL (2-4); Potassium 3.4 mmol/L (3.5-5.0); Total Bilirubin 0.8 mg/dL (0.2-1.0); Total Protein 4.5 g/dL (6.4-8.9)
[2019-07-27] MEDS: Polyethylene Glycol 3350* 17 GM PACKET PO SCH (10:41)
[2019-07-27] MEDS: Ascorbic Acid TAB* 500 MG PO SCH (10:41)
[2019-07-27] MEDS: Docusate CAP* 100 MG PO SCH ×2 (10:41→19:42)
[2019-07-27] MEDS: Potassium Chlor TAB* 20 MEQ TAB.ER PO SCH (10:42)
[2019-07-27] MEDS: Enoxaparin(*) 40 MG/0.4 ML SYR SUBCUT SCH (10:42)
[2019-07-27] MEDS: Calcium/Vitamin D TAB 250/125* TAB PO SCH (10:42)
[2019-07-27] MEDS: Senna TAB 8.6 mg* TAB PO SCH ×2 (10:42→19:43)
[2019-07-27] MEDS: Acetaminophen TAB* 325 MG PO PRN ×3 (10:48→19:41)
[2019-07-27] MEDS: Carboxymethylcellulose/Glyceri 10 ML OPHTH.GEL lubricant eye gel BOTH EYES SCH ×2 (10:49→19:49)
[2019-07-27] MEDS: OLOPATADINE 0.7% BOTH EYES SCH (10:49)
--- NOTE | 2019-07-27 13:21 | PN ---
Progress Note - Progress Note Date of Service: 07/27/19 SOAP: Subjective: []Pt seen OOB in chair. She is feeling well without CP, SOB, dizziness, nausea. Hip pain is well controlled. Objective: []Gen: Appears well, NAD RLE: Dressings changed, incisions CDI without erythema or discharge. Thigh soft. DF/PF intact, DP2+, sensation intact to light touch distally. Calves supple and nontender without erythema, edema or palpable cords Assessment: []Nondisplaced right intertrochanteric hip fracture s/p Right hip trochanteric nailing Plan: []WBAT PT/OT lovenox 40 mg sq qd x 30 days post op ready for DC from ortho standpoint with 2 week F/U and daily dry sterile dressing change Vital Signs Temp 98.0 F 07/27/19 12:30 Pulse 76 07/27/19 12:30 Resp 16 07/27/19 12:30 BP 110/45 07/27/19 12:30 Pulse Ox 99 07/27/19 12:30 Intake & Output 07/26/19 07/27/19 07/27/19 18:59 06:59 18:59 Intake Total 1404 400 430 Output Total 250 350 Balance 1154 50 430 Intake: IV Fluids 480 430 NS (0.9%) 480 430 Oral 630 400 Packed Cells 294 Output: Olivia 250 350 Laboratory Last Values WBC 4.6 10^3/uL (3.5-10.8) 07/27/19 09:38 RBC 2.79 10^6 /uL (3.70-4.87) L 07/27/19 09:38 Hgb 8.8 g/dL (12.0-16.0) L 07/27/19 09:38 Hct 26 % (35-47) L 07/27/19 09:38 MCV 92 fL (80-97) 07/27/19 09:38 MCH 32 pg (27-31) H 07/27/19 09:38 MCHC 34 g/dL (31-36) 07/27/19 09:38 RDW 17 % (10-15) H 07/27/19 09:38 Plt Count 77 10^3/uL (150-450) L 07/27/19 09:38 MPV 10.4 fL (7.4-10.4) 07/27/19 09:38 Neut % (Auto) 62.9 % 07/27/19 09:38 Lymph % (Auto) 22.3 % 07/27/19 09:38 [place] % (Auto) 11.5 % 07/27/19 09:38 Eos % (Auto) 2.5 % 07/27/19 09:38 Baso % (Auto) 0.8 % 07/27/19 09:38 Absolute Neuts (auto) 2.9 10^3/ul (1.5-7.7) 07/27/19 09:38 Absolute Lymphs (auto) 1.0 10^3/ul (1.0-4.8) 07/27/19 09:38 Absolute Monos (auto) 0.5 10^3/ul (0-0.8) 07/27/19 09:38 Absolute Eos (auto) 0.1 10^3/ul (0-0.6) 07/27/19 09:38 Absolute Basos (auto) 0.0 10^3/ul (0-0.2) 07/27/19 09:38 Absolute Nucleated RBC 0.0 10^3/ul 07/27/19 09:38 Nucleated RBC % 0.1 07/27/19 09:38 Hem Pathologist Commnt 07/25/19 04:49 INR (Anticoag Therapy) 1.04 (0.82-1.09) 07/22/19 19:05 APTT 35.6 seconds (26.0-38.0) 07/22/19 19:05 Sodium 141 mmol/L (135-145) 07/27/19 09:38 Potassium 3.4 mmol/L (3.5-5.0) L 07/27/19 09:38 Chloride 115 mmol/L (101-111) H 07/27/19 09:38 Carbon Dioxide 21 mmol/L (22-32) L 07/27/19 09:38 Anion Gap 5 mmol/L (2-11) 07/27/19 09:38 BUN 12 mg/dL (6-24) 07/27/19 09:38 Creatinine 0.80 mg/dL (0.51-0.95) 07/27/19 09:38 Est GFR ( Amer) 81.7 (>60) 07/27/19 09:38 Est GFR (Non-Af Amer) 67.5 (>60) 07/27/19 09:38 BUN/Creatinine Ratio 15.0 (8-20) 07/27/19 09:38 Glucose 98 mg/dL (70-100) 07/27/19 09:38 Lactic Acid 1.1 mmol/L (0.5-2.0) 07/22/19 19:05 Calcium 7.6 mg/dL (8.6-10.3) L 07/27/19 09:38 Total Bilirubin 0.80 mg/dL (0.2-1.0) 07/27/19 09:38 AST 11 U/L (13-39) L 07/27/19 09:38 ALT 6 U/L (7-52) L 07/27/19 09:38 Alkaline Phosphatase 44 U/L (34-104) 07/27/19 09:38 Troponin I 0.03 ng/mL (<0.04) 07/22/19 19:05 Total Protein 4.5 g/dL (6.4-8.9) L 07/27/19 09:38 Albumin 2.4 g/dL (3.2-5.2) L 07/27/19 09:38 Globulin 2.1 g/dL (2-4) 07/27/19 09:38 Albumin/Globulin Ratio 1.1 (1-3) 07/27/19 09:38 Urine Color Yellow 07/22/19 19:00 Urine Appearance Cloudy 07/22/19 19:00 Urine pH 6.0 (5-9) 07/22/19 19:00 Ur Specific [place] 1.019 (1.010-1.030) 07/22/19 19:00 Urine Protein Negative (Negative) 07/22/19 19:00 Urine Ketones Negative (Negative) 07/22/19 19:00 Urine Blood Negative (Negative) 07/22/19 19:00 Urine Nitrate Negative (Negative) 07/22/19 19:00 Urine Bilirubin Negative (Negative) 07/22/19 19:00 Urine Urobilinogen Negative (Negative) 07/22/19 19:00 Ur Leukocyte Esterase Negative (Negative) 07/22/19 19:00 Urine Glucose Negative (Negative) 07/22/19 19:00 Blood Type B Positive 07/26/19 05:48 Antibody Screen Negative 07/26/19 05:48 Crossmatch See Detail 07/26/19 05:48
[2019-07-27] MEDS: Latanoprost 0.005%* 2.5 ml BTL BOTH EYES SCH (19:46)
[2019-07-28 05:28] LABS: ABS Eosinophils 0.1 10^3/ul (0-0.6); ABS Lymphocytes 1.4 10^3/ul (1.0-4.8); ABS Monocytes 0.5 10^3/ul (0-0.8); ABS Neutrophils 2.7 10^3/ul (1.5-7.7); Eosinophil % 2.1 %; Hematocrit 30 % (35-47); Hemoglobin 9.9 g/dL (12.0-16.0); Lymphocyte % 29.9 %; Mean Corpuscular HGB Conc 33 g/dL (31-36); Mean Corpuscular Hemoglobin 31 pg (27-31); Mean Corpuscular Volume 93 fL (80-97); Mean Platelet Volume 9.9 fL (7.4-10.4); Nucleated Red Blood Cells % 0.1; Platelet Count 93 10^3/uL (150-450); Red Blood Count 3.25 10^6 /uL (3.70-4.87); Red Cell Distribution Width 17 % (10-15); White Blood Count 4.8 10^3/uL (3.5-10.8)
[2019-07-28 05:45] LABS: Albumin 2.8 g/dL (3.2-5.2); Albumin/Globulin Ratio 1.2 (1-3); BUN/Creatinine Ratio 13.8 (8-20); Calcium 8.4 mg/dL (8.6-10.3); EGFR African American 74.2 (>60); EGFR Non-African American 61.3 (>60); Globulin 2.4 g/dL (2-4); Potassium 3.4 mmol/L (3.5-5.0); Total Bilirubin 0.9 mg/dL (0.2-1.0); Total Protein 5.2 g/dL (6.4-8.9)
[2019-07-28] MEDS: Calcium/Vitamin D TAB 250/125* TAB PO SCH (09:59)
[2019-07-28] MEDS: Acetaminophen TAB* 325 MG PO PRN ×3 (09:59→21:37)
[2019-07-28] MEDS: Docusate CAP* 100 MG PO SCH ×2 (09:59→21:02)
[2019-07-28] MEDS: Senna TAB 8.6 mg* TAB PO SCH ×2 (10:00→21:02)
[2019-07-28] MEDS: Enoxaparin(*) 40 MG/0.4 ML SYR SUBCUT SCH (10:00)
[2019-07-28] MEDS: Ascorbic Acid TAB* 500 MG PO SCH (10:00)
[2019-07-28] MEDS: Potassium Chlor TAB* 20 MEQ TAB.ER PO SCH (10:00)
[2019-07-28] MEDS: Carboxymethylcellulose/Glyceri 10 ML OPHTH.GEL lubricant eye gel BOTH EYES SCH ×2 (10:01→21:01)
[2019-07-28] MEDS: Polyethylene Glycol 3350* 17 GM PACKET PO SCH (10:02)
[2019-07-28] MEDS: OLOPATADINE 0.7% BOTH EYES SCH (10:02)
[2019-07-28] MEDS: Analgesic BALM* 114 GM TOPICAL PRN (10:05)
--- NOTE | 2019-07-28 15:37 | PN ---
Progress Note - Progress Note Date of Service: 07/28/19 SOAP: Subjective: []Pt seen at bedside. She is feeling well without complaints. Denies CP, SOB. R hip is not painful. Objective: []Gen: Appears well, NAD RLE: Dressings remain CDI. Thigh soft. DF/PF intact, DP2+, sensation intact to light touch distally. Calves supple and nontender without erythema, edema or palpable cords Assessment: []Nondisplaced right intertrochanteric hip fracture s/p Right hip trochanteric nailing Plan: []WBAT PT/OT lovenox 40 mg sq qd x 30 days post op ready for DC from ortho standpoint with 2 week F/U and daily dry sterile dressing change Vital Signs Temp 98.0 F 07/28/19 12:04 Pulse 81 07/28/19 12:04 Resp 16 07/28/19 12:04 BP 135/54 07/28/19 12:04 Pulse Ox 98 07/28/19 12:04 Intake & Output 07/27/19 07/28/19 07/28/19 18:59 06:59 18:59 Intake Total 548 940 240 Output Total 150 200 0 Balance 398 740 240 Intake: IV Fluids 430 NS (0.9%) 430 Oral 118 940 240 Output: Urine 0 200 0 Olivia 150 Other: Estimated Void Small Small # Bowel Movements 1 Estimated Stool Amount Large # Voids 1 Laboratory Last Values WBC 4.8 10^3/uL (3.5-10.8) 07/28/19 05:10 RBC 3.25 10^6 /uL (3.70-4.87) L 07/28/19 05:10 Hgb 9.9 g/dL (12.0-16.0) L 07/28/19 05:10 Hct 30 % (35-47) L 07/28/19 05:10 MCV 93 fL (80-97) 07/28/19 05:10 MCH 31 pg (27-31) 07/28/19 05:10 MCHC 33 g/dL (31-36) 07/28/19 05:10 RDW 17 % (10-15) H 07/28/19 05:10 Plt Count 93 10^3/uL (150-450) L 07/28/19 05:10 MPV 9.9 fL (7.4-10.4) 07/28/19 05:10 Neut % (Auto) 57.5 % 07/28/19 05:10 Lymph % (Auto) 29.9 % 07/28/19 05:10 [place] % (Auto) 9.9 % 07/28/19 05:10 Eos % (Auto) 2.1 % 07/28/19 05:10 Baso % (Auto) 0.6 % 07/28/19 05:10 Absolute Neuts (auto) 2.7 10^3/ul (1.5-7.7) 07/28/19 05:10 Absolute Lymphs (auto) 1.4 10^3/ul (1.0-4.8) 07/28/19 05:10 Absolute Monos (auto) 0.5 10^3/ul (0-0.8) 07/28/19 05:10 Absolute Eos (auto) 0.1 10^3/ul (0-0.6) 07/28/19 05:10 Absolute Basos (auto) 0.0 10^3/ul (0-0.2) 07/28/19 05:10 Absolute Nucleated RBC 0.0 10^3/ul 07/28/19 05:10 Nucleated RBC % 0.1 07/28/19 05:10 Hem Pathologist Commnt 07/25/19 04:49 INR (Anticoag Therapy) 1.04 (0.82-1.09) 07/22/19 19:05 APTT 35.6 seconds (26.0-38.0) 07/22/19 19:05 Sodium 142 mmol/L (135-145) 07/28/19 05:10 Potassium 3.4 mmol/L (3.5-5.0) L 07/28/19 05:10 Chloride 114 mmol/L (101-111) H 07/28/19 05:10 Carbon Dioxide 21 mmol/L (22-32) L 07/28/19 05:10 Anion Gap 7 mmol/L (2-11) 07/28/19 05:10 BUN 12 mg/dL (6-24) 07/28/19 05:10 Creatinine 0.87 mg/dL (0.51-0.95) 07/28/19 05:10 Est GFR ( Amer) 74.2 (>60) 07/28/19 05:10 Est GFR (Non-Af Amer) 61.3 (>60) 07/28/19 05:10 BUN/Creatinine Ratio 13.8 (8-20) 07/28/19 05:10 Glucose 95 mg/dL (70-100) 07/28/19 05:10 Lactic Acid 1.1 mmol/L (0.5-2.0) 07/22/19 19:05 Calcium 8.4 mg/dL (8.6-10.3) L 07/28/19 05:10 Total Bilirubin 0.90 mg/dL (0.2-1.0) 07/28/19 05:10 AST 13 U/L (13-39) 07/28/19 05:10 ALT 8 U/L (7-52) 07/28/19 05:10 Alkaline Phosphatase 57 U/L (34-104) 07/28/19 05:10 Troponin I 0.03 ng/mL (<0.04) 07/22/19 19:05 Total Protein 5.2 g/dL (6.4-8.9) L 07/28/19 05:10 Albumin 2.8 g/dL (3.2-5.2) L 07/28/19 05:10 Globulin 2.4 g/dL (2-4) 07/28/19 05:10 Albumin/Globulin Ratio 1.2 (1-3) 07/28/19 05:10 Urine Color Yellow 07/22/19 19:00 Urine Appearance Cloudy 07/22/19 19:00 Urine pH 6.0 (5-9) 07/22/19 19:00 Ur Specific [place] 1.019 (1.010-1.030) 07/22/19 19:00 Urine Protein Negative (Negative) 07/22/19 19:00 Urine Ketones Negative (Negative) 07/22/19 19:00 Urine Blood Negative (Negative) 07/22/19 19:00 Urine Nitrate Negative (Negative) 07/22/19 19:00 Urine Bilirubin Negative (Negative) 07/22/19 19:00 Urine Urobilinogen Negative (Negative) 07/22/19 19:00 Ur Leukocyte Esterase Negative (Negative) 07/22/19 19:00 Urine Glucose Negative (Negative) 07/22/19 19:00 Blood Type B Positive 07/26/19 05:48 Antibody Screen Negative 07/26/19 05:48 Crossmatch See Detail 07/26/19 05:48
[2019-07-28] MEDS: Latanoprost 0.005%* 2.5 ml BTL BOTH EYES SCH (21:01)
[2019-07-29] MEDS: Acetaminophen TAB* 325 MG PO PRN ×3 (10:40→20:17)
[2019-07-29] MEDS: Potassium Chlor TAB* 20 MEQ TAB.ER PO SCH (10:41)
[2019-07-29] MEDS: Ascorbic Acid TAB* 500 MG PO SCH (10:41)
[2019-07-29] MEDS: Calcium/Vitamin D TAB 250/125* TAB PO SCH (10:41)
[2019-07-29] MEDS: Analgesic BALM* 114 GM TOPICAL PRN (10:41)
[2019-07-29] MEDS: Enoxaparin(*) 40 MG/0.4 ML SYR SUBCUT SCH (10:42)
[2019-07-29] MEDS: Polyethylene Glycol 3350* 17 GM PACKET PO SCH (10:42)
[2019-07-29] MEDS: Carboxymethylcellulose/Glyceri 10 ML OPHTH.GEL lubricant eye gel BOTH EYES SCH ×2 (10:42→22:02)
[2019-07-29] MEDS: Senna TAB 8.6 mg* TAB PO SCH (10:42)
[2019-07-29] MEDS: Docusate CAP* 100 MG PO SCH (10:42)
[2019-07-29] MEDS: OLOPATADINE 0.7% BOTH EYES SCH (10:43)
[2019-07-29] MEDS ORDERED: Docusate CAP* 100 MG PO PRN (11:52)
[2019-07-29] MEDS ORDERED: Polyethylene Glycol 3350* 17 GM PACKET PO PRN (11:52)
--- NOTE | 2019-07-29 11:58 | PN ---
Progress Note - Progress Note Date of Service: 07/29/19 SOAP: Subjective: mentally more clear today. reports pain under better control. loose stools over night Objective: Vital Signs Temp Pulse Resp BP Pulse Ox 98.3 F 78 16 135/60 99 07/29/19 08:30 07/29/19 08:30 07/29/19 08:30 07/29/19 08:30 07/29/19 08:30 sitting up in nad perr eomi op moist CTA bl s1 s2 II/ DEISI soft nt +Bs trace LE edema dressings on right leg clean and intact oriented to July 2019, hospital moving all extremities Acetaminophen (Tylenol Tab*) 650 mg PO Q4H PRN PRN Reason: MILD PAIN or TEMP > 100.4 Last Admin: 07/29/19 10:40 Dose: 325 mg Hydrocodone Bitart/Acetaminophen ([place] 5-325 Tab*) 2 tab PO Q4H PRN PRN Reason: PAIN - MODERATE Last Admin: 07/25/19 04:31 Dose: 2 tab Ascorbic Acid (Vitamin C Tab*) 1,000 mg PO DAILY [facility] Last Admin: 07/29/19 10:41 Dose: 1,000 mg Calcium/Vitamin D (Oscal D Tab 250/125*) 1 tab PO DAILY [facility] Last Admin: 07/29/19 10:41 Dose: 1 tab Carboxymethylcellulose/Glycerin (Refresh Optive Gel Eye Gel) 1 applic BOTH EYES BID [facility] Last Admin: 07/29/19 10:42 Dose: 1 drop Docusate Sodium (Colace Cap*) 100 mg PO BID PRN PRN Reason: CONSTIPATION Enoxaparin Sodium (Lovenox(*)) 40 mg SUBCUT Q24H [facility] Last Admin: 07/29/19 10:42 Dose: 40 mg Latanoprost (Xalatan 0.005%*) 1 drop BOTH EYES BEDTIME [facility] Last Admin: 07/28/19 21:01 Dose: 1 drop Morphine Sulfate (Morphine Inj (Syringe))*) 2 mg IV Q1H PRN PRN Reason: PAIN - SEVERE Multi-Ingredient Liniment/Rub (Harrison Hickey*) 1 applic TOPICAL DAILY PRN PRN Reason: PAIN Last Admin: 07/29/19 10:41 Dose: 1 applic Pto: (Pazeo 0.7% Ophthalmic Solution) Nf Med 1 drop BOTH EYES QAM [facility] Last Admin: 07/29/19 10:43 Dose: 1 drop Ondansetron HCl (Zofran Inj*) 4 mg IV Q4H PRN PRN Reason: NAUSEA/VOMITING Ondansetron HCl (Zofran Inj*) 4 mg IV Q6H PRN PRN Reason: NAUSEA/VOMITING Polyethylene Glycol/Electrolytes (Miralax*) 17 gm PO DAILY PRN PRN Reason: CONSTIPATION Potassium Chloride (Klor Con Er Tab*) 20 meq PO DAILY [facility] Last Admin: 07/29/19 10:41 Dose: 20 meq Assessment: 88 yo female with MM and excellent disease control on maintenance revlimid admitted with traumatic R hip fracture s/p ORIF. Plan: 1. R hip fx - s/p ORIF, POD#5 - cont. PT 2. LV outflow obstruction/diastolic dysfunction - d/c fluids and vazquez today - cont. strict I&Os - preoperative cardiology consultation appreciated 3. Acute blood loss anemia - Hgb stable 3. MM - holding Revlimid, will resume postoperatively when skin incision appears well healed, on follow up with Dr. Lucia - possible adjuvant RT though no evidence for large lytic lesion @ fracture, consider consult @ d/c 4. DVT prophylaxis - Lovenox SQ daily 5. FULL CODE
[2019-07-29 12:49] LABS: ABS Eosinophils 0.1 10^3/ul (0-0.6); ABS Monocytes 0.6 10^3/ul (0-0.8); ABS Neutrophils 3.3 10^3/ul (1.5-7.7); Hematocrit 28 % (35-47); Hemoglobin 9.5 g/dL (12.0-16.0); Lymphocyte % 20.4 %; Mean Corpuscular HGB Conc 33 g/dL (31-36); Mean Corpuscular Hemoglobin 31 pg (27-31); Mean Corpuscular Volume 92 fL (80-97); Mean Platelet Volume 9.7 fL (7.4-10.4); Platelet Count 102 10^3/uL (150-450); Red Blood Count 3.08 10^6 /uL (3.70-4.87); Red Cell Distribution Width 17 % (10-15)
[2019-07-29 13:07] LABS: Calcium 8.5 mg/dL (8.6-10.3); EGFR African American 80.6 (>60); EGFR Non-African American 66.6 (>60); Magnesium 1.8 mg/dL (1.9-2.7); Potassium 3.6 mmol/L (3.5-5.0)
--- NOTE | 2019-07-29 14:30 | PN ---
Progress Note - Progress Note Date of Service: 07/29/19 SOAP: Subjective: [Pt seen sitting in chair. She is feeling well without complaints. Denies CP, SOB. R hip is not painful. Objective: []Gen: Appears well, NAD RLE: Dressings remain CDI. Thigh soft. DF/PF intact, DP2+, sensation intact to light touch distally. Calves supple and nontender without erythema, edema or palpable cords Vital Signs Temp 98.7 F 07/29/19 12:11 Pulse 76 07/29/19 12:11 Resp 16 07/29/19 12:11 BP 133/48 07/29/19 12:11 Pulse Ox 99 07/29/19 12:11 Intake & Output 07/28/19 07/29/19 07/29/19 18:59 06:59 18:59 Intake Total 240 120 Output Total [address] [facility] -233 -80 -618 Intake: Oral 240 120 Output: Urine 400 200 600 Post Void Residual 73 18 Other: Estimated Void Small Medium Date of Last Bowel t Movement # Bowel Movements 1 multiple Estimated Stool Amount Medium Large # Voids 1 Assessment: []Nondisplaced right intertrochanteric hip fracture s/p Right hip trochanteric nailing Plan: []WBAT PT/OT lovenox 40 mg sq qd x 30 days post op ready for DC from ortho standpoint with 2 week F/U and daily dry sterile dressing change
[2019-07-29] MEDS: Latanoprost 0.005%* 2.5 ml BTL BOTH EYES SCH (21:39)
[2019-07-30] MEDS: Acetaminophen TAB* 325 MG PO PRN ×3 (00:52→09:29)
[2019-07-30] MEDS: Analgesic BALM* 114 GM TOPICAL PRN (05:23)
[2019-07-30 05:51] LABS: ABS Basophils 0.1 10^3/ul (0-0.2); ABS Eosinophils 0.1 10^3/ul (0-0.6); ABS Lymphocytes 1.7 10^3/ul (1.0-4.8); ABS Monocytes 0.6 10^3/ul (0-0.8); ABS Neutrophils 1.8 10^3/ul (1.5-7.7); Eosinophil % 2.9 %; Hematocrit 29 % (35-47); Hemoglobin 9.6 g/dL (12.0-16.0); Lymphocyte % 40.2 %; Mean Corpuscular HGB Conc 33 g/dL (31-36); Mean Corpuscular Hemoglobin 31 pg (27-31); Mean Corpuscular Volume 92 fL (80-97); Mean Platelet Volume 10.3 fL (7.4-10.4); Nucleated Red Blood Cells % 0.1; Platelet Count 109 10^3/uL (150-450); Red Blood Count 3.11 10^6 /uL (3.70-4.87); Red Cell Distribution Width 17 % (10-15); White Blood Count 4.3 10^3/uL (3.5-10.8)
[2019-07-30 06:10] LABS: BUN/Creatinine Ratio 14.5 (8-20); Calcium 8.5 mg/dL (8.6-10.3); EGFR African American 78.3 (>60); EGFR Non-African American 64.7 (>60); Magnesium 1.7 mg/dL (1.9-2.7); Potassium 3.8 mmol/L (3.5-5.0)
--- NOTE | 2019-07-30 08:56 | DS ---
- Discharge Summary ADMIT DATE: 07/23/2019 DISCHARGE DATE:07/30/2019 DISCHARGE DIAGNOSIS: 1. Right femur fracture sp ORIF 2. multiple myeloma DISCHARGE CONDITION: stable DISCHARGE ACTIVITY: as appropriate for post-femur fracture repair DISCHARGE DISPOSITION: Subacute nursing facility DISCHARGE DIET: regular DISCHARGE MEDICATIONS: Home Medications Medication Instructions Recorded Confirmed Type Pazeo 0.7% 1 drop BOTH EYES QAM 05/14/17 07/22/19 History Acetaminophen ADULT LIQ* [Tylenol 650 mg PO Q4H PRN #1 bottle 06/26/17 07/22/19 Rx ADULT LIQ*] Aspirin EC TAB* [Ecotrin EC Low 81 mg PO QAM #30 tab 06/26/17 07/22/19 Rx Dose 81 MG*] Calcium/Vitamin D TAB 250/125* 500 mg PO DAILY #30 tab 06/26/17 07/22/19 Rx [Oscal D TAB 250/125*] Cranberry Fruit Extract [Cranberry 500 mg PO DAILY #30 tab 06/26/17 07/22/19 Rx Concentrate] Latanoprost 0.005% OPTH (NF) 1 drop BOTH EYES QPM #1 bottle 06/26/17 07/22/19 Rx [Xalatan 0.005% OPTH*] Methyl Salicylate/Menthol [Pain 1 cre TOPICAL DAILY PRN #1 jar 06/26/17 Rx Relieving 1%-15% Cream] Ascorbic Acid TAB* [Vitamin C 1,000 mg PO DAILY 07/22/19 07/22/19 History TAB*] Mike/Vit B12/Folic Acid/Vit B6 1 tab PO DAILY 07/22/19 07/22/19 History [Folic Acid-Vit B6-Vit B12 Tab] Carboxymethylcellulose Sodium 1 drop BOTH EYES DAILY 07/22/19 07/22/19 History [Refresh Tears] Dexamethasone TAB* [Decadron TAB*] 12 mg PO WEEKLY 07/22/19 07/22/19 start 08/06 Acetaminophen TAB* [Tylenol TAB*] 650 mg PO Q4H PRN tab 07/30/19 Rx Carboxymethylcellulose/Glyceri 1 applic BOTH EYES BID ophth.gel 07/30/19 Rx [Refresh OPTIVE GEL EYE gel] Docusate CAP* [Colace Cap*] 100 mg PO BID PRN cap 10/24/19 Rx Enoxaparin(*) [Lovenox(*)] 40 mg SUBCUT Q24H syringe 07/30/19 Rx for 30 days postoperative HYDROcodone/ACETAMIN 5-325 MG* 2 tab PO Q4H PRN tab 07/30/19 Rx [[place] 5-325 TAB*] Potassium Chlor TAB* [Potassium 20 meq PO DAILY tab.er 07/30/19 Rx Chlor TAB 20 MEQ*] DISCHARGE FOLLOW UP: Dr. Lucia 08/14 Main office 12:[address] 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 Her revlimid was held, MRI confirmed concern for fracture, and she was taken to the OR on 07/[address] Farias (please see his surgical note for details). She is recovering quite well postoperatively, however still with some confusion and deconditioning, prohibiting her from being an appropriate candidate for acute rehab. As such she will be discharged to a SNF for subacute rehabilitation. The plan will be to resume her ASA 81 mg and dexamethasone, but hold her revlimid until she follows up with Dr. Lucia on 08/14. Consideration could be made of RT to the hip given the pathologic nature of the fracture, however as there was no large lytic lesion there the utility is less clear. She will be kept on lovenox 40 mg daily until 30 days postoperative per ortho and should follow up with them in 1-2 weeks for suture removal. >30 mins spent, >50% in face to face counseling
[2019-07-30] MEDS: Ascorbic Acid TAB* 500 MG PO SCH (09:28)
[2019-07-30] MEDS: Calcium/Vitamin D TAB 250/125* TAB PO SCH (09:29)
[2019-07-30] MEDS: Potassium Chlor TAB* 20 MEQ TAB.ER PO SCH (09:29)
[2019-07-30] MEDS: Enoxaparin(*) 40 MG/0.4 ML SYR SUBCUT SCH (09:30)
[2019-07-30] MEDS: Carboxymethylcellulose/Glyceri 10 ML OPHTH.GEL lubricant eye gel BOTH EYES SCH (09:31)
[2019-07-30] MEDS: OLOPATADINE 0.7% BOTH EYES SCH (09:40)
--- NOTE | 2019-07-30 09:48 | PN ---
Progress Note - Progress Note Date of Service: 07/30/19 SOAP: Subjective: []Pt seen in bed eating breakfast. She is feeling well without complaints. Denies CP, SOB. R hip is not painful. Objective: []Gen: Appears well, NAD Right lower extremity: Dressings remain CDI. Thigh soft. DF/PF intact, DP2+, sensation intact to light touch distally. Calves supple and nontender without erythema, edema or palpable cords. Laboratory Last Values WBC 4.3 10^3/uL (3.5-10.8) 07/30/19 05:33 RBC 3.11 10^6 /uL (3.70-4.87) L 07/30/19 05:33 Hgb 9.6 g/dL (12.0-16.0) L 07/30/19 05:33 Hct 29 % (35-47) L 07/30/19 05:33 MCV 92 fL (80-97) 07/30/19 05:33 MCH 31 pg (27-31) 07/30/19 05:33 MCHC 33 g/dL (31-36) 07/30/19 05:33 RDW 17 % (10-15) H 07/30/19 05:33 Plt Count 109 10^3/uL (150-450) L 07/30/19 05:33 MPV 10.3 fL (7.4-10.4) 07/30/19 05:33 Neut % (Auto) 41.5 % 07/30/19 05:33 Lymph % (Auto) 40.2 % 07/30/19 05:33 [place] % (Auto) 14.1 % 07/30/19 05:33 Eos % (Auto) 2.9 % 07/30/19 05:33 Baso % (Auto) 1.3 % 07/30/19 05:33 Absolute Neuts (auto) 1.8 10^3/ul (1.5-7.7) 07/30/19 05:33 Absolute Lymphs (auto) 1.7 10^3/ul (1.0-4.8) 07/30/19 05:33 Absolute Monos (auto) 0.6 10^3/ul (0-0.8) 07/30/19 05:33 Absolute Eos (auto) 0.1 10^3/ul (0-0.6) 07/30/19 05:33 Absolute Basos (auto) 0.1 10^3/ul (0-0.2) 07/30/19 05:33 Absolute Nucleated RBC 0.0 10^3/ul 07/30/19 05:33 Nucleated RBC % 0.1 07/30/19 05:33 Hem Pathologist Commnt 07/25/19 04:49 INR (Anticoag Therapy) 1.04 (0.82-1.09) 07/22/19 19:05 APTT 35.6 seconds (26.0-38.0) 07/22/19 19:05 Sodium 143 mmol/L (135-145) 07/30/19 05:33 Potassium 3.8 mmol/L (3.5-5.0) 07/30/19 05:33 Chloride 116 mmol/L (101-111) H 07/30/19 05:33 Carbon Dioxide 21 mmol/L (22-32) L 07/30/19 05:33 Anion Gap 6 mmol/L (2-11) 07/30/19 05:33 BUN 12 mg/dL (6-24) 07/30/19 05:33 Creatinine 0.83 mg/dL (0.51-0.95) 07/30/19 05:33 Est GFR ( Amer) 78.3 (>60) 07/30/19 05:33 Est GFR (Non-Af Amer) 64.7 (>60) 07/30/19 05:33 BUN/Creatinine Ratio 14.5 (8-20) 07/30/19 05:33 Glucose 94 mg/dL (70-100) 07/30/19 05:33 Lactic Acid 1.1 mmol/L (0.5-2.0) 07/22/19 19:05 Calcium 8.5 mg/dL (8.6-10.3) L 07/30/19 05:33 Magnesium 1.7 mg/dL (1.9-2.7) L 07/30/19 05:33 Total Bilirubin 0.90 mg/dL (0.2-1.0) 07/28/19 05:10 AST 13 U/L (13-39) 07/28/19 05:10 ALT 8 U/L (7-52) 07/28/19 05:10 Alkaline Phosphatase 57 U/L (34-104) 07/28/19 05:10 Troponin I 0.03 ng/mL (<0.04) 07/22/19 19:05 Total Protein 5.2 g/dL (6.4-8.9) L 07/28/19 05:10 Albumin 2.8 g/dL (3.2-5.2) L 07/28/19 05:10 Globulin 2.4 g/dL (2-4) 07/28/19 05:10 Albumin/Globulin Ratio 1.2 (1-3) 07/28/19 05:10 Urine Color Yellow 07/22/19 19:00 Urine Appearance Cloudy 07/22/19 19:00 Urine pH 6.0 (5-9) 07/22/19 19:00 Ur Specific [place] 1.019 (1.010-1.030) 07/22/19 19:00 Urine Protein Negative (Negative) 07/22/19 19:00 Urine Ketones Negative (Negative) 07/22/19 19:00 Urine Blood Negative (Negative) 07/22/19 19:00 Urine Nitrate Negative (Negative) 07/22/19 19:00 Urine Bilirubin Negative (Negative) 07/22/19 19:00 Urine Urobilinogen Negative (Negative) 07/22/19 19:00 Ur Leukocyte Esterase Negative (Negative) 07/22/19 19:00 Urine Glucose Negative (Negative) 07/22/19 19:00 Blood Type B Positive 07/26/19 05:48 Antibody Screen Negative 07/26/19 05:48 Crossmatch See Detail 07/26/19 05:48 Vital Signs Temp 98.0 F 07/30/19 07:36 Pulse 74 07/30/19 07:36 Resp 16 07/30/19 07:36 BP 123/57 07/30/19 07:36 Pulse Ox 99 07/30/19 07:36 Intake & Output 07/29/19 07/30/19 07/30/19 18:59 06:59 18:59 Intake Total 480 700 Output Total 1045 521 Balance -565 179 Intake: Oral 480 700 Output: Urine 1000 500 Olivia 0 Post Void Residual 45 21 Other: Estimated Void Medium # Voids 2 Assessment: []Nondisplaced right intertrochanteric hip fracture s/p Right hip trochanteric nailing Plan: []WBAT PT/OT lovenox 40 mg sq qd x 30 days post op ready for DC from ortho standpoint with 2 week F/U and daily dry sterile dressing change
[2019-07-30 11:46] VITALS: BP 122/51
== END 2019-07-30 13:30 | DRG 481 ==
LOC: ED 18:20 → MED 23:12 → OBSVTOIN 07-23 14:20 → SSU 07-24 18:10
PROVIDERS: ADMIT Nurse Practitioner Adult Health; ATTEND Internal Medicine Hematology & Oncology
PROC: 0QS604Z Reposition Right Upper Femur with Internal Fixation Device, Open Approach (ICD-10-PCS; principal; 2019-07-24 13:00)
PROC: 30233N1 Transfusion of Nonautologous Red Blood Cells into Peripheral Vein, Percutaneous Approach (ICD-10-PCS; 2019-07-26)
DX: S72.144A Nondisplaced intertrochanteric fracture of right femur, initial encounter for closed fracture (principal); C90.10 Plasma cell leukemia not having achieved remission; D62 Acute posthemorrhagic anemia; M19.042 Primary osteoarthritis, left hand; M19.041 Primary osteoarthritis, right hand; H40.9 Unspecified glaucoma; K40.90 Unilateral inguinal hernia, without obstruction or gangrene, not specified as recurrent; K57.30 Diverticulosis of large intestine without perforation or abscess without bleeding; I44.7 Left bundle-branch block, unspecified; I08.3 Combined rheumatic disorders of mitral, aortic and tricuspid valves; W01.0XXA Fall on same level from slipping, tripping and stumbling without subsequent striking against object, initial encounter; D64.9 Anemia, unspecified; Z88.0 Allergy status to penicillin; Z82.5 Family history of asthma and other chronic lower respiratory diseases; Z87.891 Personal history of nicotine dependence; Y92.009 Unspecified place in unspecified non-institutional (private) residence as the place of occurrence of the external cause; Z23 Encounter for immunization
CPT/HCPCS: 36415; 71045; 72192; 76000; 80048; 80053; 81003; 83605; 83735; 84484; 85025; 85027; 85060; 85610; 85730; 86850; 86900; 86901; 86922; 90686; 90732; 93005; 99232; 99233; 99239; 99284; A9270-GY; A9579; C1713; C1776; G8978-GP-CM; G8979-GP-CK; J0690; J1240; J1650; J2250; J2405; J3010; P9040

== ENCOUNTER 2019-11-16 16:45 | Inpatient (IN) | payer MEDICARE ==
--- OUTSIDE RECORDS SUMMARY | 2019-11-16 17:04 | XMS REPORT ---
:1930 Author Organization [facility] Care Team Providers Name Role Phone Unavailable Unavailable Unavailable Problems This patient has no known problems. Allergies, Adverse Reactions, Alerts Allergy Name Allergy Status Severity Reaction(s) Onset Inactive Treating Comments Type Date Date Clinician Penicillins Allergen Active Unknown Rash Yesy 9 Zack [id number] Medications Ordered Filled Start Stop Current Ordering Indication Dosage Frequency Signature Comments Components Medication Medication Date Date Medication? Clinician (SIG) Name Name No Known No Known No None None None Medications Medications For This For This Patient Patient Procedures This patient has no known procedures. Results This patient has no known results.
--- OUTSIDE RECORDS SUMMARY | 2019-11-16 17:04 | XMS REPORT ---
:1930 Author Organization [facility] Care Team Providers Name Role Phone Unavailable Unavailable Unavailable Problems Condition Condition Condition Status Onset Resolution Last Treating Comments Name Details Category Date Date Treatment Clinician Date Unspecified Unspecified Diagnosis Active 2018-10 Gali fracture of fracture of 2-11 Evans right right femur, femur, subsequent subsequent encounter encounter for closed for closed fracture fracture with with routine routine healing healing Allergies, Adverse Reactions, Alerts Allergy Name Allergy Status Severity Reaction(s) Onset Inactive Treating Comments Type Date Date Clinician Penicillins Allergen Active Unknown Rash Yesy 9-28 Zack [id number] Medications Ordered Filled Start Stop Current Ordering Indication Dosage Frequency Signature Comments Components Medication Medication Date Date Medication? Clinician (SIG) Name Name No Known No Known No None None None Medications Medications For This For This Patient Patient Procedures This patient has no known procedures. Results This patient has no known results.
--- OUTSIDE RECORDS SUMMARY | 2019-11-16 17:04 | XMS REPORT ---
:1930 Author Organization [facility] Care Team Providers Name Role Phone Unavailable [...] Allergen Active Unknown Rash Yesy 9-28 Zack [id number] Medications Ordered Filled Start Stop Current Ordering Indication Dosage Frequency Signature Comments Components Medication Medication Date Date Medication? Clinician (SIG) Name Name No Known No Known No None None None Medications Medications For This For This Patient Patient Procedures This patient has no known procedures. Results This patient has no known results.
--- OUTSIDE RECORDS SUMMARY | 2019-11-16 17:04 | XMS REPORT | Continuity of Care Document ---
:1930 External Reference #:[id number] Author Name Yassine Slaughter, OD Address [address] [place] [address] Care Team Providers Name Role Phone Vitor PALMER, Jaiden - Internal Care Team Information [employer] Associate Professor [phone] Medicine Problems Active Problems Provider Date Bilateral primary open angle glaucoma Shreyas Jin M.D. Onset: 09/03/2016 Presence of intraocular lens Yassine Ayala O.D. Onset: 10/25/2015 Primary open-angle glaucoma, moderate stage Shreyas Jin M.D. Onset: 10/12 Convalescence after surgery Shreyas Jin M.D. Onset: 10/12/2015 Primary open-angle glaucoma, severe stage Shreyas Jin M.D. Onset: 2014 Central retinal vein occlusion Shreyas Jin M.D. Onset: 07/13/2015 Combined form of senile cataract Shreyas Jin M.D. Onset: 07/13/2015 Social History Type Date Description Comments Sex Unknown ETOH Use Occasionally consumes alcohol Tobacco Use Start: Unknown Patient has never smoked Smoking Status Reviewed: 10/16/19 Patient has never smoked Allergies, Adverse Reactions, Alerts Active Allergies Reaction Severity Comments Date Penicillins 07/13/2015 Timolol mild rash Mild 10/02/2016 Brinzolamide 10/31/2016 Joie 03/11/2017 Medications Active Medications SIG Qnty Indications Ordering Date Provider Pazeo Instill 1 Drop 2.5units Yassine Slaughter, 03/26/2018 0.7% Solution In Each Eye OD Every Morning Latanoprost Instill 1 Drop 7.5units Yassine Slaughter, 10/11/2017 0.005% In Each Eye OD Solution Every Evening Vitamin C Unknown W/Vitamin E [id number] Capsules Vitamin E Blend Unknown 400Unit Capsules Aspir-81 once per day by Unknown 81mg Tablets DR mouth Claritin Unknown 10mg Capsules Dexamethasone Unknown 6mg Tablets Revlimid Unknown 15mg Capsules Vitamin D High Potency Unknown 1000Unit Capsules Vitamin B12 1 by mouth Unknown 100mcg every day Tablets Magnesium Unknown 300mg Capsules Probiotic Unknown 250mg Capsules Immunizations Description No Information Available Vital Signs Date Vital Result Comment 10/16/2019 3:41pm Intraocular Pressure Right Eye 9 mmHg Tonopen Intraocular Pressure Left Eye 14 mmHg Tonopen 03/09/2019 3:14pm Intraocular Pressure Right Eye 4 mmHg tonopen error? Results Description No Information Available Procedures Description No Information Available Medical Devices Description No Information Available Encounters Description No Information Available Assessments Date Code Description Provider 10/16/2019 H34.8112 Central retinal vein occlusion, right eye, Yassine Slaughter , OD stable 10/16/2019 H40.1133 Primary open-angle glaucoma, bilateral, severe Yassine Slaughter, OD stage 10/16/2019 Z96.1 Presence of intraocular lens Yassine Slaughter, OD Plan of Treatment 10/16/2019 - Yassine Slaughter, [id number] Central retinal vein occlusion, right eye , [id number] Primary open-angle glaucoma, bilateral, severe [id number] Presence of intraocular lensFollow up:3 mos IOP/DFE, sooner PRN Functional Status Description No Information Available Mental Status Description No Information Available Referrals Description No Information Available
--- OUTSIDE RECORDS SUMMARY | 2019-11-16 17:04 | XMS REPORT ---
:1930 Author Organization [facility] Care Team Providers Name Role Phone Unavailable Unavailable Unavailable Problems This patient has no known problems. Allergies, Adverse Reactions, Alerts Allergy Name Allergy Status Severity Reaction(s) Onset Inactive Treating Comments Type Date Date Clinician Penicillins Allergen Active Unknown Rash Yesy 9 Zack [id number] Medications Ordered Filled Start Stop Current Ordering Indication Dosage Frequency Signature Comments Components Medication Medication Date Date Medication? Clinician (SIG) Name Name No Known No Known No None None None Medications Medications For This For This Patient Patient Procedures This patient has no known procedures. Results This patient has no known results.
--- OUTSIDE RECORDS SUMMARY | 2019-11-16 17:04 | XMS REPORT | Continuity of Care Document ---
:1930 External Reference #:[id number] Author Name Cliff Pearce M.D. 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 <1 pk per day Smoking Status Reviewed: 11/16/19 Started smoking in 20s quit smoking 1963. <1 pk per day Exercise Type/Frequency Exercises sporadically Allergies, Adverse Reactions, Alerts Active Allergies Reaction Severity Comments Date Penicillin Contact dermatitis Mild rash/hives/itching 08/10/2015 Medications Active Medications SIG Qnty Indications Ordering Date Provider Macrobid 1 tablet by mouth 14caps R30.0 Cliff Reese 11/16/2019 100mg Capsules every 12 hours Azucena Pearce for 7 days Vitamin B12 With Folic daily Jaiden Silvestre 07/30/2017 Acid Azucena Adler,FACP Vitamin C 1 by mouth every Unknown 1000mg Tablets day Vitamin E With one by mouth Unknown Silenium daily Katia Aspirin 1 by mouth every Unknown 81mg day Tablets Latanoprost one drop each eye Unknown 0.005% once a day Solution Dexamethasone 3 tabs once Unknown 4mg Tablets weekly Revlimid daily (three Unknown 15mg Capsules weeks on one week off) Magnesium otc once a day Unknown 300mg Capsules Vitamin D by mouth everyday Unknown 1000Unit Tablets Pazeo Unknown 0.7% Solution Tylenol as needed for Unknown 325mg Capsules pain Cranberry daily Unknown 200mg Capsules Refresh Tears 1-2 drops b/l to Unknown 0.5% eyes 3-4 times Solution daily as needed Medications Administered in Office Medication SIG Qnty Indications Ordering Provider Date Inj, Regadenoson, 0.1 MG Real Sánchez M.D., 09/19/2015 Injection [place]TY [place] Inj, Regadenoson, 0.1 MG DIOGENES Blanc 09/19/2015 Injection Technetium TC 99M Real Sánchez M.D., 09/19/2015 Tetrofosmin, Per Unit Dose BETTY [place] Up To 40 Millicuries Injection Technetium TC 99M DIOGENES Blanc 09/19/2015 Tetrofosmin, Per Unit Dose Up To 40 Millicuries Injection Immunizations CPT Code Status Date Vaccine Lot # 11073 Given 02/04/2018 Pneumococcal Conjugate Vaccine 13 Valent For [id number] Intramuscular Use 19305 Refused 08/10/2015 Influenza Virus Vaccine, Quadrivalent, Split, Preservative Free Vital Signs Date Vital Result Comment 11/16/2019 2:05pm Height 67 inches 5'7" Weight 149.00 lb Heart Rate 96 /min BP Systolic 108 mmHg BP Diastolic 68 mmHg Body Temperature 97.9 F O2 % BldC Oximetry 97 % BMI (Body Mass Index) 23.3 kg/m2 09/09/2019 2:41pm Height 67 inches 5'7" Weight 148.00 lb Heart Rate 68 /min BP Systolic 128 mmHg BP Diastolic 74 mmHg Respiratory Rate 12 /min Body Temperature 97.2 F Pain Level 0 BMI (Body Mass Index) 23.2 kg/m2 Results Test Acquired Date Facility Test Result H/L Range Note Ua Routine 11/16/2019 Executive Assistant In House Ua Specific [place] 1.025 Ua PH 5 Ua Color dark yellow Ua Appera cloudy Ua WBC ++ Ua Protein + Ua Glucose normal Ua Ketones + Ua Bilirubin negative Ua Urobilinogen 1 Ua Nitrite negative Ua Occult Blood ++ Comp Metabolic 08/14/2019 [facility] Sodium 140 mmol/L Normal 135-[address] [place] [address] [phone] Potassium 4.0 mmol/L Normal 3.5-5.0 Chloride 109 mmol/L Normal 101-111 Co2 Carbon Dioxide 24 mmol/L Normal 22-32 Anion Gap 7 mmol/L Normal 2-11 Glucose 138 mg/dL High 70-100 Blood Urea Nitrogen 17 mg/dL Normal 6-24 Creatinine 1.07 mg/dL High 0.51-0.95 BUN/Creatinine Ratio 15.9 Normal 8-20 Calcium 9.6 mg/dL Normal 8.6-10.3 Total Protein 6.1 g/dL Low 6.4-8.9 Albumin 3.5 g/dL Normal 3.2-5.2 Globulin 2.6 g/dL Normal 2-4 Albumin/Globulin Ratio 1.3 Normal 1-3 Total Bilirubin 0.50 mg/dL Normal 0.2-1.0 Alkaline Phosphatase 137 U/L High 34-104 Alt 11 U/L Normal 7-52 Ast 14 U/L Normal 13-39 Egfr Non- 48.3 >60 Egfr 58.4 >60 1 CBC Auto 08/14/2019 [facility] White Blood 8.5 10^3/uL Normal 3.5-10.[address] [place] [address] [phone] Red Blood Count 3.78 10^6/uL Normal 3.70-4.87 Hemoglobin 12.1 g/dL Normal 12.0-16.0 Hematocrit 36 % Normal 35-47 Mean Corpuscular Volume 95 fL Normal 80-97 Mean Corpuscular Hemoglobin 32 pg High 27-31 Mean Corpuscular HGB Conc 34 g/dL Normal 31-36 Red Cell Distribution Width 19 % High 10-15 Platelet Count 205 10^3/uL Normal 150-450 Mean Platelet Volume 9.7 fL Normal 7.4-10.4 Abs Neutrophils 5.9 10^3/uL Normal 1.5-7.7 Abs Lymphocytes 1.7 10^3/uL Normal 1.0-4.8 Abs Monocytes 0.9 10^3/uL High 0-0.8 Abs Eosinophils 0.0 10^3/uL Normal 0-0.6 Abs Basophils 0.1 10^3/uL Normal 0-0.2 Abs Nucleated RBC 0.0 10^3/uL Granulocyte % 69.1 % Lymphocyte % 19.6 % Monocyte % 10.7 % Eosinophil % 0.0 % Basophil % 0.6 % Nucleated Red Blood Cells % 0.0 Protein 08/14/2019 [facility] Total 6.2 Abnormal 6.3 - Electrophoresis [address] Protein(Pep) g/dL 7.9 [place] [address] [phone] Albumin 3.0 g/dL Abnormal 3.4-4.7 Alpha-1 Globulin 0.4 g/dL Abnormal 0.1-0.3 Alpha-2 Globulin 0.8 g/dL 0.6-1.0 Beta Globulin 1.0 g/dL 0.7-1.2 Gamma Globulin 1.0 g/dL 0.6-1.6 Albumin/Globulin Ratio 0.95 M Todd 0.4 g/dL Impression See Comment 2 Laboratory test 08/14/2019 [facility] Beta-2 4.25 Abnormal [address] Microglobulin g/[place] [address] [phone] Oto/Lambda 08/14/2019 [facility] Oto Free Light 0.1860 Abnormal 4 Free Light [address] Chain mg/[place] [address] [phone] Lambda Free Light Chain 1.05 mg/dL 5 Oto/Lambda Free Light Chain 0.1771 Abnormal 6 Type & Screen 07/22/2019 [facility] Patient Blood Type B Positive [address] [place] [address] [phone] Antibody Screen NEGATIVE Inr/Protime 07/22/2019 [facility] Inr 1.04 Normal 0.82-1.[address] [place] [address] [phone] Laboratory test 07/22/2019 [facility] Partial 35.6 Normal 26.0 -38.[address] [place] [address] Time PTT [phone] Urinalysis 07/22/2019 [facility] Urine Color Yellow [place] [address] [place] [address] [phone] Urine Appearance Cloudy Urine Specific [place] 1.019 Normal 1.010-1.030 Urine pH 6.0 Normal 5-9 Urine Urobilinogen Negative Negative Urine Ketones Negative Negative Urine Protein Negative Negative Urine Leukocytes Negative Negative Urine Blood Negative Negative Urine Nitrite Negative Negative Urine Bilirubin Negative Negative Urine Glucose Negative Negative Comp Metabolic 07/22/2019 [facility] Sodium 141 mmol/L Normal 135-[address] [place] [address] [phone] Potassium 3.8 mmol/L Normal 3.5-5.0 Chloride 110 mmol/L Normal 101-111 Co2 Carbon Dioxide 25 mmol/L Normal 22-32 Anion Gap 6 mmol/L Normal 2-11 Glucose 107 mg/dL High 70-100 Blood Urea Nitrogen 18 mg/dL Normal 6-24 Creatinine 1.06 mg/dL High 0.51-0.95 BUN/Creatinine Ratio 17.0 Normal 8-20 Calcium 8.8 mg/dL Normal 8.6-10.3 Total Protein 5.3 g/dL Low 6.4-8.9 Albumin 3.2 g/dL Normal 3.2-5.2 Globulin 2.1 g/dL Normal 2-4 Albumin/Globulin Ratio 1.5 Normal 1-3 Total Bilirubin 0.50 mg/dL Normal 0.2-1.0 Alkaline Phosphatase 59 U/L Normal 34-104 Alt 11 U/L Normal 7-52 Ast 11 U/L Low 13-39 Egfr Non- 48.8 >60 Egfr 59.1 >60 8 Laboratory test 07/22/2019 [facility] Troponin-I 0.03 <0.[address] (TnI) ng/mL [place], [place] [id number] [phone] CBC Auto Diff 07/22/2019 [facility] White Blood 5.9 Normal 3.5 -10.[address] Count 10^3/[place] [address] [phone] Red Blood Count 3.77 10^6/uL Normal 3.70-4.87 Hemoglobin 11.7 g/dL Low 12.0-16.0 Hematocrit 35 % Normal 35-47 Mean Corpuscular Volume 93 fL Normal 80-97 Mean Corpuscular Hemoglobin 31 pg Normal 27-31 Mean Corpuscular HGB Conc 33 g/dL Normal 31-36 Red Cell Distribution Width 17 % High 10-15 Platelet Count 123 10^3/uL Low 150-450 Mean Platelet Volume 9.8 fL Normal 7.4-10.4 Abs Neutrophils 3.5 10^3/uL Normal 1.5-7.7 Abs Lymphocytes 1.6 10^3/uL Normal 1.0-4.8 Abs Monocytes 0.8 10^3/uL Normal 0-0.8 Abs Eosinophils 0.0 10^3/uL Normal 0-0.6 Abs Basophils 0.1 10^3/uL Normal 0-0.2 Abs Nucleated RBC 0.0 10^3/uL Granulocyte % 58.4 % Lymphocyte % 26.1 % Monocyte % 14.3 % Eosinophil % 0.4 % Basophil % 0.8 % Nucleated Red Blood Cells % 0.1 Laboratory test 07/22/2019 [facility] Lactic Acid 1.1 mmol/L Normal 0.5-2.0 [address] [place] [id number] [phone] 1 Because ethnic data is not always readily available, this report includes an eGFR for both -Americans and non- Americans. The National Kidney Disease Education Program (NKDEP) does not endorse the use of the MDRD equation for patients that are not between the ages of 18 and 70, are , have extremes of body size, muscle mass, or nutritional status, or are non- or non-. According to the National Kidney Foundation, irrespective of diagnosis, the stage of the disease is based on the level of kidney function: Stage Description GFR(mL/min/1.73 m(2)) 1 Kidney damage with normal or decreased GFR 90 2 Kidney damage with mild decrease in GFR 60-89 3 Moderate decrease in GFR 30-59 4 Severe decrease in GFR 15-29 5 Kidney failure <15 (or dialysis) 2 RESULT: M-spike in gamma fraction. Test Performed by: [facility] [place] [address] Bearing Machine Operator: Dread Alicia M.D. Ph.D.; CLIA# [id number] 3 REFERENCE VALUE 1.21 - 2.70 Test Performed by: [place] [address] Bearing Machine Operator: Dread Alicia M.D. Ph.D.; CLIA# [id number] 4 REFERENCE VALUE 0.3300-1.94 5 REFERENCE VALUE 0.5700-2.63 6 REFERENCE VALUE 0.2600-1.65 Test Performed by: [place] [address] Bearing Machine Operator: Dread Alicia M.D. Ph.D.; CLIA# [id number] 7 Standard intensity warfarin therapeutic range: 2.0-3.0 High intensity warfarin therapeutic range: 2.5-3.5 8 Because ethnic data is not always readily available, this report includes an eGFR for both -Americans and non- Americans. The National Kidney Disease Education Program (NKDEP) does not endorse the use of the MDRD equation for patients that are not between the ages of 18 and 70, are , have extremes of body size, muscle mass, or nutritional status, or are non- or non-. According to the National Kidney Foundation, irrespective of diagnosis, the stage of the disease is based on the level of kidney function: Stage Description GFR(mL/min/1.73 m(2)) 1 Kidney damage with normal or decreased GFR 90 2 Kidney damage with mild decrease in GFR 60-89 3 Moderate decrease in GFR 30-59 4 Severe decrease in GFR 15-29 5 Kidney failure <15 (or dialysis) 9 Troponin-I testing on Plasma Separator Tubes (PST) has a known false positive rate of 0.20-0.40%. All positive troponins reflex immediately to secondary confirmatory testing. Using the [employer] DxI [employer] Access Immunoassay systems, the 99th percentile upper reference limit was demonstrated to be < 0.03 ng/mL. 10 [facility] Severe Sepsis and Septic Shock Management Bundle Measure requires all lactic acids initially measuring >2.0 mmol/L be repeated. Procedures Date Code Description Status 07/24/2019 62032 FX TX Inter/Myrtle Or Sub Chanteric Femoral FX W/Implant Completed 07/07/2019 57945 ECHO Transthorasic Realtime 2D W Doppler & Color Flow Hosp Completed Medical Devices Description No Information Available Encounters Type Date Location Provider Dx Diagnosis Office Visit 09/07/2019 [facility] Sandra Song, S72.144D Nondisp intertroch 10:30a D.O. fx r femur, subs for clos fx w routn heal C90.01 Multiple myeloma in remission Office Visit 08/21/2019 8:45a [facility] Sandra Song, Z04.89 Encounter for D.O. examination and observation for oth reasons W19.xxxA Unspecified fall, initial encounter Office Visit 08/04/2019 8:15a [facility] Deloris Sultana, LEAD SLOT TECHNICIAN R60.0 Localized edema Z47.89 Encounter for other orthopedic aftercare Office Visit 07/31/2019 8:45a [facility] Sandra Song, S72.144D Nondisp D.O. intertroch fx r femur, subs for clos fx w routn heal C90.01 Multiple myeloma in remission Office Visit 07/23/2019 Raf Self Z01.810 Encounter for 4:42p Cardiology Azucena Torres preprocedural cardiovascular examination S72.001A Fracture of unsp part of neck of right femur, init I44.7 Left bundle-branch block, unspecified R94.31 Abnormal electrocardiogram [ECG] [EKG] Office 07/23/2019 [facility] Juliann S72.001A Fracture of unsp part Visit 10:13a Assjeramy restrepo M.D. of neck of right Hospitalists femur, init Office 07/23/2019 Raf Nolan S72.144A Nondisplaced Visit 1:34p [facility] of right femur, init Office 07/22/2019 [facility] Deloris S72.001A Fracture of unsp part Visit 10:13a Assocjeramy, LEAD SLOT TECHNICIAN of neck of right Hospitalists femur, init Assessments Date Code Description Provider 11/16/2019 R30.0 Dysuria Cliff Pearce M.D. 09/09/2019 S72.144D Nondisplaced intertrochanteric fracture Ovidio Farias M.D. of right femur, subsequent encounter for closed fracture with routine healing 09/07/2019 S72.144D Nondisplaced intertrochanteric fracture Sandra Song D.O. of right femur, subsequent encounter for closed fracture with routine healing 09/07/2019 C90.01 Multiple myeloma in remission Konrad AppiahOArmani 08/21/2019 Z04.89 Encounter for examination and Sandra Song D.O. observation for other specified reasons 08/21/2019 W19.xxxA Unspecified fall, initial encounter Sandra Song D.O. 08/12/2019 S72.144D Nondisplaced intertrochanteric fracture Ovidio Farias M.D. of right femur, subsequent encounter for closed fracture with routine healing 08/04/2019 R60.0 Localized edema Deloris Sultana, NADINE 08/04/2019 Z47.89 Encounter for other orthopedic aftercare Deloris Sultana, NADINE 07/31/2019 S72.144D Nondisplaced intertrochanteric fracture Sandra Song D.O. of right femur, subsequent encounter for closed fracture with routine healing 07/31/2019 C90.01 Multiple myeloma in remission Konrad AppiahOArmani 07/25/2019 S72.144D Nondisplaced intertrochanteric fracture Ros eMary Lugo PA-C of right femur, subsequent encounter for closed fracture with routine healing 07/24/2019 S72.144D Nondisplaced intertrochanteric fracture Ovidio Farias M.D. of right femur, subsequent encounter for closed fracture with routine healing 07/23/2019 Z01.810 Encounter for preprocedural Yogesh Torres M.D. cardiovascular examination 07/23/2019 S72.001A Fracture of unspecified part of neck of Juliann Medrano M.D. right femur, initial encounter for closed fracture 07/23/2019 S72.001A Fracture of unspecified part of neck of Yogesh Torres M.D. right femur, initial encounter for closed fracture 07/23/2019 S72.144A Nondisplaced intertrochanteric fracture Ovidio Farias M.D. of right femur, initial encounter for closed fracture 07/23/2019 I44.7 Left bundle-branch block, unspecified Yogesh Torres M.D. 07/23/2019 R94.31 Abnormal electrocardiogram [ECG] [EKG] Yogesh Torres M.D. 07/22/2019 S72.001A Fracture of unspecified part of neck of Deloris [place], NADINE right femur, initial encounter for closed fracture 07/07/2019 R06.02 Shortness of breath Pk Holbrook M.D. Plan of Treatment 11/16/2019 - Cliff Pearce M.D.R30.0 DysuriaNew Medication:Macrobid 100 mg - 1 tablet by mouth every 12 hours for 7 daysComments:Urinary frequency, odor sx over the past week or so; UA with (+) blood, WBCs suggestive of UTI. Start Macrobid pending culture results. Functional Status Description No Information Available Mental Status Description No Information Available Referrals Description No Information Available
[2019-11-16 18:07] LABS: Hematocrit 37 % (35-47); Hemoglobin 12.6 g/dL (12.0-16.0); Mean Corpuscular HGB Conc 34 g/dL (31-36); Mean Corpuscular Hemoglobin 32 pg (27-31); Mean Corpuscular Volume 94 fL (80-97); Mean Platelet Volume 11.3 fL (7.4-10.4); Platelet Count 105 10^3/uL (150-450); Red Blood Count 3.98 10^6 /uL (3.70-4.87); Red Cell Distribution Width 14 % (10-15); White Blood Count 6.4 10^3/uL (3.5-10.8)
[2019-11-16 18:17] LABS: Urine Appearance Cloudy; Urine Bilirubin Negative (Negative); Urine Blood 1+ (Negative); Urine Color Yellow; Urine Glucose 1+(50 mg/dL) (Negative); Urine Ketones Negative (Negative); Urine Nitrite Negative (Negative); Urine Protein 1+(30 mg/dL) (Negative); Urine Specific Gravity 1.018 (1.010-1.030); Urine Urobilinogen Positive (Negative)
[2019-11-16] MEDS ORDERED: NS 0.9% 1000 ML** 1,000 ML IV ONE ×2 (18:22→18:30)
[2019-11-16] MEDS ORDERED: cefTRIAXone(*) 1 GM in NS 0.9% 50 ML* 50 ML IVPB ONE (18:30)
[2019-11-16 18:33] LABS: Troponin I 0.03 ng/mL (<0.03)
[2019-11-16 18:38] LABS: Urine Bacteria Absent (Absent); Urine Red Blood Cell Trace(0-2/hpf) (Absent); Urine Squamous Epithelial Cell Present (Absent); Urine White Blood Cell 3+(>20/hpf) (Absent)
[2019-11-16 18:40] LABS: ABS Eosinophils 0.1 10^3/ul (0-0.6); ABS Lymphocytes 1.2 10^3/ul (1.0-4.8); ABS Monocytes 0.6 10^3/ul (0-0.8); ABS Neutrophils 4.4 10^3/ul (1.5-7.7); Eosinophil % 0.9 %; Lymphocyte % 18.4 %; Nucleated Red Blood Cells % 0.1
[2019-11-16 18:49] LABS: ALT 9 U/L (7-52); AST 9 U/L (13-39); Albumin 3.1 g/dL (3.2-5.2); Albumin/Globulin Ratio 1.1 (1-3); Alkaline Phosphatase 74 U/L (34-104); Anion Gap 9 mmol/L (2-11); BUN/Creatinine Ratio 15.4 (8-20); Blood Urea Nitrogen 24 mg/dL (6-24); CO2 Carbon Dioxide 23 mmol/L (22-32); Calcium 8.8 mg/dL (8.6-10.3); Chloride 111 mmol/L (101-111); EGFR African American 37.8 (>60); EGFR Non-African American 31.2 (>60); Globulin 2.9 g/dL (2-4); Glucose 113 mg/dL (70-100); Potassium 3.6 mmol/L (3.5-5.0); Sodium 143 mmol/L (135-145)
--- NOTE | 2019-11-16 19:29 | ED ---
Complex/Multi-Sys Presentation - HPI Summary HPI Summary: Patient is an 88 y/o F presenting to the ED for a chief complaint of urinary frequency, fatigue, and left LE weakness. Patient is present with her son. For the last week, she has also had decreased appetite and back pain. Two weeks ago , she had cold symptoms. Recently, patient was diagnosed with a UTI. Patient denies any fever, chills, erythema of eyes, sore throat, chest pain, shortness of breath, cough, abdominal pain, nausea, vomiting, dysuria, hematuria, edema, rash, or dizziness. PSHx is significant for right femur fracture repair. - History Of Current Complaint Chief Complaint: EDWeakness Time Seen by Provider: 11/16/19 18:22 Hx Obtained From: Patient, Family/Research Technician - Son Onset/Duration: Sudden Onset, Still Present Timing: Constant Severity Currently: Moderate Severity Initially: Moderate Associated Signs And Symptoms: Positive: Weakness - Left LE. Negative: SOB, Wheezing, Chest Pain, Edema, Nausea, Vomiting, Abdominal Pain, Dysuria, Fever - Allergies/Home Medications Allergies/Adverse Reactions: Allergies Allergy/AdvReac Type Severity Reaction Status Date / Time Penicillins Allergy Itching Verified 04/29/18 14:57 Home Medications: Home Medications Cholecalciferol (Vitamin D3) [Vitamin D3] 1,000 unit PO DAILY 11/16/19 [History Confirmed 11/16/19] Lenalidomide (NF) [Revlimid (NF)] 25 mg PO DAILY 11/16/19 [History Confirmed 07/26] PMH/Surg Hx/FS Hx/Imm Hx Previously Healthy: Yes Endocrine/Hematology History: Denies: Hx Anticoagulant Therapy, Hx Diabetes Cardiovascular History: Reports: Other Cardiovascular Problems/Disorders - Multiple Myeloma Denies: Hx Hypertension, Hx Pacemaker/ICD Respiratory History: Denies: Hx Chronic Obstructive Pulmonary Disease (COPD) History: Denies: Hx Dialysis, Hx Renal Disease Musculoskeletal History: Reports: Hx Arthritis - HANDS Denies: Hx Back Problems, Other Musculoskeletal History Sensory History: Reports: Hx Cataracts - BILATERAL, Hx Glaucoma - BILATERAL Denies: Hx Contacts or Glasses, Hx Deafness, Hx Hearing Aid, Hx Hearing Problem Opthamlomology History: Reports: Hx Cataracts - BILATERAL, Hx Glaucoma - BILATERAL Denies: Hx Contacts or Glasses EENT History: Denies: Hx Deafness Neurological History: Denies: Hx Dementia, Hx Seizures Psychiatric History: Denies: Hx Panic Disorder - Cancer History Cancer Type, Location and Year: MULTIPLE MYELOMA Hx Hematologic Symptoms: Yes Hx Chemotherapy: No Hx Radiation Therapy: No Hx Palliative Cancer Treatment: No - Surgical History Surgical History: Yes Surgery Procedure, Year, and Place: HERNIA REPAIR-1980. cataract surgery Hx Anesthesia Reactions: No Infectious Disease History: No Infectious Disease History: Denies: Traveled Outside the [place] in Last 30 Days - Family History Known Family History: Positive: Other - Prostate CA, tuberculosis - Social History Occupation: Retired Lives: With Family Alcohol Use: Rare Alcohol Amount: 3 x/week Hx Substance Use: No Substance Use Type: Reports: None Hx Tobacco Use: Yes Smoking Status (MU): Former Smoker Type: Cigarettes Amount Used/How Often: < 1 PPD X5 YEARS Have You Smoked in the Last Year: No Review of Systems Positive: Fatigue, Other - Positive decreased appetite. Negative: Fever, Chills Negative: Erythema Negative: Sore Throat Negative: Chest Pain Negative: Shortness Of Breath, Cough Negative: Abdominal Pain, Vomiting, Nausea Positive: frequency - Urinary. Negative: dysuria, hematuria Positive: Myalgia - Back. Negative: Edema Negative: Rash Neurological: Other - Negative dizziness Positive: Weakness - Left LE. Negative: Headache All Other Systems Reviewed And Are Negative: Yes Physical Exam - Summary Physical Exam Summary: Constitutional: Well-developed, Well-nourished, Alert. (-) Distressed Skin: Warm, Dry HENT: Normocephalic; Atraumatic Eyes: Conjunctiva normal Neck: Musculoskeletal ROM normal neck. (-) JVD, (-) Stridor, (-) Tracheal deviation Cardio: Rhythm regular, rate normal, Heart sounds normal; Intact distal pulses; The pedal pulses are 2+ and symmetric. Radial pulses are 2+ and symmetric. (-) Murmur Pulmonary/Chest wall: Effort normal. (-) Respiratory distress, (-) Wheezes, (-) Rales Abd: Soft, (-) tenderness, (-) Distension, (-) Guarding, (-) Rebound Musculoskeletal: (-) Edema. Bilateral CVA tenderness Lymph: (-) Cervical adenopathy Neuro: Alert, Oriented x3 Psych: Mood and affect Normal Triage Information Reviewed: Yes Vital Signs On Initial Exam: Initial Vitals Temp Pulse Resp BP Pulse Ox 97.5 F 96 16 106/67 99 11/16/19 16:46 11/16/19 16:46 11/16/19 16:46 11/16/19 16:46 11/16/19 16:46 Vital Signs Reviewed: Yes Procedures - Sedation Patient Received Moderate/Deep Sedation with Procedure: No Diagnostics - Vital Signs Vital Signs Temp Pulse Resp BP Pulse Ox 11/16/19 17:28 86 107/49 96 11/16/19 17:00 95 98 11/16/19 16:59 93 97/65 98 11/16/19 16:51 100 98 11/16/19 16:46 97.5 F 96 16 106/67 99 - Laboratory Lab Results: Lab Results 11/16/19 11/16/19 11/16/19 Range/Units 17:58 17:58 17:58 WBC 6.4 (3.5-10.8) 10^3/uL RBC 3.98 (3.70-4.87) 10^6 /uL Hgb 12.6 (12.0-16.0) g/dL Hct 37 (35-47) % MCV 94 (80-97) fL MCH 32 H (27-31) pg MCHC 34 (31-36) g/dL RDW 14 (10-15) % Plt Count 105 L (150-450) 10^3/uL MPV 11.3 H (7.4-10.4) fL Neut % (Auto) 70.0 % Lymph % (Auto) 18.4 % Waller % (Auto) 10.2 % Eos % (Auto) 0.9 % Baso % (Auto) 0.5 % Absolute Neuts (auto) 4.4 (1.5-7.7) 10^3/ul Absolute Lymphs (auto) 1.2 (1.0-4.8) 10^3/ul Absolute Monos (auto) 0.6 (0-0.8) 10^3/ul Absolute Eos (auto) 0.1 (0-0.6) 10^3/ul Absolute Basos (auto) 0.0 (0-0.2) 10^3/ul Absolute Nucleated RBC 0.0 10^3/ul Nucleated RBC % 0.1 Sodium 143 (135-145) mmol/L Potassium 3.6 (3.5-5.0) mmol/L Chloride 111 (101-111) mmol/L Carbon Dioxide 23 (22-32) mmol/L Anion Gap 9 (2-11) mmol/L BUN 24 (6-24) mg/dL Creatinine 1.56 H (0.51-0.95) mg/dL Est GFR ( Amer) 37.8 (>60) Est GFR (Non-Af Amer) 31.2 (>60) BUN/Creatinine Ratio 15.4 (8-20) Glucose 113 H (70-100) mg/dL Lactic Acid 1.1 (0.5-2.0) mmol/L Calcium 8.8 (8.6-10.3) mg/dL Magnesium 2.0 (1.9-2.7) mg/dL Total Bilirubin 0.60 (0.2-1.0) mg/dL AST 9 L (13-39) U/L ALT 9 (7-52) U/L Alkaline Phosphatase 74 (34-104) U/L Troponin I 0.03 H* (<0.03) ng/mL Total Protein 6.0 L (6.4-8.9) g/dL Albumin 3.1 L (3.2-5.2) g/dL Globulin 2.9 (2-4) g/dL Albumin/Globulin Ratio 1.1 (1-3) TSH 0.00 L (0.34-5.60) mcIU/mL Urine Color Urine Appearance Urine pH (5-9) Ur Specific [employer] (1.010-1.030) Urine Protein (Negative) Urine Ketones (Negative) Urine Blood (Negative) Urine Nitrate (Negative) Urine Bilirubin (Negative) Urine Urobilinogen (Negative) Ur Leukocyte Esterase (Negative) Urine WBC (Auto) (Absent) Urine RBC (Auto) (Absent) Ur Squamous Epith Cells (Absent) Urine Bacteria (Absent) Hyaline Casts (Absent) Urine Glucose (Negative) 11/16/19 Range/Units 18:05 WBC (3.5-10.8) 10^3/uL RBC (3.70-4.87) 10^6 /uL Hgb (12.0-16.0) g/dL Hct (35-47) % MCV (80-97) fL MCH (27-31) pg MCHC (31-36) g/dL RDW (10-15) % Plt Count (150-450) 10^3/uL MPV (7.4-10.4) fL Neut % (Auto) % Lymph % (Auto) % Waller % (Auto) % Eos % (Auto) % Baso % (Auto) % Absolute Neuts (auto) (1.5-7.7) 10^3/ul Absolute Lymphs (auto) (1.0-4.8) 10^3/ul Absolute Monos (auto) (0-0.8) 10^3/ul Absolute Eos (auto) (0-0.6) 10^3/ul Absolute Basos (auto) (0-0.2) 10^3/ul Absolute Nucleated RBC 10^3/ul Nucleated RBC % Sodium (135-145) mmol/L Potassium (3.5-5.0) mmol/L Chloride (101-111) mmol/L Carbon Dioxide (22-32) mmol/L Anion Gap (2-11) mmol/L BUN (6-24) mg/dL Creatinine (0.51-0.95) mg/dL Est GFR ( Amer) (>60) Est GFR (Non-Af Amer) (>60) BUN/Creatinine Ratio (8-20) Glucose (70-100) mg/dL Lactic Acid (0.5-2.0) mmol/L Calcium (8.6-10.3) mg/dL Magnesium (1.9-2.7) mg/dL Total Bilirubin (0.2-1.0) mg/dL AST (13-39) U/L ALT (7-52) U/L Alkaline Phosphatase (34-104) U/L Troponin I (<0.03) ng/mL Total Protein (6.4-8.9) g/dL Albumin (3.2-5.2) g/dL Globulin (2-4) g/dL Albumin/Globulin Ratio (1-3) TSH (0.34-5.60) mcIU/mL Urine Color Yellow Urine Appearance Cloudy Urine pH 5.0 (5-9) Ur Specific [employer] 1.018 (1.010-1.030) Urine Protein 1+(30 mg/dl) A (Negative) Urine Ketones Negative (Negative) Urine Blood 1+ A (Negative) Urine Nitrate Negative (Negative) Urine Bilirubin Negative (Negative) Urine Urobilinogen Positive A (Negative) Ur Leukocyte Esterase 3+ A (Negative) Urine WBC (Auto) 3+(>20/hpf) A (Absent) Urine RBC (Auto) Trace(0-2/hpf) (Absent) Ur Squamous Epith Cells Present A (Absent) Urine Bacteria Absent (Absent) Hyaline Casts Present A (Absent) Urine Glucose 1+(50 mg/dl) A (Negative) Result Diagrams: 11/16/19 17:58 11/16/19 17:58 Lab Statement: Any lab studies that have been ordered have been reviewed, and results considered in the medical decision making process. - EKG 18:59 Cardiac Rate: NL - 86 BPM EKG Rhythm: Sinus Rhythm ST Segment: Normal Ectopy: None Summary of EKG Findings: EKG at 18:59 shows normal sinus rhythm with 86 BPM, LBBB which is old, no STEMI. Reviewed and interpreted by Dr. Zavaleta. Complex Multi-Symp Course/Dx Course Of Treatment: Patient is an 88 y/o F presenting to the ED for a chief complaint of urinary frequency, fatigue, and left LE weakness. Patient is present with her son. For the last week, she has also had decreased appetite and back pain. Two weeks ago, she had cold symptoms. Recently, patient was diagnosed with a UTI. Patient denies any fever, chills, erythema of eyes, sore throat, chest pain, shortness of breath, cough, abdominal pain, nausea, vomiting , dysuria, hematuria, edema, rash, or dizziness. PSHx is significant for right femur fracture repair. On exam, bilateral CVA tenderness. In the ED course, patient was given ceftriaxone 1 gm IVPB and IV fluids. Laboratory abnormal findings: MCH 32, plt count 105, MPV 11.3, creatinine 1.56, glucose 113, AST 9, troponin I 0.03, total protein 6, albumin 3.1, TSH 0, urine protein 1+, urine blood 1+, urine urobilinogen positive, urine leukocyte esterase 3+, urine WBC 3+ , urine squamous epith cells present, hyaline casts present, and urine glucose 1 +. EKG at 18:59 shows normal sinus rhythm with 86 BPM, LBBB which is old, no STEMI. At 18:45, Dr. Hood reviewed the patients case and agrees to admit the patient with a diagnosis of ascending UTI and elevated troponin. Patient will be admitted to [facility] [place] with a diagnosis of ascending UTI and elevated troponin. - Diagnoses Provider Diagnoses: UTI (urinary tract infection), Elevated troponin - Physician Notifications Discussed Care Of Patient With: Eduardo Hood - At 18:45, Dr. Hood reviewed the patients case and agrees to admit the patient with a diagnosis of ascending UTI and elevated troponin. Time Discussed With Above Provider: 18:45 Instructed by Provider To: Admit As Inpatient Discharge ED - Sign-Out/Discharge Documenting (check all that apply): Patient Departure - Admit - Discharge Plan Condition: Stable Disposition: ADMITTED TO [facility] Referrals: Cliff Pearce MD [Primary Care Provider] - - Attestation Statements Document Initiated by Scribe: Yes Documenting Scribe: Pinky Avitia Provider For Whom Scribe is Documenting (Include Credential): Yahir Zavaleta MD Scribe Attestation: Pinky Viera, scribed for Yahir Zavaleta MD on 11/16/19 at 1926. Status of Scribe Document: Ready
[2019-11-16] MEDS ORDERED: Acetaminophen TAB* 325 MG PO PRN (20:07)
[2019-11-16 21:05] LABS: Free T4 2.07 ng/dL (0.61-1.12)
[2019-11-16] MEDS: Enoxaparin(*) 30 MG/0.3 ML SYR SUBCUT SCH (21:36)
[2019-11-16 22:12] LABS: Troponin I 0.03 ng/mL (<0.03)
[2019-11-16] MEDS: Latanoprost 0.005%* 2.5 ml BTL BOTH EYES SCH (22:24)
[2019-11-16] MEDS: NS 0.9% 1000 ML** 1,000 ML IV SCH (22:24)
[2019-11-16] MEDS: Polyethyl Glycol/Propylene Gly OPHTH.SOLN BOTH EYES SCH (22:24)
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
[2019-11-17 06:12] LABS: ABS Eosinophils 0.1 10^3/ul (0-0.6); ABS Lymphocytes 1.2 10^3/ul (1.0-4.8); ABS Monocytes 0.6 10^3/ul (0-0.8); Eosinophil % 2.3 %; Hematocrit 32 % (35-47); Hemoglobin 10.5 g/dL (12.0-16.0); Lymphocyte % 24.6 %; Mean Corpuscular HGB Conc 33 g/dL (31-36); Mean Corpuscular Hemoglobin 31 pg (27-31); Mean Corpuscular Volume 95 fL (80-97); Nucleated Red Blood Cells % 0.2; Red Blood Count 3.36 10^6 /uL (3.70-4.87); Red Cell Distribution Width 14 % (10-15)
[2019-11-17 06:13] LABS: Mean Platelet Volume 11.7 fL (7.4-10.4); Platelet Count 81 10^3/uL (150-450)
[2019-11-17 06:13] LABS: BUN/Creatinine Ratio 16.8 (8-20); Calcium 7.8 mg/dL (8.6-10.3); EGFR African American 58.4 (>60); EGFR Non-African American 48.3 (>60); Potassium 3.3 mmol/L (3.5-5.0)
[2019-11-17] MEDS: Aspirin EC TAB* 81 MG TAB.EC PO SCH (09:31)
[2019-11-17] MEDS: OLOPATADINE 0.7% BOTH EYES SCH (10:30)
[2019-11-17] MEDS: LENALIDOMIDE 15 MG PO SCH (10:30)
--- NOTE | 2019-11-17 14:30 | PN ---
Subjective Date of Service: 11/17/19 Interval History: HOSPITALIST PROGRESS NOTE Patient seen and examined at bedside. Care reviewed and d/w Hanny Reyes RN. She feels very tired after working with PT. Family History: Unchanged from Admission Social History: Unchanged from Admission Past Medical History: Unchanged from Admission Objective Active Medications: Acetaminophen (Tylenol Tab*) 650 mg PO Q4H PRN PRN Reason: MILD PAIN or TEMP > 100.4 Aspirin (Aspirin Ec Tab*) 81 mg PO QAM [facility] Last Admin: 11/17/19 09:31 Dose: 81 mg Enoxaparin Sodium (Lovenox(*)) 30 mg SUBCUT Q24H [facility] Last Admin: 11/16/19 21:36 Dose: 30 mg Sodium Chloride (Ns 0.9% 1000 Ml) 1,000 mls @ 75 mls/hr IV PER RATE [facility] Last Admin: 11/16/19 22:24 Dose: 75 mls/hr Ceftriaxone Sodium 1 gm/ (Sodium Chloride) 50 mls @ 100 mls/hr IVPB Q24H [facility] Latanoprost (Xalatan 0.005%*) 1 drop BOTH EYES BEDTIME [facility] Last Admin: 11/16/19 22:24 Dose: 1 drop Pto: Lenalidomide ( (Nf) 15 Mg Cap) 1 dose PO DAILY [facility] Last Admin: 11/17/19 10:30 Dose: 1 dose Pto Nf Med* (Pazeo 0 (.7% 1 Drop)) 1 drop BOTH EYES QAM [facility] Last Admin: 11/17/19 10:30 Dose: 1 drop Polyethyl Glycol/Propylene Glycol (Lubricant Eye Drops) 1 drop BOTH EYES BEDTIME [facility] Last Admin: 11/16/19 22:24 Dose: 1 drop Vital Signs - 8 hr 11/17/19 11/17/19 07:41 10:55 Temperature 98.5 F 97.4 F Pulse Rate 83 74 Respiratory 22 20 Rate Blood Pressure 132/62 119/48 (mmHg) O2 Sat by Pulse 100 100 Oximetry Oxygen Devices in Use Now: None Appearance: Elderly lady lying in bed in NAD Eyes: No Scleral Icterus Ears/Nose/Mouth/Throat: Mucous Membranes Moist Neck: Trachea Midline Respiratory: Symmetrical Chest Expansion and Respiratory Effort, Clear to Auscultation Cardiovascular: RRR - Normal S1 and S2 Abdominal: NL Sounds; No Tenderness; No Distention Neurological: NL Muscle Strength and Tone, - - Sleeping, arousable to voice Result Diagrams: 11/17/19 05:39 11/17/19 05:30 Assess/Plan/Problems-Billing Assessment: Mrs Barrera is an 88yo F with PMH of multiple myeloma on Revlimid and dexamethasone, who presented to ED with weakness, found to have an UTI. - Patient Problems (1) UTI (urinary tract infection) Comment: - Awaiting urine culture. - Continue Ceftriaxone. (2) JEISON (acute kidney injury) Comment: - Improving. - Continue to monitor. (3) Multiple myeloma Comment: - Mulitple myeloma seems to be well controlled with current regimen - received Dexamethasone Saturday and will continue Revlimid (4) DVT prophylaxis Comment: - Lovenox. (5) Full code status Status and Disposition: Son update at bedside.
[2019-11-17] MEDS: NS 0.9% 1000 ML** 1,000 ML IV SCH (18:33)
[2019-11-17] MEDS: Enoxaparin(*) 30 MG/0.3 ML SYR SUBCUT SCH (19:44)
[2019-11-17] MEDS: Latanoprost 0.005%* 2.5 ml BTL BOTH EYES SCH (19:44)
[2019-11-17] MEDS: Polyethyl Glycol/Propylene Gly OPHTH.SOLN BOTH EYES SCH (19:44)
[2019-11-17] MEDS: cefTRIAXone(*) 1 GM in NS 0.9% 50 ML* 50 ML IVPB SCH (19:44)
[2019-11-17] MEDS: KCL 10 MEQ/50 ML IVPREMIX* 10 MEQ/50 ML BAG IV SCH ×2 (21:42→22:52)
[2019-11-18] MEDS: KCL 10 MEQ/50 ML IVPREMIX* 10 MEQ/50 ML BAG IV SCH (00:54)
[2019-11-18 08:27] LABS: ABS Basophils 0.1 10^3/ul (0-0.2); ABS Eosinophils 0.1 10^3/ul (0-0.6); ABS Lymphocytes 1.7 10^3/ul (1.0-4.8); ABS Monocytes 0.7 10^3/ul (0-0.8); Eosinophil % 2.6 %; Hematocrit 35 % (35-47); Hemoglobin 11.5 g/dL (12.0-16.0); Lymphocyte % 30.9 %; Mean Corpuscular HGB Conc 33 g/dL (31-36); Mean Corpuscular Hemoglobin 31 pg (27-31); Mean Corpuscular Volume 94 fL (80-97); Mean Platelet Volume 11.9 fL (7.4-10.4); Platelet Count 80 10^3/uL (150-450); Red Blood Count 3.69 10^6 /uL (3.70-4.87); Red Cell Distribution Width 14 % (10-15); White Blood Count 5.5 10^3/uL (3.5-10.8)
[2019-11-18 08:48] LABS: BUN/Creatinine Ratio 13.8 (8-20); Calcium 8.2 mg/dL (8.6-10.3); EGFR African American 67.8 (>60); EGFR Non-African American 56.1 (>60); Potassium 3.9 mmol/L (3.5-5.0)
[2019-11-18] MEDS: LENALIDOMIDE 15 MG PO SCH (10:09)
[2019-11-18] MEDS: OLOPATADINE 0.7% BOTH EYES SCH (10:09)
[2019-11-18] MEDS: Aspirin EC TAB* 81 MG TAB.EC PO SCH (10:09)
--- NOTE | 2019-11-18 14:47 | PN ---
Subjective Date of Service: 11/18/19 Interval History: HOSPITALIST PROGRESS NOTE Patient seen and examined at bedside. Care reviewed and d/w Jatin Cobos RN. She is in good spirits today, anxious for discharge. Family History: Unchanged from Admission Social History: Unchanged from Admission Past Medical History: Unchanged from Admission Objective Active Medications: Acetaminophen (Tylenol Tab*) 650 mg PO Q4H PRN PRN Reason: MILD PAIN or TEMP > 100.4 Aspirin (Aspirin Ec Tab*) 81 mg PO QAM [facility] Last Admin: 11/18/19 10:09 Dose: 81 mg Enoxaparin Sodium (Lovenox(*)) 30 mg SUBCUT Q24H [facility] Last Admin: 11/17/19 19:44 Dose: 30 mg Ceftriaxone Sodium 1 gm/ (Sodium Chloride) 50 mls @ 100 mls/hr IVPB Q24H [facility] Last Admin: 11/17/19 19:44 Dose: 100 mls/hr Latanoprost (Xalatan 0.005%*) 1 drop BOTH EYES BEDTIME [facility] Last Admin: 11/17/19 19:44 Dose: 1 drop Pto: Lenalidomide ( (Nf) 15 Mg Cap) 1 dose PO DAILY [facility] Last Admin: 11/18/19 10:09 Dose: 1 dose Pto Nf Med* (Pazeo 0 (.7% 1 Drop)) 1 drop BOTH EYES QAM [facility] Last Admin: 11/18/19 10:09 Dose: 1 drop Polyethyl Glycol/Propylene Glycol (Lubricant Eye Drops) 1 drop BOTH EYES BEDTIME [facility] Last Admin: 11/17/19 19:44 Dose: 1 drop Vital Signs - 8 hr 11/18/19 11:14 Temperature 97.2 F Pulse Rate 81 Respiratory 16 Rate Blood Pressure 145/66 (mmHg) O2 Sat by Pulse 100 Oximetry Oxygen Devices in Use Now: None Appearance: Pleasant elderly lady sitting up in a chair in NAD Eyes: No Scleral Icterus Ears/Nose/Mouth/Throat: Mucous Membranes Moist Neck: Trachea Midline Respiratory: Symmetrical Chest Expansion and Respiratory Effort, Clear to Auscultation Cardiovascular: RRR - Normal S1 and S2 Neurological: Alert and Oriented x 3, NL Muscle Strength and Tone Result Diagrams: 11/18/19 07:56 11/18/19 07:56 Assess/Plan/Problems-Billing Assessment: Mrs Barrera is an 88yo F with PMH of multiple myeloma on Revlimid and dexamethasone, who presented to ED with weakness, found to have an UTI. - Patient Problems (1) UTI (urinary tract infection) Comment: - Awaiting urine culture - called Laboratory - culture is growing two different bacteria not yet identified. - Continue Ceftriaxone. (2) JEISON (acute kidney injury) Comment: - Resolved. (3) Multiple myeloma Comment: - Mulitple myeloma seems to be well controlled with current regimen - received Dexamethasone Saturday and will continue Revlimid (4) DVT prophylaxis Comment: - Lovenox. (5) Full code status Status and Disposition: Son update at bedside. Anticipate d/c in AM depending on urine culture results.
[2019-11-18] MEDS ORDERED: Senna TAB 8.6 mg* TAB PO PRN (16:32)
[2019-11-18] MEDS: cefTRIAXone(*) 1 GM in NS 0.9% 50 ML* 50 ML IVPB SCH (19:35)
[2019-11-18] MEDS: Docusate CAP* 100 MG PO SCH (20:11)
[2019-11-18] MEDS: Enoxaparin(*) 30 MG/0.3 ML SYR SUBCUT SCH (20:11)
[2019-11-18] MEDS: Latanoprost 0.005%* 2.5 ml BTL BOTH EYES SCH (20:15)
[2019-11-18] MEDS: Polyethyl Glycol/Propylene Gly OPHTH.SOLN BOTH EYES SCH (20:20)
[2019-11-19 07:57] VITALS: BP 137/63
[2019-11-19] MEDS: Aspirin EC TAB* 81 MG TAB.EC PO SCH (09:03)
[2019-11-19] MEDS: Docusate CAP* 100 MG PO SCH (09:04)
[2019-11-19] MEDS: LENALIDOMIDE 15 MG PO SCH (09:06)
[2019-11-19] MEDS: OLOPATADINE 0.7% BOTH EYES SCH (09:06)
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
== END 2019-11-19 12:00 | disposition home or self-care (01) | DRG 690 ==
LOC: ED 16:45 → MEDTELE 20:07 → OBSVTOIN 11-18 14:39
PROVIDERS: ADMIT Nurse Practitioner; ATTEND Internal Medicine
DX: N39.0 Urinary tract infection, site not specified (principal); N17.9 Acute kidney failure, unspecified; C90.00 Multiple myeloma not having achieved remission; B96.89 Other specified bacterial agents as the cause of diseases classified elsewhere; H40.9 Unspecified glaucoma; R74.8 Abnormal levels of other serum enzymes; E05.90 Thyrotoxicosis, unspecified without thyrotoxic crisis or storm; Z79.82 Long term (current) use of aspirin; Z79.899 Other long term (current) drug therapy; Z88.0 Allergy status to penicillin
CPT/HCPCS: 36415; 70450; 71046; 80048; 80053; 81003; 81015; 83605; 83735; 84439; 84443; 84479; 84484; 85025; 93005; 96365; 99284; A9270-GY; G0378; J0696; J1650; J3480